=== PATIENT | male | born 1950 | race Caucasian/White ===

== ENCOUNTER → 2020-06-11 13:29 | Outpatient (BNVA) | payer OTHER, SELFPAY | PROVIDERS: Visit Provider Physician Assistant | DX: S64.11XA Injury of median nerve at wrist and hand level of right arm, initial encounter (principal); X58.XXXA Exposure to other specified factors, initial encounter; R20.2 Paresthesia of skin | CPT/HCPCS: 29125; 73110; 73130; 99204 ==

== ENCOUNTER → 2020-06-19 09:51 | Outpatient (BNVA) | payer OTHER, SELFPAY | PROVIDERS: Visit Provider Physician Assistant | DX: S66.911D Strain of unspecified muscle, fascia and tendon at wrist and hand level, right hand, subsequent encounter (principal); X58.XXXD Exposure to other specified factors, subsequent encounter | CPT/HCPCS: 99213 ==

== ENCOUNTER → 2020-06-28 13:30 | Outpatient (BNVA) | payer OTHER, SELFPAY | PROVIDERS: Visit Provider Physician Assistant Medical | DX: S63.501D Unspecified sprain of right wrist, subsequent encounter (principal); X58.XXXD Exposure to other specified factors, subsequent encounter | CPT/HCPCS: 99213 ==

== ENCOUNTER → 2020-07-11 09:18 | Outpatient (BNVA) | payer OTHER, SELFPAY | PROVIDERS: Visit Provider Physician Assistant | DX: S63.501D Unspecified sprain of right wrist, subsequent encounter (principal); X58.XXXD Exposure to other specified factors, subsequent encounter | CPT/HCPCS: 99213 ==

== ENCOUNTER → 2020-08-10 09:11 | Outpatient (BNVA) | payer OTHER, SELFPAY | PROVIDERS: Visit Provider Physician Assistant Medical | DX: S63.501D Unspecified sprain of right wrist, subsequent encounter (principal); X58.XXXD Exposure to other specified factors, subsequent encounter | CPT/HCPCS: 99213 ==

== ENCOUNTER → 2020-09-14 09:22 | Outpatient (BNVA) | payer OTHER, SELFPAY | PROVIDERS: Visit Provider Physician Assistant Medical | DX: G56.01 Carpal tunnel syndrome, right upper limb (principal); S63.501D Unspecified sprain of right wrist, subsequent encounter; X58.XXXD Exposure to other specified factors, subsequent encounter | CPT/HCPCS: 99213 ==

== ENCOUNTER → 2020-09-28 14:06 | Outpatient (BNVA) | payer OTHER, SELFPAY | PROVIDERS: Visit Provider Physician Assistant Medical | DX: S63.501D Unspecified sprain of right wrist, subsequent encounter (principal); X58.XXXD Exposure to other specified factors, subsequent encounter | CPT/HCPCS: 99213 ==

== ENCOUNTER → 2020-10-03 12:36 | Outpatient (BNVA) | payer OTHER, SELFPAY | PROVIDERS: Visit Provider Physician Assistant Medical | DX: M67.833 Other specified disorders of tendon, right wrist (principal); M65.9 Synovitis and tenosynovitis, unspecified | CPT/HCPCS: 99213 ==

== ENCOUNTER → 2020-11-14 08:19 | Outpatient (BNVA) | payer OTHER, SELFPAY | PROVIDERS: Visit Provider Orthopaedic Surgery | DX: M67.431 Ganglion, right wrist (principal); M77.8 Other enthesopathies, not elsewhere classified | CPT/HCPCS: 99202 ==

== ENCOUNTER 2022-07-08 08:29 | Outpatient (REF) | payer MEDICARE, SELFPAY ==
--- NOTE | ~2022-07-08 | XR_ITS ---
EXAMINATION: XR wrist RT min 3V CLINICAL INFORMATION: Reason for Exam M25.531 - Pain in right wrist COMPARISON: 06/11/2020 wrist radiographs TECHNIQUE: AP, lateral, and oblique views of the wrist FINDINGS: No acute fracture or dislocation. Joint spaces are maintained without significant degenerative change. No soft tissue abnormality. XR/XR wrist RT min 3V IMPRESSION: No acute osseous abnormality.
== END 2022-07-08 08:30 | disposition home or self-care (01) ==
LOC: HO.HOSX 08:29
PROVIDERS: PCP Internal Medicine; Visit Provider Orthopaedic Surgery
DX: M25.531 Pain in right wrist (principal); M77.8 Other enthesopathies, not elsewhere classified
CPT/HCPCS: 20550; 73110; 99212; J1100

== ENCOUNTER 2025-05-05 05:43 | Outpatient (REF) | payer OTHER, MEDICARE, SELFPAY ==
[2025-05-05 05:45] LABS: MANUAL DIFF FLAG NO
[2025-05-05 06:07] LABS: Hematocrit 39.5 % (42.0-52.0); Hemoglobin 13.1 g/dl (14.0-18.0); Imm Gran Abs Auto 0.32 X10*3/uL (0.00-0.03); Imm Gran Pct Auto 2.0 % (0.0-0.4); Lymphocytes Absolute Auto 0.7 X10*3/uL (1.2-4.9); Mean Corpuscular HGB Conc 33.2 g/dl (31.0-36.0); Mean Corpuscular Hemoglobin 29.8 pg (27.0-33.0); Mean Corpuscular Volume 89.8 fL (80.0-98.0); NRBC Abs Auto 0.000 X10*3/uL (0.0-0.012); NRBC Pct Auto 0.0 /100WBC (0.0-0.2); Platelet Count 173 X10*3/uL (160-400); Red Blood Count 4.40 X10*6/uL (4.60-5.80); White Blood Count 16.3 X10*3/uL (4.8-10.8)
[2025-05-05 06:23] LABS: Alanine Aminotransferase 40 U/L (0-40); Albumin Level 3.2 g/dL (3.5-5.0); Alkaline Phosphatase 74 U/L (39-117); Anion Gap 15 (12-20); Aspartate Amino Transferase 17 U/L (5-37); Blood Urea Nitrogen 25 mg/dL (9-16); Calcium 9.0 mg/dL (8.4-10.2); Carbon Dioxide 24 mmol/L (22-29); Chloride 107 mmol/L (96-108); Estimated Glomerular Filt Rate > 60; Potassium 4.1 mmol/L (3.3-5.1); Sodium 142 mmol/L (135-145); Total Protein 5.4 g/dL (6.5-8.0)
== END 2025-05-05 05:44 | disposition home or self-care (01) ==
LOC: HO.MMNH1L 05:43
PROVIDERS: Visit Provider Physician Assistant Medical
DX: B37.81 Candidal esophagitis (principal)
CPT/HCPCS: 36415; 80053; 83036; 85025

== ENCOUNTER 2025-05-08 05:45 | Outpatient (REF) | payer OTHER, MEDICARE, SELFPAY ==
--- OUTSIDE RECORDS SUMMARY | 2025-05-02 07:20 | XMS_ITS | Encounter Summary ---
Author Organization [facility] Address [address] [place] [address] Care Team Providers Care Candles Pourer Name Role Phone IssaRashaun griffithsdominic MORRISON Primary Care Provider [phone] Reason for Visit * Reason Comments Shortness of Breath Since yesterday nigh t * Auth/Cert (Routine) Specialty Diagnoses / Procedures Referred By Contac t Referred To Contact Diagnoses COPD (chronic obstructive pulmonary disease) (CMS/HCC V24, CMS/HCC V28) COPD exacerbation (CMS/HCC V24, CMS/HCC V28) Procedures . Gumaro Sloan MD [address] [place] [id number] Phone: tel: fax: [facility] [address] [place] [phone] Phone: tel: Referral ID Status Reason Start Date Expiration Date Visits Re quested Visits Authorized [id number] 1 1 Encounter Details Date Type Department Care Team (Latest Contact Info) Description 05/02/2025 7:20 AM EDT - 05/04/2025 4:38 PM EDT Hospital Encounter [facility] Inter[facility] Care Unit [address] [place] [address] Dano Gaspar MD [address] [place] [address] Gumaro Sloan MD [address] [place] [address] Marcell Botello MD [address] [place] [id number] Andrew Nieto MD [address] [place], [place] [phone] COPD exacerbation (CMS/HCC V24, CMS/HCC V28) (Primary Dx) Discharge Disposition: Custodial Facility Social History Tobacco Use Types Packs/Day Years Used Date Smoking Tobacco: Former Cigarettes Q uit: 07/20/1999 Smokeless Tobacco: Never Alcohol Use Standard Drinks/Week Comments Not Currently 0 (1 standard drink = 0.6 oz pur e alcohol) Housing Instability Answer Date Recorde d Are you worried that in the next 2 months you may not have stable housing? No 04/13/2025 Food Access & Nutrition Answer Date Rec orded Do you have access to a vari ety of food including fruits and vegetables? Yes 04/13/2025 Access to Healthcare Answer Date Record ed Within the last 3 months, ho w many times did you visit the emergency department for your medical care? 3 04/13/2025 Health Literacy Answer Date Recorded How often do you need to hav e someone help you when you read instructions, pamphlets, or other written material from your doctor or pharmacy? Never 04/13/2025 Caregiver: How often do you need to have someone help you when you read instructions, pamphlets, or other written material from your doctor or pharmacy? Not on file 04/13/2025 Financial Risk Answer Date Recorded How hard is it for you to pa y for the very basics like food, housing, medical care, and air conditioning / heating? Not very hard 04/13/2025 Transportation Answer Date Recorded Has the lack of transportati on kept you from meetings, work, or from getting things needed for daily living? No Has the lack of transportati on kept you from medical appointments or from getting medications? No 04/13/2025 Social Isolation Answer Date Recorded How often do you feel lonely or isolated from th ose around you? Never 04/13/2025 Food Risk Answer Date Recorded Within the past 12 months we worried whether our food would run out before we got money to buy more. Never true 04/13/2025 Within the past 12 months th e food we bought just didn't last and we didn't have money to get more. Never true 04/13/2025 Dependent Care Answer Date Recorded Do you need help finding or paying for care for your loved ones. For example, residential child care counselor or elderly care for an older adult? No 04/13/2025 Education Answer Date Recorded Do you think completing more education or training, like finishing a GED, going to college, or learning a trade, would be helpful for you? N/A 04/13/2025 Employment and Income Answer Date Recor ded During the last four weeks, have you been actively looking for work? No 04/13/2025 Living Situation Answer Date Recorded What is your living situation? Unrecognized valu e 04/13/2025 Interpersonal Safety Answer Date Record ed Physical Abuse Unrecognized value 05/02/2025 Verbal Abuse Unrecognized value 05/02/2025 Sex and Gender Information Value Date Recorded Sex Assigned at Male 08/11/2024 11:14 AM EST Legal Sex Male 6:45 AM EST Gender Identity Male 08/11/2024 11:14 AM EST Sexual Orientation Straight 08/11/2024 11 :14 AM EST documented as of this encounter Last Filed Vital Signs Vital Sign Reading Time Taken Comments Blood Pressure 145/78 05/04/2025 11:59 AM EDT Pulse 109 05/04/2025 11:59 AM EDT Temperature 36.1 C (96.9 F) 05/04/2025 11:59 AM EDT Respiratory Rate 28 05/04/2025 11:5 9 AM EDT Oxygen Saturation 93% 05/04/2025 12: 00 PM EDT 02 93 at rest and 89-92% with amb short distances on 3L Inhaled Oxygen Concentration - - Weight 89.8 kg (198 lb) 05/02/2025 7:37 AM EDT Height 172.7 cm (5' 8 ) 05/02/2025 7:37 AM EDT Body Mass Index 30.11 05/02/2025 7:37 AM EDT documented in this encounter Functional Status * Calculated C-SSRS Risk Score (Lifetime/Recent) Answer Date of Assessment Author No Risk Indicated 05/02/2025 7:37 AM EDT Sunita Jarvis RN * [place] Suicide Severity Rating Scale (Screener/Recent Self-Report) Question Answer Date of Assessment Author 1. Wish to be (Past 1 Month) No 7:37 AM EDT Sunita Jarvis RN 2. Non-Specific Active Suici alec Thoughts (Past 1 Month) No 05/02/2025 7:37 AM EDT Nataly Jarvis RN 6. Suicidal Behavior (Lifetime) No 7:37 AM EDT Sunita Jarvis RN documented as of this encounter Discharge Summaries * [facility] - 05/04/2025 12:54 PM EDT [place] DISCHARGE SUMMARY Patient Information Mervin Christian : 1950 [74 y.o.] Admitting Provider Gumaro Sloan MD Discharge Provider [facility], Andrew Nieto MD Primary Care Physician Karen Parsons NP Admission Date 05/02/2025 Discharge Date 05/04/2025 Summary of Hospital Problems Primary Discharge Diagnosis: Candidiasis of esophagus suspected ([facility] V24, [facility] V28) Oral candidiasis confirmed Acute on chronic hypoxic respiratory failure Secondary Discharge Diagnosis: End-stage COPD steroid, oxygen and NIPPV dependent Chronic hypoxic respiratory failure 3 L with rest 6 L with exertion History of pulmonary embolism Permanent atrial fibrillation with RVR Hypertension Anxiety Discharge Destination: SNF-anticipated length of stay less than 30 days Code Status at Discharge: Full Code - Confirmed Hospital Course Summary LOS: 0 days This is a 74-year-old male past medical history significant for chronic respiratory failure with hypoxia on 3 L O2 via NC and nocturnal BiPAP, COPD, pulmonary nodules, chronic atrial fibrillation oneliquis, hypertension, hyperlipidemia, history of PE, anxiety, amongst others, who presents emergency room with complaints of shortness of breath. Of note patient was recently hospitalized at [facility] 04/21/2025 to 04/25/2025 with acuteon chronic hypoxic respiratory failure with COVID-19 pneumonia and COPD exacerbation. Patient states that last night 05/01/2025 he developed shortness of breath, dry nonproductive cough, difficulty swallowing (which he believes is related to dry throat), and ongoing chest pain. Describes chest pain as: Constant, central, localized, nonradiating, pressure sensation. He presents emergency room for further evaluation and treatment. Denies fever, chills, focal weakness, headache, lightheadedness, dizziness, sore throat, congestion, palpitations, abdominal pain, nausea, vomiting, diarrhea, constipation, dysuria or hematuria. Denies recent travel, surgeries or sick contacts. Upon H&P patient is afebrile, heart rate 101, respiratory rate 20, blood pressure 115/79, oxygen saturation 99% on chronic 3 L via nasal cannula. Labs performed revealing WBC 16.4, potassium 3.2,albumin 2.8, high-sensitivity troponin 14 with repeat 13, BNP 73. Chest x-ray imaging performed reve aling:Stable findings of emphysema with hyperinflation suggesting chronic obstructive pulmonary disease. Basilar predominant scarring is unchanged. Surgical changes throughout the upper lungs are stable compared to prior. No new pneumonia, pleural effusion, or pneumothorax. Cardiac silhouette is stably enlarged. Bones are unchanged. See full report for additional details. EKG performed revealing sinus rhythm with sinus arrhythmia and right bundle branch block. Patient was administered DuoNeb, Solu-Medrol, and care was transferred to medical service for further evaluation and treatment. [facility] 05/02/25 74-year-old male past medical history significant for chronic respiratory failure with hypoxia on 3-6 L O2 via NC and nocturnal BiPAP, COPD, pulmonary nodules, chronic atrial fibrillation on eliquis,hypertension, hyperlipidemia, history of PE, anxiety, who presents with complaints of shortness of breath and chest pain. COPD exacerbation Patient with severe emphysema at baseline. 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 He is dependent on high liter flow oxygen, NIPPV and chronic steroids/azithromycin due tothe severity of his underlying lung disease. Patient recently treated for COVID-19 pneumonia and exacerbation just discharged on 04/25. Chest x-ray without new pathology. 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 He received Diflucan 400 mg IV x 1 followed by Diflucan 200 mg IV daily, transition to oral to complete a 14-day course. If symptoms do not improve could trial oral I itraconazole instead. Patient would be too high risk for any endoscopic procedures. History of pulmonary embolism - Continue chronic Eliquis Chronic atrial fibrillation with RVR Secondary hypercoagulable state - Continue chronic diltiazem. Suspect resting heart rates are likely chronically elevated given underlying pulmonary disease. - Continue chronic Eliquis Primary hypertension - Continue diltiazem as prescribed Mixed hyperlipidemia - Continue chronic statin Anxiety - Continue as needed alprazolam Advance directives More than 40 minutes spent discussing advance directives today: Prolonged discussions with patient's daughter Brittany Christian and the patient in regards to the severity of his underlying lung disease. Patient reports he was unaware of this. He reports the most relief he felt was and route to the hospital where he was administered something in my IV that made me relax . I suspect this was IV fentanyl for increased work of breathing. HARSH reviewed with the daughter and the patient. He has remained a full code. I have explained that given the severity of his lung disease if he were to require intubation his chances of extubation are extremely poor. We discussed quality of life options. I have o ffered palliative care consultation. 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 I have offered pulmonary consultation with the covering physician but they have declined. Patient's severe lung disease would qualify him for hospice. Morphine forincreased work of breathing could potentially improve his quality of life. Recommend continue ongoing discussions. Patient remains a full code. Follow-Up Instructions and Recommendations [facility] [place] [address] [facility], [address] [facility] [phone] No discharge procedures on file. There are no outpatient Patient Instructions on file for this admission. Discharge Medications Your medication list START taking these medications Instructions Last Dose Given Next Dose Due fluconazole 200 mg tablet Commonly known as: DIFLUCAN Take 1 tablet (200 mg total) by mouth 1 (one) time each day for 12 days. ipratropium-albuteroL 0.5-2.5 mg/3 mL nebulizer solution Commonly known as: DUONEB Take 3 mL by nebulization 4 (four) times a day. CHANGE how you take these medications Instructions Last Dose Given Next Dose Due predniSONE 10 mg tablet Commonly known as: DELTASONE Start taking on: May 04, 2025 What changed: See the new instructions. Take 3 tablets (30 mg total) by mouth 1 (one) time each day for 2 days, THEN 2 tablets (20 mg total) 1 (one) time each day for 2 days, THEN 1 tablet (10 mg total) 1 (one) time each day. CONTINUE taking these medications Instructions Last Dose Given Next Dose Due albuterol HFA 90 mcg/actuation inhaler Commonly known as: PROAIR HFA ; PROVENTIL HFA ; VENTOLIN HFA Inhale 2 puffs by mouth every 6 (six) hours if needed for wheezing. ALPRAZolam 0.5 mg tablet Commonly known as: XANAX Take 1 tablet (0.5 mg total) by mouth 3 (three) times a day if needed for anxiety. Max Daily Amount: 1.5 mg atorvastatin 20 mg tablet Commonly known as: LIPITOR TAKE 1 TABLET BY MOUTH EVERY DAY azithromycin 500 mg tablet Commonly known as: Zithromax Take 1 tablet (500 mg total) by mouth 3 (three) times a week. cholecalciferol 50 mcg (2,000 unit) tablet Commonly known as: VITAMIN D-3 TAKE 1 TABLET BY MOUTH EVERY DAY dilTIAZem LA 240 mg 24 hr tablet Commonly known as: CARDIZEM LA TAKE 1 TABLET BY MOUTH EVERY DAY Eliquis 5 mg tablet Generic drug: apixaban TAKE 1 TABLET BY MOUTH TWICE A DAY Incruse Ellipta 62.5 mcg/actuation inhalation Generic drug: umeclidinium INHALE 1 PUFF INTO THE LUNGS DAILY FOR 30 DAYS. montelukast 10 mg tablet Commonly known as: SINGULAIR TAKE 1 TABLET BY MOUTH EVERY NIGHT AT BEDTIME. roflumilast 500 mcg tablet Commonly known as: DALIRESP Take 1 tablet (500 mcg total) by mouth 1 (one) time each day. sildenafiL 50 mg tablet Commonly known as: VIAGRA Take 1 tablet (50 mg total) by mouth 1 (one) time each day if needed for erectile dysfunction. Where to Get Your Medications These medications were sent to [facility]/pharmacy #[id number] - [place] - [address] [place] [address] Hours: 24-hours predniSONE 10 mg tablet Information about where to get these medications is not yet available Ask your nurse or doctor about these medications fluconazole 200 mg tablet ipratropium-albuteroL 0.5-2.5 mg/3 mL nebulizer solution Physical Exam at time of Discharge Physical Exam Constitutional: Appearance: Normal appearance. HENT: Head: Normocephalic and atraumatic. Mouth/Throat: Mouth: Mucous membranes are dry. Comments: Oropharynx erythematous with white plaque Eyes: Extraocular Movements: Extraocular movements intact. Conjunctiva/sclera: Conjunctivae normal. Pupils: Pupils are equal, round, and reactive to light. Cardiovascular: Rate and Rhythm: Normal rate and regular rhythm. Pulmonary: Effort: Tachypnea and accessory muscle usage present. Breath sounds: Normal breath sounds. No wheezing, rhonchi or rales. Comments: Patient without wheeze rhonchi or crackle with good air movement today Abdominal: General: Bowel sounds are normal. There is no distension. Palpations: Abdomen is soft. There is no mass. Tenderness: There is no abdominal tenderness. There is no rebound. Musculoskeletal: General: Normal range of motion. Cervical back: Normal range of motion. Skin: General: Skin is warm. Neurological: General: No focal deficit present. Mental Status: He is alert and oriented to person, place, and time. Comments: Tremor Psychiatric: Mood and Affect: Mood is anxious. Vitals Visit Vitals BP (!) 145/78 Pulse 109 Temp 36.1 ??C (96.9 ??F) Resp (!) 28 Temp (24hrs), Av.3 ??C (97.4 ??F), Min:36.1 ??C (96.9 ??F), Max:36.6 ??C (97.8 ??F) Body mass index is 30.11 kg/m??. No results found for: PTWT , PTHT Latest Reference Range & Units Most Recent pH, Tulio 7.32 - 7.42 pH 7.40 05/02/25 09:33 pCO2, Tulio 41 - 51 mmHg 59 (H) 05/02/25 09:33 pO2, Tulio 25 - 40 mmHg 28 05/02/25 09:33 HCO3, Venous 22.0 - 26.0 mmol/L 30.5 (H) 05/02/25 09:33 Base Excess, Tulio -2.0 - 2.0 mmol/L 9.4 (H) 05/02/25 09:33 O2 Sat, Tulio % 37.5 05/02/25 09:33 Sodium 133 - 145 mmol/L 143 05/04/25 06:30 Potassium 3.5 - 5.5 mmol/L 3.7 05/04/25 06:30 Chloride 96 - 110 mmol/L 107 05/04/25 06:30 CO2 21 - 32 mmol/L 27 05/04/25 06:30 Anion Gap 3 - 11 9 05/04/25 06:30 Glucose 70 - 100 mg/dL 158 (H) 05/04/25 06:30 BUN 5 - 25 mg/dL 22 05/04/25 06:30 Creatinine 0.70 - 1.30 mg/dL 1.13 05/04/25 06:30 Calculated GFR >=60 mL/min/1.73m2 69 05/04/25 06:30 BUN/Creatinine Ratio - 19.5 05/04/25 06:30 Calcium 8.5 - 10.5 mg/dL 9.2 05/04/25 06:30 AST (SGOT) 10 - 42 unit/L 19 05/02/25 07:55 ALT (SGPT) 10 - 60 unit/L 54 05/02/25 07:55 Alkaline Phosphatase 42 - 121 unit/L 86 05/02/25 07:55 Total Protein 6.0 - 8.0 g/dL 5.8 (L) 05/02/25 07:55 Albumin 3.2 - 5.0 g/dL 2.8 (L) 05/02/25 07:55 Total Bilirubin 0.0 - 1.4 mg/dL 1.0 05/02/25 07:55 (H): Data is abnormally high (L): Data is abnormally low Latest Reference Range & Units Most Recent B Type Natriuretic Peptide <=100 pcg/mL 73 10/14/25 07:55 High Sensitivity Troponin I <=79 ng/L 13 05/02/25 09:33 Latest Reference Range & Units Most Recent Auto WBC 4.8 - 10.8 K/mcL 16.3 (H) 05/04/25 06:30 RBC 4.50 - 5.50 M/mcL 4.50 05/04/25 06:30 Hemoglobin 13.5 - 17.5 g/dL 13.6 05/04/25 06:30 Hematocrit 42.0 - 54.0 % 40.7 (L) 05/04/25 06:30 MCV 79.0 - 98.0 FL 89.6 05/04/25 06:30 MCH 27.0 - 32.0 pcg 30.0 05/04/25 06:30 MCHC 32.0 - 37.0 g/dL 33.4 05/04/25 06:30 RDW 11.0 - 15.0 % 16.8 (H) 05/04/25 06:30 Platelets 130 - 400 K/mcL 178 05/04/25 06:30 MPV 7.0 - 11.0 FL 10.4 05/04/25 06:30 Neutrophils Relative % 91.7 05/04/25 06:30 Immature Granulocytes Relative % 2.6 05/04/25 06:30 Lymphocytes Relative % 3.1 05/04/25 06:30 Monocytes Relative % 2.3 05/04/25 06:30 Eosinophils Relative % 0.0 05/04/25 06:30 Basophils Relative % 0.3 05/04/25 06:30 Neutrophils Absolute 1.50 - 7.00 K/mcL 14.96 (H) 05/04/25 06:30 Immature Granulocytes Absolute 0.00 - 0.03 K/mcL 0.42 (H) 05/04/25 06:30 Lymphocytes Absolute 1.00 - 5.00 K/mcL 0.51 (L) 05/04/25 06:30 Monocytes Absolute 0.20 - 1.00 K/mcL 0.38 05/04/25 06:30 Eosinophils Absolute 0.00 - 0.50 K/mcL 0.00 05/04/25 06:30 Basophils Absolute 0.00 - 0.20 K/mcL 0.05 05/04/25 06:30 NRBC <1.0 % 0.0 05/04/25 06:30 NRBC Absolute <0.10 K/mcL 0.00 05/04/25 06:30 Neutrophils Percent Manual % 85.0 05/02/25 07:55 Lymphocytes Percent Manual % 9.0 05/02/25 07:55 Monocytes Percent Manual % 3.0 05/02/25 07:55 Eosinophils Percent Manual % 2.0 05/02/25 07:55 Basophils Percent Manual % 0.0 05/02/25 07:55 Metamyelocytes Percent Manual % 2.0 (H) 05/02/25 07:55 Myelocytes Percent Manual % 1.0 (H) 05/02/25 07:55 Neutrophils Absolute Manual 1.50 - 7.00 K/mcL 13.94 (H) 05/02/25 07:55 Lymphocytes Absolute Manual 1.00 - 5.00 K/mcL 1.48 05/02/25 07:55 Monocytes Absolute Manual 0.20 - 1.00 K/mcL 0.49 05/02/25 07:55 Eosinophils Absolute Manual 0.00 - 0.50 K/mcL 0.33 05/02/25 07:55 Basophils Absolute Manual 0.00 - 0.20 K/mcL 0.00 05/02/25 07:55 Metamyelocytes Absolute Manual 0.00 - 0.00 K/mcL 0.33 (H) 05/02/25 07:55 Myelocytes Absolute Manual 0.00 - 0.00 K/mcL 0.16 (H) 05/02/25 07:55 RBC Morphology Consistent with indices, Normal for [place] Consistent with indices 05/02/25 07:55 PLT Morphology Normal See Note ! 05/02/25 07:55 (H): Data is abnormally high (L): Data is abnormally low !: Data is abnormal XR CHEST 2 VIEWS INDICATION: Dyspnea TECHNIQUE: XR CHEST 2 VIEWS COMPARISON: 04/21/2025 Impression: FINDINGS/IMPRESSION: Stable findings of emphysema with hyperinflation suggesting chronic obstructive pulmonary disease. Basilar predominant scarring is unchanged. Surgical changes throughout the upper lungs are stable compared to prior. No new pneumonia, pleural effusion, or pneumothorax. Cardiac silhouette is stably enlarged. Bones are unchanged. -------- FINAL REPORT -------- Dictated By: SUDEEP CAMPOS Dictated Date: 05/02/2025 40 minutes spent reviewing medical record, independently interpreting telemetry monitoring, evaluating the patient, coordinating care with physical therapy, ICC, RN and attending physician to facilitate today's discharge. Additional 40 minutes spent with Brittany Christian and patient discussing advance directives, reviewingMOLST, goals of care, please see above Cosigned by Andrew Nieto MD at 05/06/2025 1:34 PM EDT documented in this encounter Discharge Instructions * Attachments The following attachments cannot be sent through Care Everywhere. * COPD Exacerbation Plan (Hungarian) documented in this encounter Medications at Time of Discharge albuterol HFA (PROAIR HFA ; PROVENTIL HFA ; VENTOLIN HFA) 90 mcg/actuation inhaler Inhale 2 puffs by mouth every 6 (six) hours if needed for wheezing. 6.7 g 11 06/23/2024 ALPRAZolam (XANAX) 0.5 mg tablet Take 1 tablet (0.5 mg total) by mouth 3 (three) times a day if needed for anxiety. Max Daily Amount: 1.5 mg 56 tablet 2 12/02/2024 atorvastatin (LIPITOR) 20 mg tablet TAKE 1 TABLET BY MOUTH EVERY DAY 90 tablet 1 04/18/2025 azithromycin (Zithromax) 500 mg tablet Take 1 tablet (500 mg total) by mouth 3 (three) times a week. 14 each 2 04/17/2025 cholecalciferol (VITAMIN D-3) 50 mcg (2,000 unit) tablet TAKE 1 TABLET BY MOUTH EVERY DAY 90 tablet 1 02/20/2025 dilTIAZem LA (CARDIZEM LA) 240 mg 24 hr tabletIndications :Unspecified atrial fibrillation (CMS/HCC V24, CMS/HCC V28) TAKE 1 TABLET BY MOUTH EVERY DAY 90 tablet 1 04/05/2025 Eliquis 5 mg tablet TAKE 1 TABLET BY MOUTH TWICE A DAY 60 tablet 5 12/14/2024 fluconazole (DIFLUCAN) 200 mg tablet Take 1 tablet (200 mg total) by mouth 1 (one) time each day for 12 days. 05/04/2025 5 Incruse Ellipta 62.5 mcg/actuation inhalation INHALE 1 PUFF INTO THE LUNGS DAILY FOR 30 DAYS. 30 each 11 01/17/2025 ipratropium-albut Tavon (DUONEB) 0.5-2.5 mg/3 mL nebulizer solution Take 3 mL by nebulization 4 (four) times a day. 05/04/2025 6 montelukast (SINGULAIR) 10 mg tabletIndications :Emphysema, unspecified (CMS/HCC V24, CMS/HCC V28) TAKE 1 TABLET BY MOUTH EVERY NIGHT AT BEDTIME. 30 tablet 10 08/15/2024 predniSONE (DELTASONE) 10 mg tablet Take 3 tablets (30 mg total) by mouth 1 (one) time each day for 2 days, THEN 2 tablets (20 mg total) 1 (one) time each day for 2 days, THEN 1 tablet (10 mg total) 1 (one) time each day. 370 each 05/04/2025 6 roflumilast (DALIRESP) 500 mcg tablet Take 1 tablet (500 mcg total) by mouth 1 (one) time each day. 30 each 11 08/25/2024 6 sildenafiL (VIAGRA) 50 mg tablet Take 1 tablet (50 mg total) by mouth 1 (one) time each day if needed for erectile dysfunction. 12 tablet 3 10/14/2024 6 documented as of this encounter Ordered Prescriptions Prescription Sig Dispense Quantity Refills Last Filled Start Date End Date predniSONE (DELTASONE) 10 mg tablet Take 3 tablets (30 mg total) by mouth 1 (one) time each day for 2 days, THEN 2 tablets (20 mg total) 1 (one) time each day for 2 days, THEN 1 tablet (10 mg total) 1 (one) time each day. 370 each 05/04/2025 6 ipratropium-albut Tavon (DUONEB) 0.5-2.5 mg/3 mL nebulizer solution Take 3 mL by nebulization 4 (four) times a day. 05/04/2025 6 fluconazole (DIFLUCAN) 200 mg tablet Take 1 tablet (200 mg total) by mouth 1 (one) time each day for 12 days. 05/04/2025 5 predniSONE (DELTASONE) 10 mg tablet Take 5 tablets (50 mg total) by mouth 1 (one) time each day for 2 days, THEN 4 tablets (40 mg total) 1 (one) time each day for 2 days, THEN 3 tablets (30 mg total) 1 (one) time each day for 2 days, THEN 2 tablets (20 mg total) 1 (one) time each day for 2 days, THEN 1 tablet (10 mg total) 1 (one) time each day. 05/04/2025 5 documented in this encounter Discharge Disposition Disposition Code Departure Means Destination Comment s Custodial Facility Ambulance [facility] Nursing, Intermediate Care, or Assisted Living Facility documented in this encounter Progress Notes * Mary Mejía RN - 05/04/2025 4:37 PM EDT Patient alert and oriented. Stable for discharge to SNF per [facility]. Discharge paperwork given to EMS team with [facility]. IV removed. Patient transported via [facility] * Marian Hartley RN - 05/04/2025 2:18 PM EDT 05/04/25 1417 Transportation Transportation at discharge [facility] providing transportation [place] What day is the transport expected? 05/04/25 What time is the transport expected? 1600 Final Discharge Disposition Custodial Facility ICC spoke with [facility] and confirmed acceptance to facility today. Pt d/c to [facility] per pt preference. Pt/daughter at bedside aware and agreeable to d/c plan * Sofia Sarmiento, PT - 05/04/2025 12:00 PM EDT [facility] Physical Therapy Evaluation & Treatment PT Discharge Recommendations: custodial facility placement Staff Recommendations for safe patient handling: min A ambulate 5' with no assistive device Precautions Medical Precautions: Droplet, Other (Comment) Safety Interventions: Call golden within reach, ID band on RUE Weight Bearing Status: Full LUE Weight Bearing Status: Full RLE Weight Bearing Status: Full LLE Weight Bearing Status: Full Fall prevention education provided including use of call light in hospital, use of appropriate assistive device, safe mobility techniques, and safety measures at home. PT Received On: 05/04/25 PT Start Time: 1200 PT Stop Time: 1230 PT Time Calculation (min): 30 min General Family/Caregiver Present: Yes General Comments: daughter Precautions Medical Precautions: Droplet, Other (Comment) Safety Interventions: Call golden within reach, ID band on Swallow Precautions: Aspiration RUE Weight Bearing Status: Full LUE Weight Bearing Status: Full RLE Weight Bearing Status: Full LLE Weight Bearing Status: Full Cognition Overall Cognitive Status: Within Functional Limits Arousal/Alertness: Appropriate responses to stimuli Orientation Level: Oriented X4 Following Commands: Follows all commands and directions without difficulty Safety Judgment: Good awareness of safety precautions Hearing: Intact Vision: Intact Speech: Intact Integumentary: no acute issues noted History of Present Illness: Patient is a 74 y.o. male admitted to [facility] on 05/02/2025. Problem List[1] Medical History[2] Surgical History[3] Social History Home Living Environment: Home Living Type of Home: Apartment Lives With: Alone Home Adaptive Equipment: None Home Layout: One level Home Access: Stairs to enter with rails Entrance Stairs-Rails: Rail on the right going up Entrance Stairs-Number of Steps: 10 Prior Function Level of [place]: Independent with mobility and functional transfers Ambulation Status: Household ambulator, Community ambulator Receives Help From: Family Indoor Mobility Assistance: Independent Stairs Assistance : Independent Prior Device Use: No prior device use Which is your dominant hand?: Right General Assessment Management Intern Services Is an book jacket cover machine operator used? : No 05/04/25 1200 PT Last Visit PT Received On 05/04/25 General Family/Caregiver Present Yes General Comments daughter PT Time Calculation PT Start Time 1200 PT Stop Time 1230 PT Time Calculation (min) 30 min Precautions Medical Precautions Droplet;Other (Comment) Safety Interventions Call golden within reach;ID band on RUE Weight Bearing Status Full LUE Weight Bearing Status Full RLE Weight Bearing Status Full LLE Weight Bearing Status Full Vital Signs Patient Identification Yes SpO2 93 % (02 93 at rest and 89-92% with amb short distances on 3L) Oxygen Therapy Pulse Oximetry Location Finger Patient Activity Walking Oxygen Therapy Supplemental oxygen O2 Delivery Method Nasal cannula O2 Flow Rate (L/min) 3 L/min Pain Assessment Pain Assessment No/denies pain Pain Score 0 - No pain Cognition Overall Cognitive Status WFL Arousal/Alertness Appropriate responses to stimuli Orientation Level Oriented X4 Following Commands Follows all commands and directions without difficulty Safety Judgment Good awareness of safety precautions Home Living Type of Home Apartment Lives With Alone Home Adaptive Equipment None Home Layout One level Home Access Stairs to enter with rails Entrance Stairs-Rails Rail on the right going up Entrance Stairs-Number of Steps 10 Prior Function Level of [place] Independent with mobility and functional transfers Ambulation Status Household ambulator;Community ambulator Receives Help From Family Indoor Mobility Assistance Independent Stairs Assistance Independent Prior Device Use No prior device use Which is your dominant hand? Right Activity Tolerance Endurance Tolerates less than 10 min exercise with changes in vital signs Activity Tolerance Comments the pt with severe SOB with minimal exertion, 02 sats 89-91% on 3L but needs extended period of time to catch his breath and cues needed for pursed lip breathing Sensation Light Touch No apparent deficits Proprioception Proprioception No apparent deficits Static Sitting Balance Static Sitting-Level of Assistance Independent Static Sitting-Balance Support Feet supported Dynamic Sitting Balance Dynamic Sitting-Level of Assistance Supervision Dynamic Sitting-Balance Forward lean Dynamic Sitting-Balance Support Feet supported;Left upper extremity supported;Right upper extremitysupported Static Standing Balance Static Standing-Level of Assistance Contact guard Static Standing-Balance Support No upper extremity supported Dynamic Standing Balance Dynamic Standing-Level of Assistance Minimum assistance Dynamic Standing-Balance Ambulation Dynamic Standing-Balance Support No upper extremity supported Dynamic Standing-Comments as the pt fatigues after 4-5' of ambulation his balance decreases and he needs hands on assistance to maintain balance Bed Mobility Sitting to Lying Assistance Independent Lying to Sitting Assistance Independent Transfers Sit to Stand Assistance Contact guard Chair/Bed to Chair/Bed Transfer Assistance Contact guard Ambulation Walking Assistance Minimum assistance Walking Deficit (the pt fatigues quickly with loss of balance noted and tremors in arms with fatigue) Device No device Distance Ambulated (ft) 5 (he ambulated 5' x 3) Stairs 4 steps: Assistance Minimum assistance Rails Right Number of Stairs 2 Stairs Comments the pt needed assistance to lift up onto the step with 1 railing and became very SOB necessitating a seated rest break RUE Assessment RUE Assessment Within Functional Limits LUE Assessment LUE Assessment Within Functional Limits RLE Assessment RLE Assessment Within Functional Limits LLE Assessment LLE Assessment Within Functional Limits PT Assessment PT Assessment Results Decreased strength;Decreased endurance;Impaired balance;Impaired gait;Decreased mobility Prognosis Good Evaluation/Treatment Tolerance Patient limited by fatigue Medical Staff Made Aware Yes Plan Treatment/Interventions Functional transfer training;LE strengthening/ROM;Endurance training;Patient/family training;Bed mobility;Gait training;Balance training PT Plan Skilled PT PT Frequency 2-5 days per week PT Discharge Recommendations custodial facility placement PT - Evaluation Status Complete PT Evaluation Time Entry PT Evaluation (Moderate) Time Entry 30 ADDITIONAL COMMENTS: Chart reviewed. RN clears pt for session. Pt agrees to participate and presented in supine upon PT arrival. All lines in place. Gait belt utilized throughout treatment to maximize safety. Medical precautions observed appropriately. Initiated education on the importance of PT, bed mobility safety, Transfer Safety, Ambulation Safety , Therapy Plan of Care, Home Safety, Energy Conservations strategies, and importance of OOB activity . Pt verbalized understanding. EXIT STATUS: Session ended with patient seated at the edge of the bed , tray table and call light within reach, and RN made aware. Physical Therapy Assessment/Plan Mervin Christian is a 74 y.o. male admitted to [facility] on 05/02/2025 for COPD (chronic obstructive pulmonary disease) ([facility] V24, [facility] V28) [J44.9] COPD exacerbation ([facility] V24, [facility] V28) [J44.1] . Pt presents with decreased BLE strength, balance deficits, decreased activity tolerance, and far below functional baseline. Pt performed bed mobility Independent, HOB elevated, Transfers with Contact guard, None and ambulates Minimal assist with None 5 ft . Pt will benefit from skilled acute PT during hospital stay to improve the deficits listed above and optimize function. PT recommends custodial facility placement when medically stable for safe discharge and to optimize functional mobility and independence. Goals Encounter Problems Encounter Problems (Active) Template: Physical Therapy Problem: PT Short Term Goals Dates: Start: 05/04/25 Goal: PT STG 1 the pt will ambulate 50' with no assistive device independently Dates: Start: 05/04/25 Expected End: 05/11/25 Goal: PT STG 2 the pt will be independent with transfers Dates: Start: 05/04/25 Expected End: 05/11/25 Goal: PT STG 3 the pt will go up and down 12 steps with right railing and supervision Dates: Start: 05/04/25 Expected End: 05/11/25 Encounter Problems (Resolved) There are no resolved problems. Education Documentation Mobility Training, taught by Sofia Sarmiento, PT at 05/04/2025 12:50 PM. Learner: Family, Patient Readiness: Eager Method: Explanation, Demonstration Response: Verbalizes Understanding Comment: The pt educated on pacing, pursed lip breathing. He was also educated on recommendation for STR and is in agreement Modified Diet Training, taught by Sofia Sarmiento, PT at 05/04/2025 12:50 PM. Learner: Family, Patient Readiness: Eager Method: Explanation, Demonstration Response: Verbalizes Understanding Comment: The pt educated on pacing, pursed lip breathing. He was also educated on recommendation for STR and is in agreement Education Comments No comments found. Sofia Sarmiento, PT [1] Patient Active Problem List Diagnosis Anxiety Hypercholesterolemia Pulmonary nodules Multiple subsegmental pulmonary emboli without acute cor pulmonale ([facility] V24, [facility] V28) Paroxysmal atrial fibrillation ([facility] V24, [facility] V28) Pulmonary emphysema ([facility] V24, [facility] V28) Renal mass, left Type 2 diabetes mellitus without complication, without long-term current use of insulin ([facility] V24, [facility] V28) Acute on chronic respiratory failure with hypoxia and hypercapnia ([facility] V24, [facility] V28) Acute hypoxemic respiratory failure ([facility] V24, [facility] V28) COPD (chronic obstructive pulmonary disease) ([facility] V24, [facility] V28) Candidiasis of esophagus ([facility] V24, [facility] V28) [2] Past Medical History: Diagnosis Date Atrial fibrillation ([facility] V24, [facility] V28) DX:Atrial fibrillation ([facility]) Chronic hypoxic respiratory failure ([facility] V24, [facility] V28) NOCTURNAL BIPAP COPD (chronic obstructive pulmonary disease) ([facility] V24, [facility] V28) DX:COPD (chronic obstructive pulmonary disease) (HCC) Generalized anxiety disorder DX:Generalized anxiety disorder Hypertension Mixed hyperlipidemia DX:Mixed hyperlipidemia Pulmonary embolism ([facility]/H[facility] V24, [facility] V28) Pulmonary nodules DX:Pulmonary nodules [3] Past Surgical History: Procedure Laterality Date FOOT SURGERY Right PROCEDURE: [place] UNLISTED PROCEDURE FOOT/TOES * Basil Trent - 05/04/2025 10:14 AM EDT SPIRITUAL CARE Date/Time:05/04/25 at 10:14 AM EDT Type of Visit: Initial Visit and [employer] Rounding Reason for Visit: Spiritual/Emotional Support and Spiritual Assessment Time Spent: 15 Minutes Location: Sacramental Encounters: Sacrament of Sick-Anointing: Anointed Spiritual Distress Assessment: Spiritual Distress Assessment at beginning of visit Meaning - Overall Life Balance: Some evidence of unmet spiritual need Transcendence: No evidence of unmet spiritual need Values - Acknowledgement: No evidence of unmet spiritual need Values - Control: No evidence of unmet spiritual need Psycho-Social Identity: No evidence of unmet spiritual need SDAT Beginning of Visit Average Score: 0.2 Spiritual Distress Assessment at end of visit Meaning - Overall Life Balance: Some evidence of unmet spiritual need Transcendence: No evidence of unmet spiritual need Values - Acknowledgement: No evidence of unmet spiritual need Values - Control: No evidence of unmet spiritual need Psycho-Social Identity: No evidence of unmet spiritual need SDAT End of Visit Average Score: 0.2 Spiritual Assessment/Distress Spiritual Care Assessment: Assessment: Mervin, was awake, alert, seated in the bed resting at the time of visit. His daughter,Jose, was seated in the chair providing support. Mervin, voiced not feeling well. Hopeful with careplan and treatment to get better. Voiced appreciation for family support and love. Emelia uatsdin is Zoroastrian, expressed desire to receive sacrament of anointing of the sick, prayed for recovery and good health. Thankful for the visit. Intervention: NE Spiritual Care Interventions : provided support, explored hope, listened empathically, and provided prayer Outcomes: expressed gratitude and expressed peace Plan of Care: Visit as needed *Reference: Spiritual Distress Assessment Tool: The SDAT is a clinical tool used by chaplains to identify unmet spiritual and emotional needs that can impact Goals of Care in the following categories: Spiritual Distress Assessment Legend Spiritual Needs Related Questions Meaning Are you having difficulties coping with what is happening to your now? Does your hospitalization have any repercussions on the way you live usually? Transcendence Do you have a particular uatsdin, emelia, or spirituality? Is your uatsdin/spirituality/emelia challenged by what is happening to you now? Values Do you think that the health professionals caring for you know you well enough? Do you feel that you are participating in the decisions made about your care? Psycho-Social Identity Do you have any worries or difficulties regarding your family or other persons close to you? Do you feel lonely? Do you have links to your emelia community? SCALE 0= no evidence of unmet spiritual needs 1= some evidence of unmet spiritual needs 2= substantial evidence of unmet spiritual needs 3= evidence of severe unmet spiritual needs * Nel Damico CCC-DECATING MACHINE OPERATOR - 05/04/2025 8:30 AM EDT Images from the original note were not included. Speech Language Pathology [facility] DECATING MACHINE OPERATOR TREATMENT NOTE NAME: Mervin Christian DATE OF : 1950 ROOM: Pt ID by: Self, Full Name and DATE: 05/04/25 RECOMMENDATIONS: DIET SOLIDS RECOMMENDATIONS: IDDSI Level 7 Easy to Chew DIET LIQUIDS RECOMMENDATIONS: Thin liquids ASPIRATION RISK: Diet Solids Recommendation: IDDSI Level 7 Easy to Chew Diet Liquids Recommendation: Thin liquids Liquid Administration Via: Cup, Straw Compensatory Swallowing Strategies: Upright as possible for all oral intake, Remain upright for 20-30 minutes after meals, Alternate solids and liquids, Small bites/sips, Eat/feed slowly, Slow rate of intake Recommended Medication Route: PO IMPRESSIONS: DECATING MACHINE OPERATOR ASSESSMENT: DECATING MACHINE OPERATOR Assessment Results: Within functional limits Dysphagia Diagnosis: Within Functional Limits Evaluation/Treatment Tolerance: Patient tolerated treatment well Comments: Pt presents with functional swallow at this time, following hospitalization for COPD exacerbation secondary to COVID dx. Pt with mildly impulsive intake, with rapid intake of large boluses;however, orally managed well and no overt clinical s/s of pulmonary compromise. Recommend pt discharge from swallow services at this time, d/t observed functional swallow with IDDSI 7 ETC/0 thin liquids. Provided education re: safe swallow strategies; pt verbalized comprehension. Medical Staff Made Aware: Yes Comments: Message sent to RN, PA, and MD TIME CALCULATION: DECATING MACHINE OPERATOR Start Time: 0830 DECATING MACHINE OPERATOR Stop Time: 0845 DECATING MACHINE OPERATOR Time Calculation (min): 15 min Management Intern Required: No ADMISSION DIAGNOSIS: COPD (chronic obstructive pulmonary disease) ([facility] V24, [facility] V28) [J44.9] COPD exacerbation ([facility] V24, [facility] V28) [J44.1] FAMILY/CAREGIVER PRESENT: No SUBJECTIVE SUBJECTIVE: Chart reviewed and cleared by RN for DECATING MACHINE OPERATOR session. Pt sat in bed upon arrival, agreeableto breakfast and observation at this time; sat on side of bed for PO intake. Pt without concerns, reported tolerating IDDSI 7 ETC diet. Pt without c/o of acute pain during visit. RESPIRATORY STATUS: Nasal Cannula PRECAUTIONS: Medical Precautions: Droplet, Other (Comment) (Enhanced droplet) Swallow Precautions: Aspiration MENTAL STATUS Alert Responsive Cooperative OBJECTIVE PAIN: OXYGEN THERAPY: Patient Activity: At rest O2 Delivery Method: Nasal cannula O2 Flow Rate (L/min): 3 L/min TREATMENTS: Treatments: Swallow Function SWALLOW FUNCTION: Swallow/Oral Function Treatment Time Entry: 15 Swallow Activity 1: Thin liquids via consecutive sips via cup edge x 3 (~8 swallows total), self fed, orange juice: appropriate oral phase, no overt clinical s/s of pulmonary compromise observed. Swallow Activity 2: IDDSI 7 ETC x 4, self fed, pancakes and eggs: pt with mildly impulsive intake, evidenced by rapid intake of large boluses; however, preparation and transit managed well. Mild oralresiduals cleared with independent liquid wash. No overt clinical s/s of pulmonary compromise observed. ASPIRATION RISK: Diet Solids Recommendation: IDDSI Level 7 Easy to Chew Diet Liquids Recommendation: Thin liquids Liquid Administration Via: Cup, Straw Compensatory Swallowing Strategies: Upright as possible for all oral intake, Remain upright for 20-30 minutes after meals, Alternate solids and liquids, Small bites/sips, Eat/feed slowly, Slow rate of intake Recommended Medication Route: PO SPEECH AND LANGUAGE: CURRENT DIET ORDERED: Dietary Orders (From admission, onward) Start Ordered 05/03/25 0554 Adult diet [facility]; General, Modified Consistency Options for Liquids and Solids; Regular; IDDSI Level 7 Easy to Chew Diet effective now Question Answer Comment Location [facility] Diet Type (req) General Diet Type (req) Modified Consistency Options for Liquids and Solids General Diet Regular Modified Consistency Options for Liquids and Solids IDDSI Level 7 Easy to Chew 05/03/25 0553 PLAN DECATING MACHINE OPERATOR PLAN: Treatment/Interventions: Swallow function DECATING MACHINE OPERATOR Plan: No skilled DECATING MACHINE OPERATOR No Skilled DECATING MACHINE OPERATOR: Independent with swallowing, At baseline function DECATING MACHINE OPERATOR Frequency: Follow-up visit only DECATING MACHINE OPERATOR - Evaluation Status: Complete Diet Recommendations: IDDSI 7/0 easy to chew/thins DISCHARGE RECOMMENDATIONS No Speech-Language Pathology (DECATING MACHINE OPERATOR) services/needs at next level of care. EDUCATION EDUCATION: Education Documentation Modified Diet Training, taught by SERENA Carballo at 05/04/2025 10:12 AM. Learner: Patient Readiness: Acceptance Method: Explanation Response: Verbalizes Understanding, Demonstrated Understanding Education Comments No comments found. GOALS GOALS: Encounter Problems Encounter Problems (Active) There are no active problems. Encounter Problems (Resolved) Template: Speech Therapy Problem: Swallowing Dates: Start: 05/02/25 Resolved: 05/04/25 Goal: Patient will tolerate the least restrictive diet consistency to allow for safe consumption ofdaily meals (Resolved) Dates: Start: 05/02/25 Expected End: 05/09/25 Resolved: 05/04/25 Outcomes Date/Time User Outcome 05/04/25 1011 SERENA Carballo Completed Goal: Patient will tolerate recommended food and liquid consistencies without clinical signs and symptoms of aspirations (Resolved) Dates: Start: 05/02/25 Expected End: 05/09/25 Resolved: 05/04/25 Outcomes Date/Time User Outcome 05/04/25 1011 SERENA Carballo Completed Goal: Patient will follow recommended swallowing strategies (Resolved) Dates: Start: 05/02/25 Expected End: 05/09/25 Resolved: 05/04/25 Outcomes Date/Time User Outcome 05/04/25 1011 SERENA Carballo Completed SERENA Carballo 05/04/2025 * Shyann Staton RN - 05/03/2025 2:55 PM EDT 05/03/25 1454 Initial Transition Plan Initial Transition Plan Home Health Care Back up Transition Plan Back up Transition plan Custodial Facility Discharge Planning Living Arrangements Alone Type of Residence Private residence (2nd pa appt w 10 steps to enter) Assistive Devices None Support Systems Children Medication Coverage Has Med Coverage Under Insurance Plan Yes Medication Affordability No concerns related to payment for meds Anticipated Discharge Needs Discipline following for SNF placement Back Roll Lathe Operator Informed Choice Informed Choice Given? Yes OLYA: 05/04-05/05 Plan: [facility] vs SNF Barriers: covid +, IV abx, solu medthrush, Bipap, W 13.9, BP 144/101, occult +, Therapy Eval: pend Referral status: entered per patient choice Auth status: medicare-observation status Last BM: 05/03 HCP: Yes Support Persons and Availability: Family PCP: Karen Parsons NP * [facility] - 05/03/2025 1:25 PM EDT Images from the original note were not included. SHAAN PROGRESS NOTE Date: 05/03/2025 Author: [facility] Patient ID: Mervin Christian is a 74 y.o. male : 1950 MR#: [id number] SUBJECTIVE Subjective Patient endorses cough today with sputum production. He denies hemoptysis. Episode of questionable bright red blood per rectum overnight with heme positive stools has not recurred. Appetite is fair. Patient complains of food getting stuck just above the clavicle area when swallowing. This is new started over the past few weeks. Patient confirms he is chronically on prednisone with various doses. He reports he uses NIPPV at bedtime and throughout the day. Patient reports that he lives alone. He defers his advanced directives to his daughter Brittany. Allergies Patient has no known allergies. Current Medications: MEDSSCHEDULED[1] MEDSCONTINUOUS[2] MEDSPRN[3] OBJECTIVE Vitals: 05/02/25 [id number] 05/03/25 0335 05/03/25 0827 05/03/25 1212 BP: 134/88 (!) 144/101 120/78 127/82 BP Location: Patient Position: Pulse: 87 82 89 107 Resp: 18 18 22 18 Temp: 36.7 ??C (98.1 ??F) 36.4 ??C (97.5 ??F) 36.6 ??C (97.8 ??F) 36.6 ??C (97.8 ??F) TempSrc: SpO2: 93% 98% 96% 92% Weight: Height: Physical Exam Constitutional: Appearance: Normal appearance. HENT: Head: Normocephalic and atraumatic. Mouth/Throat: Mouth: Mucous membranes are moist. Pharynx: Oropharyngeal exudate and posterior oropharyngeal erythema present. Eyes: Extraocular Movements: Extraocular movements intact. Conjunctiva/sclera: Conjunctivae normal. Pupils: Pupils are equal, round, and reactive to light. Cardiovascular: Rate and Rhythm: Normal rate and regular rhythm. Pulmonary: Effort: Tachypnea and accessory muscle usage present. Breath sounds: Normal breath sounds. Decreased air movement present. No wheezing, rhonchi or rales. Abdominal: General: Bowel sounds are normal. There is no distension. Palpations: Abdomen is soft. There is no mass. Tenderness: There is no abdominal tenderness. There is no rebound. Musculoskeletal: General: Normal range of motion. Cervical back: Normal range of motion. Comments: Right foot self-inflicted transmetatarsal amp Skin: General: Skin is warm. Neurological: General: No focal deficit present. Mental Status: He is alert and oriented to person, place, and time. Psychiatric: Mood and Affect: Mood normal. Behavior: Behavior normal. LABS HEMATOLOGY Lab Results Component Value Date WBC 13.9 (H) 05/03/2025 HGB 12.9 (L) 05/03/2025 HCT 39.8 (L) 05/03/2025 MCV 90.2 05/03/2025 PLT 175 05/03/2025 CHEMISTRY Lab Results Component Value Date GLUCOSE 177 (H) 05/03/2025 NA 139 05/03/2025 K 5.1 05/03/2025 CO2 29 05/03/2025 CL 104 05/03/2025 BUN 19 05/03/2025 CREATININE 1.03 05/03/2025 EGFR 77 05/03/2025 CALCIUM 9.1 05/03/2025 MG 1.9 05/02/2025 ANIONGAP 6 05/03/2025 Imaging: XR Chest 2 Views Narrative: XR CHEST 2 VIEWS INDICATION: Dyspnea TECHNIQUE: XR CHEST 2 VIEWS COMPARISON: 04/21/2025 Impression: FINDINGS/IMPRESSION: Stable findings of emphysema with hyperinflation suggesting chronic obstructive pulmonary disease. Basilar predominant scarring is unchanged. Surgical changes throughout the upper lungs are stable compared to prior. No new pneumonia, pleural effusion, or pneumothorax. Cardiac silhouette is stably enlarged. Bones are unchanged. -------- FINAL REPORT -------- Dictated By: SUDEEP CAMPOS Dictated Date: 05/02/2025 10:41 ET Assigned Physician: SUDEEP CAMPOS Reviewed and Electronically Signed By: SUDEEP CAMPOS Signed Date: 05/02/2025 10:45 ET Workstation ID: [id number] Transcribed By: Self Edit Transcribed Date: 05/02/2025 10:41 ET ASSESSMENT & PLAN 74-year-old male past medical history significant for chronic respiratory failure with hypoxia on 3-6 L O2 via NC and nocturnal BiPAP, COPD, pulmonary nodules, chronic atrial fibrillation on eliquis,hypertension, hyperlipidemia, history of PE, anxiety, who presents with complaints of shortness of breath and chest pain. COPD exacerbation Patient with severe emphysema at baseline. He underwent bilateral blebectomy of the lower lobes in the . He is dependent on high liter flow oxygen, NIPPV and chronic steroids due to the severityof his underlying lung disease. Patient recently treated for COVID-19 pneumonia and exacerbation just discharged on 04/25. Chest x-ray without new pathology. - Continue DuoNeb QID, Albuterol prn, IS, IV SoluMedrol - Respiratory viral panel still showing positivity for COVID-19 - Liberalize NIPPV support, continue telemetry monitoring due to this. Chronic hypoxic respiratory failure - Chronically maintained on 3 L supplemental O2 at rest and 6 L with exertion via nasal cannula andnocturnal BiPAP Dysphagia, sensation of globus Oral candidiasis - DECATING MACHINE OPERATOR consultation recommends IDDSI Level 7 Easy to Chew - Patient with evidence of oral candidiasis from chronic steroid use given recent changes in swallowing and sensation of food getting stuck in the esophagus I question if patient may have esophageal candidiasis. Recommend Diflucan 400 mg IV x 1 followed by Diflucan 200 mg IV daily. History of pulmonary embolism - Continue chronic Eliquis Chronic atrial fibrillation with RVR Secondary hypercoagulable state - Continue chronic diltiazem. Suspect resting heart rates are likely chronically elevated given underlying pulmonary disease. Continue telemetry monitoring - Continue chronic Eliquis Primary hypertension - Continue diltiazem as prescribed Mixed hyperlipidemia - Continue chronic statin Anxiety - Continue as needed alprazolam Advance directives Discussed DNR/DNI with the patient who deferred to his daughter who is healthcare proxy Brittany. Patient was clear though that he did not wish prolonged life support/intubation. Second visit of the day met with Brittany at bedside. Updated on clinical course and plan. Asked about MOLST, this has never been completed. Daughter reports she will talk with her father. DAILY CARE CHECKLIST Length of Stay: VTE Prophylaxis: Covered with apixaban Resuscitation: Full Code - Confirmed PCP: Karen Parsons NP Disposition/patient need hospital stay because : Acutely ill Health care proxy with phone number : Case discussed with Dr. Khan [1] [Held by provider] apixaban, 5 mg, oral, BID atorvastatin, 20 mg, oral, Daily azithromycin, 500 mg, oral, Once per day on Thursday cefTRIAXone, 1 g, intravenous, q24h cholecalciferol, 2,000 Units, oral, Daily dilTIAZem CD, 240 mg, oral, Daily [START ON 05/04/2025] fluconazole, 200 mg, intravenous, q24h ipratropium-albuteroL, 3 mL, nebulization, 4x daily methylPREDNISolone sod suc, 60 mg, intravenous, q6h HOSEA montelukast, 10 mg, oral, Nightly [Held by provider] predniSONE, 10 mg, oral, Daily [Held by provider] revefenacin, 175 mcg, nebulization, Daily roflumilast, 500 mcg, oral, Daily [2] [3] PRN medications: acetaminophen, albuterol, ALPRAZolam, ondansetron (ZOFRAN- ODT) disintegrating tablet OR ondansetron Cosigned by Marcell Botello MD at 05/03/2025 11:31 PM EDT Associated attestation - Marcell Botello MD - 05/03/2025 11:31 PM EDT This is a split/shared visit with [facility]. I personally performed the medical decision making (MDM) for the care of this patient on 05/03/25 as documented below I have personally seen and examined the patient with the resident/PA/RED LEADER and vogt elements of all parts of the encounter were performed by me. Patient was reassessed on more than one occasion when required. I reviewed the interval history, interpreted all available radiographic, laboratory and physiological data at the time of service. I agree with the assessment and plan as documented by the resident/PA/RED LEADER with additions. Will continue management of COPD exacerbation, will continue NIPPV, continue IV steroids. Patient has evidence of thrush, started on fluconazole for question of possible esophageal candidiasis, continue current treatment. Austin Khan MD 05/03/25 11:29 PM EDT * [facility] - 05/03/2025 5:47 AM EDT CC notified that earlier in the day yesterday the pt had some blood seen in his stool therefore stool occult was obtained which came back positive. The stool was formed, brown, no blood seen this time. Pt with history of internal hemorrhoids. He denies abdominal pain, but does have some tenderness in mid upper abdomen and left side. - CBC was drawn to monitor hgb which resulted in hgb of 12.9 which was decreased from 14.1 yesterday. - Pt had another bowel movement after the stool sample was obtained which he stated had no blood init - On exam, I was able to visualize an internal hemorrhoid although it was unclear if there was any bleeding from it - Will repeat H&H in 6 hours at 0900 - Flor on hold for now * Odalys Ramsay, DECATING MACHINE OPERATOR - 05/02/2025 1:00 PM EDT Images from the original note were not included. Speech Language Pathology [facility] DECATING MACHINE OPERATOR BEDSIDE SWALLOW EVALUATION NAME: Mervin Christian DATE OF : 1950 ROOM: [address] [place] [address] RECOMMENDATIONS Recommendations: Dysphagia treatment Diet Solids Recommendation: IDDSI Level 7 Easy to Chew Diet Liquids Recommendation: Thin liquids Liquid Administration Via: Cup, Straw Compensatory Swallowing Strategies: Upright as possible for all oral intake, Remain upright for 20-30 minutes after meals, Alternate solids and liquids, Small bites/sips, Eat/feed slowly Recommended Medication Route: PO DECATING MACHINE OPERATOR ASSESSMENT: DECATING MACHINE OPERATOR Assessment Results: Swallowing impairments Dysphagia Diagnosis: (Concerns for oropharyngeal dysphagia.) Evaluation/Treatment Tolerance: Patient tolerated treatment well Comments: Pt presents with concerns for oropharyngeal dysphagia at bedside secondary to acuity of illness. Mastication of solids timely and complete. Pt denied globus sensation and odynophagia. x1 instance of wet vocal quality with puree - cleared with prompted cough - and intermittent throat clearing with hard solids noted. Given above, rec IDDSI 7/0 easy to chew/thins. Will f/u 1-2 to monitor diet tolerance and promote use of strategies. Medical Staff Made Aware: Yes Comments: RN and MD Pt ID by: Self, Full Name and Management Intern Required: No TIME IN: 1300 TIME OUT: 1330 TOTAL TIME: 30 min SUBJECTIVE: Chart reviewed and patient cleared by RN for swallow evaluation. RN reported pt tolerated thins, and RN present for administration of med pass Pt seen upright at bedside, alert and participatory throughout session. He is on 3L NC - baseline. Daughter present. Pt +COVID. Patient goal stated: To eat food PRIOR LEVEL OF FUNCTIONING: Pt reportedly tolerated a regular diet/thins at baseline with no history of swallowing difficulty. He endorsed difficulty swallowing hard solids reportedly d/t dry mouth recently, but could not specify date of onset of symptoms. Pt recently hospitalized at [facility] on 04/21-04/25/2025 for acute on chronic hypoxic respiratory failure with COVID-19 pneumonia and COPD exacerbation. SWALLOW SCREEN: Principal Problem: COPD (chronic obstructive pulmonary disease) ([facility] V24, [facility] V28) Date Noted: 05/02/2025 Resolved Problems: * No resolved hospital problems. * COPD (chronic obstructive pulmonary disease) ([facility] V24, [facility] V28) [J44.9] COPD exacerbation ([facility] V24, [facility] V28) [J44.1] No admission procedures for hospital encounter. Past Medical History Past Surgical History Medical History[1] Surgical History[2] IMAGING RESULTS MRI Brain No results found for this or any previous visit. CT Head Results for orders placed during the hospital encounter of 04/21/25 CT Head wo Contrast Narrative EXAMINATION: CT HEAD WITHOUT CONTRAST CLINICAL INFORMATION: Weakness. Shortness of breath. Moderate distress. COMPARISON: Portions of previous CT 11/26/14. TECHNIQUE: Multidetector CT. Examination of the head. Examination of the head without IV contrast. Reformatting in the coronal and sagittal planes. DLP: 1070 mGy-cm Dose optimization was performed including the use of low-dose iterative reconstruction technique with automatic exposure control based on patient size. Type of contrast: None Volume of IV contrast: None Volume of contrast discarded: 0 mL FINDINGS: Intracranial hemorrhage: No evidence of recent intracranial hemorrhage. Ventricles, cisterns and sulci: There is no midline shift. The ventricle cisterns and sulci appear within normal limits. Extra-axial mass or collections: No extra-axial mass or collection Intra-axial mass: No mass demonstrated Acute infarct: No acute territorial infarct demonstrated. White matter disease: No significant white matter disease demonstrated. San-white interface: No disruption of the san-white interface. Paranasal sinuses: The visualized paranasal sinuses are well pneumatized and aerated. There is opacification of some of the mastoid air cells on each side. This was not present on 11/26/14. Osseous/Scalp: No focal bony lesion. Prior right lens extraction. Impression No intracranial hemorrhage. No mass. No suspicious focal area of abnormal brain attenuation. Nonspecific opacification of some of the mastoid air cells. -------- FINAL REPORT -------- Dictated By: José Miguel Waters Dictated Date: 04/21/2025 10:22 ET Assigned Physician: José Miguel Waters Reviewed and Electronically Signed By: José Miguel Waters Signed Date: 04/21/2025 10:27 ET Workstation ID: [id number] Transcribed By: Self Edit Transcribed Date: 04/21/2025 10:22 ET Chest Portable Results for orders placed during the hospital encounter of 04/21/25 XR Chest 1 View Narrative EXAMINATION: CHEST CLINICAL INFORMATION: COPD. Shortness of breath COMPARISON: Frontal view 04/05/25 TECHNIQUE: Portable frontal sitting view of the chest FINDINGS: There is moderate rotation to the right. The mediastinal margins and andrew are partially obscured. No suspicious interval changes. Extensive metallic sutures in the upper chest bilaterally. There is high density with a linear configuration in the periphery of the right lower chest. This could be related to calcification. There is diffuse reticular opacities throughout the remainder of both lungs with relative sparing of the right upper lung. There is biapical thickening. No convincing pneumothorax. Limited bone detail Impression Severe lung disease. Extensive prior surgery. Linear possibly calcified density in the periphery ofthe right lower chest. Correlate with any history of pleurodesis or asbestos exposure. No definite pneumothorax or acute focal pneumonia. -------- FINAL REPORT -------- Dictated By: José Miguel Waters Dictated Date: 04/21/2025 08:50 ET Assigned Physician: José Miguel Waters Reviewed and Electronically Signed By: José Miguel Waters Signed Date: 04/21/2025 08:52 ET Workstation ID: [id number] Transcribed By: Self Edit Transcribed Date: 04/21/2025 08:50 ET Chest 2 View Results for orders placed during the hospital encounter of 05/02/25 XR Chest 2 Views Narrative XR CHEST 2 VIEWS INDICATION: Dyspnea TECHNIQUE: XR CHEST 2 VIEWS COMPARISON: 04/21/2025 Impression FINDINGS/IMPRESSION: Stable findings of emphysema with hyperinflation suggesting chronic obstructive pulmonary disease. Basilar predominant scarring is unchanged. Surgical changes throughout the upper lungs are stable compared to prior. No new pneumonia, pleural effusion, or pneumothorax. Cardiac silhouette is stably enlarged. Bones are unchanged. -------- FINAL REPORT -------- Dictated By: SUDEEP CAMPOS Dictated Date: 05/02/2025 10:41 ET Assigned Physician: SUDEEP CAMPOS Reviewed and Electronically Signed By: SUDEEP CAMPOS Signed Date: 05/02/2025 10:45 ET Workstation ID: [id number] Transcribed By: Self Edit Transcribed Date: 05/02/2025 10:[address] Results for orders placed during the hospital encounter of 04/21/25 CT Angio Chest wo and/or w Contrast Interpretation Summary EXAMINATION: CTA CHEST WITH CONTRAST CLINICAL INFORMATION: Chest pain. Shortness of breath COMPARISON: Portions of CT performed without contrast 11/23/24 TECHNIQUE: CT angiography using pulmonary embolus timing Multidetector CT. Examination of the chest. Examination of the chest following the IV administration of nonionic contrast. Reformatting in the coronal and sagittal planes. DLP: 682 mGy-cm Dose optimization was performed including the use of low-dose iterative reconstruction technique with automatic exposure control based on patient size. Type of contrast: ISOVUE 370 Volume of IV contrast: 90 mL Volume of contrast discarded: 0 mL FINDINGS: QUALITY: Good PULMONARY ARTERIES: No pulmonary embolus demonstrated LUNG: The trachea and mainstem bronchi are patent. There are metallic sutures from prior resection. Severe underlying emphysema. There are reticular opacities in the dependent lower lung zones with stacked lucencies possibly early honeycomb formation. There is linear calcified abnormality in the periphery of the right lower chest and there is pleural calcification posteromedially in the right. No acute focal pneumonia. When compared to 11/23/24 small peripheral nodules laterally in the left lower lung are unchanged (3/178) MEDIASTINUM: No change in the lymph nodes around the right hilum and right upper lobe airways. No change in lymph nodes in the right paratracheal region. CARDIAC: The heart is not enlarged. No pericardial fluid or thickening There is no CT evidence of elevated right heart pressures. CORONARY CALCIFICATION: Moderate coronary calcification VASCULAR: There is no thoracic aortic aneurysm. The main pulmonary artery is normal caliber PLEURAL: There is no pleural fluid or pneumothorax. There is pleural or extrapleural thickening andthere is right-sided pleural calcification. AXILLA/CHEST WALL: There are no enlarged axillary lymph nodes. No chest wall mass demonstrated MUSCULOSKELETAL: No focal bony lesion. Atrophy of the left infraspinatus. VISUALIZED UPPER ABDOMEN: No suspicious abnormality on limited assessment of the visualized upper abdomen There is no reflux of contrast into the IVC or hepatic veins. Impression No pulmonary embolus demonstrated. No evidence of aortic dissection. There is coronary calcification. Severe underlying lung disease with evidence of prior surgery. Pleural calcifications. -------- FINAL REPORT -------- Dictated By: José Miguel Waters Dictated Date: 04/21/2025 10:11 ET Assigned Physician: José Miguel Waters Reviewed and Electronically Signed By: José Miguel Waters Signed Date: 04/21/2025 10:22 ET Workstation ID: [id number] Transcribed By: Self Edit Transcribed Date: 04/21/2025 10:11 ET ALLERGIES: Allergies[3] OBJECTIVE OXYGEN THERAPY: Oxygen Therapy: Supplemental oxygen O2 Delivery Method: Nasal cannula O2 Flow Rate (L/min): 3 L/min PAIN ASSESSMENT: TRACHEOSTOMY: DYSPHAGIA SYMPTOMS REPORTED: Difficulty swallowing food FEEDING METHOD: Independent ENDURANCE DURING MEALS: To Be Assessed MENTAL STATUS: Alert Responsive Cooperative SWALLOW BASELINE ASSESSMENT: Respiratory Status: Oxygen via nasal cannula History of Intubation: No Behavior/Cognition: Alert, Cooperative, Pleasant mood Dentition: Some missing teeth Patient Positioning: Upright in bed Baseline Vocal Quality: Within Functional Limits Volitional Cough: Strong Volitional Swallow: Within Functional Limits Baseline Comments: Pt reportedly tolerated a regular diet/thins at baseline with no history of swallowing difficulty. Endorsed occasional swallowing difficulty with solids recently - reportedly d/t dry mouth. CURRENT DIET: Dietary Orders (From admission, onward) Start Ordered 05/02/25 1340 Adult diet [facility]; General, Modified Consistency Options for Liquids and Solids; Regular; IDDSI Level 7 Easy to Chew Diet effective now Question Answer Comment Location [facility] Diet Type (req) General Diet Type (req) Modified Consistency Options for Liquids and Solids General Diet Regular Modified Consistency Options for Liquids and Solids IDDSI Level 7 Easy to Chew 05/02/25 1340 MOTOR SPEECH: Labial ROM: Within Functional Limits Labial Symmetry: Within Functional Limits Labial Strength: Within Functional Limits Lingual Appearance: White coating, Dry Lingual ROM: Within Functional Limits Lingual Symmetry: Within Functional Limits Lingual Strength: Reduced Facial ROM: Within Functional Limits Facial Symmetry: Within Functional Limits Facial Strength: Within Functional Limits Velum: Within Functional Limits Mandible: Within Functional Limits Vocal Quality: Within Functional Limits Intelligibility: Intelligible 100% CONSISTENCIES ASSESSED Yes Other (Comment): x1 PO med with thin liquid wash completed. Pt denied globus sensation and odynophagia. NO overt s/s of aspiration. Thin Presentation: Cup, Self Fed Oral: Within functional limits Pharyngeal: Within Functional Limits Amount: 4 oz Puree Presentation: Self Fed, Spoon Oral: Within functional limits Pharyngeal: Within Functional Limits, Wet vocal quality Amount: 6 spoonfuls Comments: x1 instance of wet vocal quality - cleared with prompted cough. Chopped/Soft & Bite Sized/ Mechanical Soft Presentation: Self Fed, Spoon Oral: Within functional limits Pharyngeal: Within Functional Limits Amount: 1 piece of sylvia cracker dipped in applesauce Solid/Regular Presentation: Bite, Self Fed Oral: Within functional limits Pharyngeal: Throat clearing - immediate Amount: 2 sylvia crackers Comments: Intermittent throat clearing x3 with hard solids. COGNITION: Overall Cognitive Status: Within Functional Limits Arousal/Alertness: Appropriate responses to stimuli Orientation Level: Oriented X4 Following Commands: Follows one step commands without difficulty DECATING MACHINE OPERATOR ASSESSMENT: DECATING MACHINE OPERATOR Assessment Results: Swallowing impairments Dysphagia Diagnosis: (Concerns for oropharyngeal dysphagia.) Evaluation/Treatment Tolerance: Patient tolerated treatment well Comments: Pt presents with concerns for oropharyngeal dysphagia at bedside secondary to acuity of illness. Mastication of solids timely and complete. Pt denied globus sensation and odynophagia. x1 instance of wet vocal quality with puree - cleared with prompted cough - and intermittent throat clearing with hard solids noted. Given above, rec IDDSI 7/0 easy to chew/thins. Will f/u 1-2 to monitor diet tolerance and promote use of strategies. Medical Staff Made Aware: Yes Comments: RN and MD PLAN OF CARE DECATING MACHINE OPERATOR PLAN Treatment/Interventions: Swallow function DECATING MACHINE OPERATOR Plan: Skilled DECATING MACHINE OPERATOR DECATING MACHINE OPERATOR Frequency: Follow-up visit only DECATING MACHINE OPERATOR - Evaluation Status: Complete Diet Recommendations: IDDSI 7/0 easy to chew/thins DISCHARGE RECOMMENDATIONS Ongoing Skilled Speech-Language Pathology (DECATING MACHINE OPERATOR) services at next level of care. EDUCATION Education Documentation Modified Diet Training, taught by JACQUE Bonds at 05/02/2025 3:58 PM. Learner: Family, Patient Readiness: Acceptance Method: Explanation, Demonstration Response: Verbalizes Understanding, Needs Reinforcement Education Comments No comments found. GOALS Encounter Problems Encounter Problems (Active) Template: Speech Therapy Problem: Swallowing Dates: Start: 05/02/25 Goal: Patient will tolerate the least restrictive diet consistency to allow for safe consumption ofdaily meals Dates: Start: 05/02/25 Expected End: 05/09/25 Goal: Patient will tolerate recommended food and liquid consistencies without clinical signs and symptoms of aspirations Dates: Start: 05/02/25 Expected End: 05/09/25 Goal: Patient will follow recommended swallowing strategies Dates: Start: 05/02/25 Expected End: 05/09/25 Encounter Problems (Resolved) There are no resolved problems. JACQUE Bonds 05/02/2025 [1] Past Medical History: Diagnosis Date Atrial fibrillation (CMS/HCC V24, CMS/HCC V28) DX:Atrial fibrillation (HCC) Chronic hypoxic respiratory failure (CMS/HCC V24, CMS/HCC V28) NOCTURNAL BIPAP COPD (chronic obstructive pulmonary disease) (CMS/HCC V24, CMS/HCC V28) DX:COPD (chronic obstructive pulmonary disease) (HCC) Generalized anxiety disorder DX:Generalized anxiety disorder Hypertension Mixed hyperlipidemia DX:Mixed hyperlipidemia Pulmonary embolism (CMS/HCC V24, CMS/HCC V28) Pulmonary nodules DX:Pulmonary nodules [2] Past Surgical History: Procedure Laterality Date FOOT SURGERY Right PROCEDURE: [place] UNLISTED PROCEDURE FOOT/TOES [3] No Known Allergies Cosigned by SERENA Blank at 05/02/2025 8:27 PM EDT Associated attestation - Jacque Wahl CCC-SLP - 05/02/2025 8:27 PM EDT I attest that I, Delmy Wahl M.S.,SERENA, was physically involved in the ongoing assessment, decision making, and interventions provided during today's patient care session. I have reviewed all documentation for today's 05/02/25, entered by Speech Therapy Fellow, Odalys Ramsay, and further attest that it is an accurate clinical record of today's encounter, including accurate and appropriate charges. * Sunita Jarvis RN - 05/02/2025 11:17 AM EDT ED RN HANDOFF (All Giordano Below Must Be Completed) Reason/Diagnosis for Admission: COPD exacerbation Type of Admission: [x] Medsurg, [] Telemetry Already in a Hospital Bed: [] Yes / [x] No Room Considerations/Precautions (ex: fever, diarrhea, or any infectious concerns): [x] Yes / [] No Press Operator Meat: [] Yes / [x] No If YES, Cardiac Rhythm: [] NSR, [] SB, [] ST, [] A-FIB, [] A-Flutter, [] Pacemaker, [] 1st Degree HB, [] 2nd Degree HB, [] 3rd Degree HB Reason for Press Operator Meat: VS: Visit Vitals BP 115/79 (BP Location: Left arm, Patient Position: Lying) Pulse 101 Temp 36.9 ??C (98.4 ??F) (Oral) Resp 20 Ht 1.727 m (68 ) Wt 89.8 kg (198 lb) SpO2 99% BMI 30.11 kg/m?? Smoking Status Former BSA 2.03 m?? Current Mental Status: A/O x [x]4, []3, []2, []1 Current Ambulation Status: Unable to assess IV Access: [x] Yes / [] No Field IV present: [x] Yes / [] No Hx of Violence: [] Yes / [x] No / [] Unknown Fall Risk:[x] Yes / [] No Yellow Bracelet Applied [x] Yes / [] No Yellow Socks Applied [] Yes / [x] No Patient Belongings inventoried and BL completed: [x] Yes / [] No Patient belongings stored in the security closet: [] Yes (If Yes please supply Security bag #): [x] No Patient Medications stored in Pharmacy: [] Yes (If Yes please supply Medication Security bag #): [x] No ED Summary of Care: Patient comes in for SOB since yesterday, denies using rescue inhaler, CPAP useat night, increased work of breathing. COPD exacerbation. He is also endorsing 9/10 chest discomfort with breathing and coughing. Submitted by and Phone Extension: DEIDRE Dorsey [phone] * Sunita Jarvis RN - 05/02/2025 7:22 AM EDT Patient comes in from home via EMS for shortness of breath since 7pm yesterday. Patient reports tossing and turning all night. Denies taking rescue inhaler. Uses CPAP to sleep.Increasing work of breathing per EMS.+wheezing bilaterally, Duoneb given en route Hx CHF, afib RVR, COPD, +eliquis. Patient also endorsing chest pain /10 for EMS, 324 aspirin givenen route. * Dano Gaspar MD - 05/02/2025 7:16 AM EDT Images from the original note were not included. [facility] EMERGENCY EMERGENCY DEPARTMENT ENCOUNTER Patient: Mervin Christian MR# [id number] Time of Service: 05/02/2025 7:20 AM History PCP: Karen Parsons NP. Chief Complaint Patient presents with ??? Shortness of Breath Since yesterday night Mervin Christian is a 74 y.o. male with a history of atrial fibrillation on Eliquis, CHF, COPD on 3 L home O2 and recent admission for COVID who presents to the ED with chief complaint Shortness of Breath (Since yesterday night ) . It started at 7:30 PM. States it is hard to take a deep breath and he was having central chest pain. Symptoms trouble swallowing this morning as well. He states he was short of breath after discharge but became acutely worse last night. EMS gave him a DuoNeb and aspirin and route. He was also given fentanyl per verbal report. ROS Negative except for HPI. Allergies: Patient has no known allergies. Medical History[1] Problem List[2] Surgical History[3] Family History[4] Social History[5] Physical Exam Vitals: 05/02/25 0735 05/02/25 0737 05/02/25 0949 BP: 133/86 115/79 BP Location: Left arm Left arm Patient Position: Lying Pulse: 97 101 Resp: 22 20 Temp: 36.9 ??C (98.4 ??F) 36.9 ??C (98.4 ??F) TempSrc: Oral Oral SpO2: 94% 99% Weight: 89.8 kg (198 lb) Height: 1.727 m (68 ) General Appearance: Mild respiratory distress, sleepy but easily arousable Skin: Dry Eyes: EOMI, no scleral icterus HENT: Normocephalic, atraumatic, dry mucous membranes Neck: Supple, normal range of motion Cardiovascular: Irregularly irregular, no murmurs gallops or rubs respiratory: Mild respiratory distress, decreased breath sounds on the right side relative to the left. Expiratory wheeze throughout abdomen: Soft, non- tender, non-distended MSK: Mild bilateral pretibial edema or tenderness Neurologic: Sleepy but easily arousable, alert, no obvious deficits, moving all extremities Psychiatric: Appropriate, cooperative EKG/Rhythm Strip: A-fib with a right bundle branch block and a rate of 80. No acute ischemia noted.No significant change from EKG from 04/21/2025 Results Results for orders placed or performed during the hospital encounter of 05/02/25 ECG 12 lead Collection Time: 05/02/25 7:46 AM Result Value Ref Range Ventricular Rate ECG 80 BPM Atrial Rate 80 BPM P-R Interval 276 ms QRS Duration 146 ms Q-T Interval 382 ms QTc 440 ms R [place] 57 degrees T [place] -37 degrees ECG Interpretation Sinus rhythm with marked sinus arrhythmia with 1st degree A-V block Right bundle branch block T wave abnormality, consider inferior ischemia Abnormal ECG When compared with ECG of 21-APR-2025 09:33, Sinus rhythm has replaced Atrial fibrillation Troponin I high sensitivity Collection Time: 05/02/25 7:55 AM Result Value Ref Range High Sensitivity Troponin I 14 <=79 ng/L Comprehensive metabolic panel Collection Time: 05/02/25 7:55 AM Result Value Ref Range Sodium 142 133 - 145 mmol/L Potassium 3.2 (L) 3.5 - 5.5 mmol/L Chloride 104 96 - 110 mmol/L CO2 31 21 - 32 mmol/L Anion Gap 7 3 - 11 Glucose 94 70 - 100 mg/dL BUN 17 5 - 25 mg/dL Creatinine 0.99 0.70 - 1.30 mg/dL eGFR 80 >=60 mL/min/1.73m2 BUN/Creatinine Ratio 17.2 Calcium 9.0 8.5 - 10.5 mg/dL AST (SGOT) 19 10 - 42 unit/L ALT (SGPT) 54 10 - 60 unit/L Alkaline Phosphatase 86 42 - 121 unit/L Total Protein 5.8 (L) 6.0 - 8.0 g/dL Albumin 2.8 (L) 3.2 - 5.0 g/dL Total Bilirubin 1.0 0.0 - 1.4 mg/dL Lipase Collection Time: 05/02/25 7:55 AM Result Value Ref Range Lipase 23 13 - 75 unit/L Magnesium Collection Time: 05/02/25 7:55 AM Result Value Ref Range Magnesium 1.9 1.9 - 2.6 mg/dL B-type natriuretic peptide Collection Time: 05/02/25 7:55 AM Result Value Ref Range BNP 73 <=100 pcg/mL CBC auto differential Collection Time: 05/02/25 7:55 AM Result Value Ref Range WBC 16.4 (H) 4.8 - 10.8 K/mcL RBC 4.70 4.50 - 5.50 M/mcL Hemoglobin 14.1 13.5 - 17.5 g/dL Hematocrit 44.0 42.0 - 54.0 % MCV 92.8 79.0 - 98.0 FL MCH 29.7 27.0 - 32.0 pcg MCHC 32.0 32.0 - 37.0 g/dL RDW 16.8 (H) 11.0 - 15.0 % Platelets 189 130 - 400 K/mcL MPV 9.8 7.0 - 11.0 FL NRBC 0.0 <1.0 % NRBC Absolute 0.00 <0.10 K/mcL Manual differential Collection Time: 05/02/25 7:55 AM Result Value Ref Range Neutrophils % 85.0 % Lymphocytes % 9.0 % Monocytes % 3.0 % Eosinophils % 2.0 % Basophils % 0.0 % Metamyelocytes % 2.0 (H) % Myelocytes % 1.0 (H) % Neutrophils Absolute Manual 13.94 (H) 1.50 - 7.00 K/mcL Lymphocytes Absolute 1.48 1.00 - 5.00 K/mcL Monocytes Absolute Manual 0.49 0.20 - 1.00 K/mcL Eosinophils Absolute Manual 0.33 0.00 - 0.50 K/mcL Basophils Absolute Manual 0.00 0.00 - 0.20 K/mcL Metamyelocytes Absolute Manual 0.33 (H) 0.00 - 0.00 K/mcL Myelocytes Absolute Manual 0.16 (H) 0.00 - 0.00 K/mcL Rbc Morphology Consistent with indices Consistent with indices, Normal for [place] Platelet Morphology - WAM See Note (A) Normal Troponin I high sensitivity Collection Time: 05/02/25 9:33 AM Result Value Ref Range High Sensitivity Troponin I 13 <=79 ng/L Venous blood gas Collection Time: 05/02/25 9:33 AM Result Value Ref Range pH, [place] 7.40 7.32 - 7.42 pH pCO2, [place] 59 (H) 41 - 51 mmHg pO2, [place] 28 25 - 40 mmHg HCO3, Venous 30.5 (H) 22.0 - 26.0 mmol/L O2 Sat, [place] 37.5 % Base Excess, [place] 9.4 (H) -2.0 - 2.0 mmol/L XR Chest 2 Views Final Result FINDINGS/IMPRESSION: Stable findings of emphysema with hyperinflation suggesting chronic obstructive pulmonary disease. Basilar predominant scarring is unchanged. Surgical changes throughout the upper lungs are stable compared to prior. No new pneumonia, pleural effusion, or pneumothorax. Cardiac silhouette is stably enlarged. Bones are unchanged. -------- FINAL REPORT -------- Dictated By: SUDEEP CAMPOS Dictated Date: 05/02/2025 10:41 ET Assigned Physician: SUDEEP CAMPOS Reviewed and Electronically Signed By: SUDEEP CAMPOS Signed Date: 05/02/2025 10:45 ET Workstation ID: [id number] Transcribed By: Self Edit Transcribed Date: 05/02/2025 10:41 ET Procedures Medical Decision Making 74-year-old male with a history of COPD, CHF and recent COVID infection who presents with chest pain and trouble breathing. He was wheezy and responded well to bronchodilators and steroids although remains dyspneic after treatment and will need admission for further treatment and monitoring. And serial troponins were unremarkable and EKG showed no acute changes so I do not think this represents ACS or CHF. Chest x-ray does show signs of chronic pulmonary disease but no acute findings. He is not febrile. He does have a leukocytosis but recently has been on steroids so I do not think he needs treatment for pneumonia at this time. Labs and imaging ordered in ED independently reviewed by me. My interpretation of the labs and/or imaging per ED course. Medications Administered Medications methylPREDNISolone sodium succ (SOLU-Medrol) injection 125 mg (125 mg intravenous Given 05/02/25 0841) ipratropium-albuteroL (DUONEB) 0.5-2.5 mg/3 mL nebulizer solution 3 mL (3 mL nebulization Given 05/02/25 0908) ED Course as of 05/02/25 1104 Tue May 02, 2025 1004 Auto WBC(!): 16.4 Feeling much better 2 more DuoNeb treatments (1 was given by EMS) and a dose of methylprednisolone.His breath sounds are improved with no wheeze. He continues to have decreased breath sounds on the right. 1 view chest will be changed to a two-view chest. Patient and daughter updated [WG] 1056 Continues to be short of breath although continues to improve. At this point will admit for acute COPD exacerbation x-ray shows no signs of pneumonia [WG] ED Course User Index [WG] Dano Gaspar MD Clinical Impressions as of 05/02/25 1104 COPD exacerbation ([facility] V24, [facility] V28) [facility] chart review: Admitted 04/21 to 04/25 with acute on chronic respiratory failure partially contributed by COVID-[address] of the chest which showed no PE but showed severe underlying lung disease. He was treated with remdesivir Decadron and azithromycin. it is noted that he does have a history of A-fib with RVR and he had an episode of RVR while in the hospital. Prescription management: In addition to any applicable prescriptions, the patient was counseled by me regarding [id number] medications that can be used at home. New Prescriptions No medications on file Disposition: Admit CLINICAL IMPRESSION: No diagnosis found. 05/02/2025 MD Dano Arguello MD 05/02/25907 [1] Past Medical History: Diagnosis Date ??? Atrial fibrillation (CMS/HCC V24, CMS/[facility] V28) DX:Atrial fibrillation (HCC) ??? COPD (chronic obstructive pulmonary disease) (CMS/HCC V24, CMS/HCC V28) DX:COPD (chronic obstructive pulmonary disease) (HCC) ??? Generalized anxiety disorder DX:Generalized anxiety disorder ??? Mixed hyperlipidemia DX:Mixed hyperlipidemia ??? Pulmonary nodules DX:Pulmonary nodules [2] Patient Active Problem List Diagnosis ??? Anxiety ??? Hypercholesterolemia ??? Pulmonary nodules ??? Multiple subsegmental pulmonary emboli without acute cor pulmonale (CMS/HCC V24, CMS/HCC V28) ??? Paroxysmal atrial fibrillation (CMS/HCC V24, CMS/HCC V28) ??? Pulmonary emphysema (CMS/HCC V24, CMS/HCC V28) ??? Renal mass, left ??? Type 2 diabetes mellitus without complication, without long-term current use of insulin (CMS/HCC V24, CMS/HCC V28) ??? Acute on chronic respiratory failure with hypoxia and hypercapnia (CMS/HCC V24, CMS/HCC V28) ??? Acute hypoxemic respiratory failure (CMS/HCC V24, CMS/HCC V28) [3] Past Surgical History: Procedure Laterality Date ??? FOOT SURGERY Right PROCEDURE: [place] UNLISTED PROCEDURE FOOT/TOES [4] Family History Problem Relation Name Age of Onset ??? Ulcers Father ??? Diabetes Mother kidney failure ??? Breast cancer Mother ??? No Known Problems Daughter ??? No Known Problems Son ??? Other (Other: Other) Brother x2 one from cancer unsure olf type, other from intestinal. issues ??? Heart attack Sister [5] Social History Tobacco Use ??? Smoking status: Former Current packs/day: 0.00 Types: Cigarettes Quit date: 07/20/1999 Years since quittin.8 ??? Smokeless tobacco: Never Substance Use Topics ??? Alcohol use: Yes Alcohol/week: 3.0 standard drinks of alcohol ??? Drug use: Never Dano Gaspar MD 05/02/25 1104 Dano Gaspar MD 05/02/25 1559 documented in this encounter H&P Notes * LUH Muller - 05/02/2025 11:05 AM EDT Images from the original note were not included. [facility] HISTORY AND PHYSICAL Please contact author [LUH Muller] via [employer]. Patient: Mervin Christian Admission Date/Time: 05/02/2025 7:20 AM : 1950 [74 y.o.] Patient's PCP: Karen Parsons NP Attending Provider: Dano Gaspar MD;Ner* CHIEF COMPLAINT Shortness of breath HISTORY OF PRESENT ILLNESS This is a 74-year-old male past medical history significant for chronic respiratory failure with hypoxia on 3 L O2 via NC and nocturnal BiPAP, COPD, pulmonary nodules, chronic atrial fibrillation on eliquis, hypertension, hyperlipidemia, history of PE, anxiety, amongst others, who presents emergency room with complaints of shortness of breath. Of note patient was recently hospitalized at [facility] 04/21/2025 to 04/25/2025 with acuteon chronic hypoxic respiratory failure with COVID-19 pneumonia and COPD exacerbation. Patient states that last night 05/01/2025 he developed shortness of breath, dry nonproductive cough, difficulty swallowing (which he believes is related to dry throat), and ongoing chest pain. Describes chest pain as: Constant, central, localized, nonradiating, pressure sensation. He presents emergency room for further evaluation and treatment. Denies fever, chills, focal weakness, headache, lightheadedness, dizziness, sore throat, congestion, palpitations, abdominal pain, nausea, vomiting, diarrhea, constipation, dysuria or hematuria. Denies recent travel, surgeries or sick contacts. Upon H&P patient is afebrile, heart rate 101, respiratory rate 20, blood pressure 115/79, oxygen saturation 99% on chronic 3 L via nasal cannula. Labs performed revealing WBC 16.4, potassium 3.2,albumin 2.8, high-sensitivity troponin 14 with repeat 13, BNP 73. Chest x-ray imaging performed reve aling:Stable findings of emphysema with hyperinflation suggesting chronic obstructive pulmonary disease. Basilar predominant scarring is unchanged. Surgical changes throughout the upper lungs are stable compared to prior. No new pneumonia, pleural effusion, or pneumothorax. Cardiac silhouette is stably enlarged. Bones are unchanged. See full report for additional details. EKG performed revealing sinus rhythm with sinus arrhythmia and right bundle branch block. Patient was administered DuoNeb, Solu-Medrol, and care was transferred to medical service for further evaluation and treatment. Review of Systems Review of Systems HENT: Positive for trouble swallowing. Respiratory: Positive for cough and shortness of breath. Cardiovascular: Positive for chest pain. All other systems reviewed and are negative. MEDICAL HISTORY Past Medical History Medical History[1] Past Surgical History Surgical History[2] Social History reports that he quit smoking about 25 years ago. His smoking use included cigarettes. He has never used smokeless tobacco. He reports that he does not currently use alcohol. He reports that he does not use drugs. Lives alone. Independent with ADLs. Denies use of assistive device with ambulation. Family History family history includes Breast cancer in his mother; Diabetes in his mother; Heart attack in his sister; No Known Problems in his daughter and son; Other: Other in his brother; Ulcers in his father. Allergies has no known allergies. Home Medications Medications Ordered Prior to Encounter[3] OBJECTIVE Vitals Visit Vitals BP 115/79 (BP Location: Left arm, Patient Position: Lying) Pulse 101 Temp 36.9 ??C (98.4 ??F) (Oral) Resp 20 Temp (24hrs), Av.9 ??C (98.4 ??F), Min:36.9 ??C (98.4 ??F), Max:36.9 ??C (98.4 ??F) Body mass index is 30.11 kg/m??. No results found for: PTWT , PTHT Physical Examination General Exam: Age appropriate, awake, calm, cooperative, appearing in intermittent respiratory distress. Skin Exam: Warm, dry, intact, no diaphoresis. No rashes noted. Capillary refill < 3 seconds. Eye Exam: PERRLA, EOMI, no scleral icterus HEENT exam: Head is atraumatic, normocephalic. Oral mucosa moist. No trismus, drooling, or difficulty handling secretions. Neck Exam: Soft/supple, full range of motion, no nuchal rigidity Respiratory Exam: Diffuse wheezing to auscultation bilaterally, no rales or rhonchi. No tripoding or retractions. Intermittent increased work of breathing. Cardiovascular Exam: Tachycardic rate and irregular rhythm, no rubs gallops. Gastrointestinal Exam: No pulsations or visible masses, nondistended. Normoactive bowel sounds. Abdomen is soft, nontender, without rebound/guarding. No peritoneal signs appreciated. Musculoskeletal Exam: No calf tenderness or asymmetry, trace bilateral lower extremity non-pitting edema. Moving all extremities at the major joint spaces without difficulty. Neurological Exam: Alert and oriented X3. No focal deficit. Smile symmetric. No dysarthria/dysphagia. Tongue midline when protruded. Hearing appropriate. Following commands without difficulties. Psychiatric exam: stable mood and affect LAB RESULTS (most recent) HEMATOLOGY Lab Results Component Value Date WBC 16.4 (H) 05/02/2025 HGB 14.1 05/02/2025 HCT 44.0 05/02/2025 MCV 92.8 05/02/2025 PLT 189 05/02/2025 CHEMISTRY Lab Results Component Value Date GLUCOSE 94 05/02/2025 NA 142 05/02/2025 K 3.2 (L) 05/02/2025 CO2 31 05/02/2025 CL 104 05/02/2025 BUN 17 05/02/2025 CREATININE 0.99 05/02/2025 EGFR 80 05/02/2025 CALCIUM 9.0 05/02/2025 MG 1.9 05/02/2025 ANIONGAP 7 05/02/2025 Radiology XR Chest 2 Views Final Result FINDINGS/IMPRESSION: Stable findings of emphysema with hyperinflation suggesting chronic obstructive pulmonary disease. Basilar predominant scarring is unchanged. Surgical changes throughout the upper lungs are stable compared to prior. No new pneumonia, pleural effusion, or pneumothorax. Cardiac silhouette is stably enlarged. Bones are unchanged. -------- FINAL REPORT -------- Dictated By: SUDEEP CAMPOS Dictated Date: 05/02/2025 10:41 ET Assigned Physician: SUDEEP CAMPOS Reviewed and Electronically Signed By: SUDEEP CAMPOS Signed Date: 05/02/2025 10:45 ET Workstation ID: [id number] Transcribed By: Self Edit Transcribed Date: 05/02/2025 10:41 ET ASSESSMENT & PLAN COPD exacerbation - Bring patient into the hospital, monitor vital signs, ins and outs per floor protocol - Chest x-ray imaging performed revealing: Stable findings of emphysema with hyperinflation suggesting chronic obstructive pulmonary disease. Basilar predominant scarring is unchanged. Surgical changes throughout the upper lungs are stable compared to prior. No new pneumonia, pleural effusion, or pn eumothorax. Cardiac silhouette is stably enlarged. Bones are unchanged. 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 - Aspiration precautions History of pulmonary embolism - Continue chronic Eliquis Chronic atrial fibrillation Secondary hypercoagulable state - Continue chronic diltiazem as prescribed holding parameters - Continue chronic Eliquis Primary hypertension - Continue diltiazem as prescribed Mixed hyperlipidemia - Continue chronic statin Anxiety - Continue as needed alprazolam Admission checklist [x] Code status: Full Code - Confirmed [x] VTE Prophylaxis: Sequentials and chronic Eliquis [x] Diet order on admission: Dietary Orders (From admission, onward) Start Ordered 05/02/25 1153 Adult diet [facility]; General, Modified Consistency Options for Liquids and Solids; Regular; IDDSI Level 6 Soft & Bite Sized Diet effective now Question Answer Comment Location [facility] Diet Type (req) General Diet Type (req) Modified Consistency Options for Liquids and Solids General Diet Regular Modified Consistency Options for Liquids and Solids IDDSI Level 6 Soft & Bite Sized 05/02/25 1152 [x] Medication reconciliation Health Care proxy with Phone number: daughter Brittany [phone] Case discussed with [1] Past Medical History: Diagnosis Date ??? Atrial fibrillation ([facility]/HCC V24, CMS/HCC V28) DX:Atrial fibrillation ([facility]) ??? Chronic hypoxic respiratory failure (CMS/HCC V24, CMS/HCC V28) NOCTURNAL BIPAP ??? COPD (chronic obstructive pulmonary disease) (CMS/HCC V24, CMS/HCC V28) DX:COPD (chronic obstructive pulmonary disease) ([facility]) ??? Generalized anxiety disorder DX:Generalized anxiety disorder ??? Hypertension ??? Mixed hyperlipidemia DX:Mixed hyperlipidemia ??? Pulmonary embolism (CMS/HCC V24, CMS/HCC V28) ??? Pulmonary nodules DX:Pulmonary nodules [2] Past Surgical History: Procedure Laterality Date ??? FOOT SURGERY Right PROCEDURE: [place] UNLISTED PROCEDURE FOOT/TOES [3] No current facility-administered medications on file prior to encounter. Current Outpatient Medications on File Prior to Encounter Medication Sig Dispense Refill ??? albuterol HFA (PROAIR HFA ; PROVENTIL HFA ; VENTOLIN HFA) 90 mcg/actuation inhaler Inhale 2 puffs by mouth every 6 (six) hours if needed for wheezing. 6.7 g 11 ??? ALPRAZolam (XANAX) 0.5 mg tablet Take 1 tablet (0.5 mg total) by mouth 3 (three) times a day ifneeded for anxiety. Max Daily Amount: 1.5 mg 56 tablet 2 ??? atorvastatin (LIPITOR) 20 mg tablet TAKE 1 TABLET BY MOUTH EVERY DAY 90 tablet 1 ??? azithromycin (Zithromax) 500 mg tablet Take 1 tablet (500 mg total) by mouth 3 (three) times a week. 14 each 2 ??? cholecalciferol (VITAMIN D-3) 50 mcg (2,000 unit) tablet TAKE 1 TABLET BY MOUTH EVERY DAY 90 tablet 1 ??? dilTIAZem LA (CARDIZEM LA) 240 mg 24 hr tablet TAKE 1 TABLET BY MOUTH EVERY DAY 90 tablet 1 ??? Eliquis 5 mg tablet TAKE 1 TABLET BY MOUTH TWICE A DAY 60 tablet 5 ??? Incruse Ellipta 62.5 mcg/actuation inhalation INHALE 1 PUFF INTO THE LUNGS DAILY FOR 30 DAYS. 30 each 11 ??? montelukast (SINGULAIR) 10 mg tablet TAKE 1 TABLET BY MOUTH EVERY NIGHT AT BEDTIME. 30 tablet 10 ??? predniSONE (DELTASONE) 10 mg tablet Take 1 tablet (10 mg total) by mouth 1 (one) time each day. ??? roflumilast (DALIRESP) 500 mcg tablet Take 1 tablet (500 mcg total) by mouth 1 (one) time each day. 30 each 11 ??? sildenafiL (VIAGRA) 50 mg tablet Take 1 tablet (50 mg total) by mouth 1 (one) time each day if needed for erectile dysfunction. 12 tablet 3 ??? [DISCONTINUED] dexAMETHasone (DECADRON) 2 mg tablet Take 2 tablets (4 mg total) by mouth 1 (one) time each day for 4 days. 8 each 0 ??? [DISCONTINUED] fluticasone propion-salmeteroL (ADVAIR DISKUS) 500-50 mcg/dose diskus inhaler Inhale 1 puff by mouth 2 (two) times a day. Rinse mouth with water after use to reduce aftertaste and incidence of candidiasis. Do not swallow. ??? [DISCONTINUED] oxyCODONE-acetaminophen (PERCOCET) 5-325 mg per tablet Take by mouth. PRN Cosigned by Gumaro Sloan MD at 05/02/2025 6:55 PM EDT documented in this encounter Miscellaneous Notes * ED Bed Hold Note - Ayse Castillo RN - 05/02/2025 7:20 AM EDT Bed: - Expected date: 05/02/25 Expected time: 7:10 AM Means of arrival: Comments: sob documented in this encounter Plan of Treatment Upcoming Encounters Date Type Department Care Team (Late st Contact Info) Description 05/24/2025 10:45 AM EST Office Visit Pulmonology - [place] [address] [place] [phone] Ashleigh Anguiano MD [address] [place] [address] 05/26/2025 10:45 AM EST Office Visit Internal Medicine - [facility] [address] [place] [address] Karen Parsons NP [address] [place] [address] documented as of this encounter Goals Goal Patient Goal Type Associated Problems Recent Progress Patient-Stated? Author Pt to bring all medication into PCP appt on 04/14/2025 General Yes Ethel Meeks RN documented as of this encounter Procedures Procedure Name Priority Date/Time Associated Diagnosis Comments ECG ANNOTATED 05/05/2025 CBC WITH AUTO DIFFERENTIAL Routine 05/04/2025 6:30 AM EDT CBC AND DIFFERENTIAL Routine 05/04/2025 6:30 AM EDT MAGNESIUM Timed 05/04/2025 6:30 AM EDT BASIC METABOLIC PANEL Routine 05/04/2025 6:30 AM EDT COMPLETE BLOOD COUNT Routine 05/03/2025 3:12 AM EDT BASIC METABOLIC PANEL Routine 05/03/2025 3:12 AM EDT OCCULT BLOOD STOOL, GUAIAC Routine 05/03/2025 1:48 AM EDT RESPIRATORY VIRUS PANEL MOLECULAR STUDY Routine 05/02/2025 11:24 AM EDT XR CHEST 2 VIEWS STAT 05/02/2025 10:2 7 AM EDT TROPONIN I HIGH SENSITIVITY Timed 05/02/2025 9:33 AM EDT VENOUS BLOOD GAS STAT 05/02/2025 9:33 AM EDT TROPONIN I HIGH SENSITIVITY Timed 05/02/2025 7:55 AM EDT MANUAL DIFFERENTIAL - SYSMEX WAM STAT 05/02/2025 7:55 AM EDT CBC WITH AUTO DIFFERENTIAL STAT 05/02/2025 7:55 AM EDT CBC AND DIFFERENTIAL STAT 05/02/2025 7:55 AM EDT B-TYPE NATRIURETIC PEPTIDE STAT 05/02/2025 7:55 AM EDT MAGNESIUM STAT 05/02/2025 7:55 AM EDT LIPASE STAT 05/02/2025 7:55 AM EDT COMPREHENSIVE METABOLIC PANEL STAT 05/02/2025 7:55 AM EDT ECG 12-LEAD STAT 05/02/2025 7:46 AM EDT documented in this encounter Results * ECG-Annotated (05/05/2025) us Provider Onbase MD ECG ORDERABLES Final Result * (ABNORMAL) CBC auto differential (05/04/2025 6:30 AM EDT) WBC 16.3(H) 4.8 - 10.8 K/mcL LAB HEMETOLOGY METHOD 05/04/2025 6:56 AM [facility] RBC 4.50 4.50 - 5.50 M/mcL LAB HEMETOLOGY METHOD 05/04/2025 6:56 AM [facility] Hemoglobin 13.6 13.5 - 17.5 g/dL LAB HEMETOLOGY METHOD 05/04/2025 6:56 AM [facility] Hematocrit 40.7(L) 42.0 - 54.0 % LAB HEMETOLOGY METHOD 05/04/2025 6:56 AM [facility] MCV 89.6 79.0 - 98.0 FL LAB HEMETOLOGY METHOD 05/04/2025 6:56 AM [facility] MCH 30.0 27.0 - 32.0 pcg LAB HEMETOLOGY METHOD 05/04/2025 6:56 AM [facility] MCHC 33.4 32.0 - 37.0 g/dL LAB HEMETOLOGY METHOD 05/04/2025 6:56 AM [facility] RDW 16.8(H) 11.0 - 15.0 % LAB HEMETOLOGY METHOD 05/04/2025 6:56 AM [facility] Platelets 178 130 - 400 K/mcL LAB HEMETOLOGY METHOD 05/04/2025 6:56 AM [facility] MPV 10.4 7.0 - 11.0 FL LAB HEMETOLOGY METHOD 05/04/2025 6:56 AM [facility] NRBC 0.0 <1.0 % LAB HEMETOLOGY METHOD 05/04/2025 6:56 AM [facility] NRBC Absolute 0.00 <0.10 K/mcL LAB HEMETOLOGY METHOD 05/04/2025 6:56 AM [facility] Neutrophils Relative 91.7 % LAB HEMETOLOGY METHOD 05/04/2025 6:56 AM [facility] Lymphocytes Relative 3.1 % LAB HEMETOLOGY METHOD 05/04/2025 6:56 AM [facility] Monocytes Relative 2.3 % LAB HEMETOLOGY METHOD 05/04/2025 6:56 AM [facility] Eosinophils Relative 0.0 % LAB HEMETOLOGY METHOD 05/04/2025 6:56 AM [facility] Basophils Relative 0.3 % LAB HEMETOLOGY METHOD 05/04/2025 6:56 AM [facility] Immature Granulocytes Relative 2.6 % LAB HEMETOLOGY METHOD 05/04/2025 6:56 AM [facility] Neutrophils Absolute 14.96(H) 1.50 - 7.00 K/mcL LAB HEMETOLOGY METHOD 05/04/2025 6:56 AM [facility] Lymphocytes Absolute 0.51(L) 1.00 - 5.00 K/mcL LAB HEMETOLOGY METHOD 05/04/2025 6:56 AM [facility] Monocytes Absolute 0.38 0.20 - 1.00 K/mcL LAB HEMETOLOGY METHOD 05/04/2025 6:56 AM [facility] Eosinophils Absolute 0.00 0.00 - 0.50 K/mcL LAB HEMETOLOGY METHOD 05/04/2025 6:56 AM [facility] Basophils Absolute 0.05 0.00 - 0.20 K/[facility] LAB HEMETOLOGY METHOD 05/04/2025 6:56 AM EDT [facility] Immature Granulocytes Absolute 0.42(H) 0.00 - 0.03 K/[facility] LAB HEMETOLOGY METHOD 05/04/2025 6:56 AM EDT [facility] Blood Venous blood specimen / Unknown Venipuncture / Unknown 05/04/2025 6:30 AM EDT 05/04/2025 6:43 AM EDT us Kiesha ARVIZU LAB BLOOD ORDERABLES Final Result Performing Organization Address [facility]/ZIP Co de Phone Number [facility] [address] [place] [address], [place] [phone] * Magnesium (05/04/2025 6:30 AM EDT) Magnesium 2.2 1.9 - 2.6 mg/dL LAB CHEMISTRY METHOD 05/04/2025 7:48 AM EDT [facility] Blood Venous blood specimen / Unknown Venipuncture / Unknown 05/04/2025 6:30 AM EDT 05/04/2025 6:43 AM EDT us Kiesha ARVIZU LAB BLOOD ORDERABLES Final Result Performing Organization Address City/[facility]/ZIP Co de Phone Number [facility] [address] [place] [address], [place] [phone] * (ABNORMAL) Basic metabolic panel (05/04/2025 6:30 AM EDT) Sodium 143 133 - 145 mmol/L LAB CHEMISTRY METHOD 05/04/2025 7:48 AM EDT [facility] Potassium 3.7 3.5 - 5.5 mmol/L LAB CHEMISTRY METHOD 05/04/2025 7:48 AM EDT [facility] Chloride 107 96 - 110 mmol/L LAB CHEMISTRY METHOD 05/04/2025 7:48 AM [facility] CO2 27 21 - 32 mmol/L LAB CHEMISTRY METHOD 05/04/2025 7:48 AM [facility] Anion Gap 9 3 - 11 LAB CHEMISTRY METHOD 05/04/2025 7:48 AM [facility] Glucose 158(H) 70 - 100 mg/dL LAB CHEMISTRY METHOD 05/04/2025 7:48 AM [facility] BUN 22 5 - 25 mg/dL LAB CHEMISTRY METHOD 05/04/2025 7:48 AM [facility] Creatinine 1.13 0.70 - 1.30 mg/dL LAB CHEMISTRY METHOD 05/04/2025 7:48 AM [facility] eGFR 69 >=60 mL/min/1. 73m2 LAB CHEMISTRY METHOD 05/04/2025 7:48 AM [facility] Comment:Calculation based on the Chronic Kidney Disease Epidemiology Collaboration (CKD-EPI) equation refit without adjustment for race. BUN/Creatinine Ratio 19.5 LAB CHEMISTRY METHOD 05/04/2025 7:48 AM [facility] Calcium 9.2 8.5 - 10.5 mg/dL LAB CHEMISTRY METHOD 05/04/2025 7:48 AM [facility] Blood Venous blood specimen / Unknown Venipuncture / Unknown 05/04/2025 6:30 AM EDT 05/04/2025 6:43 AM EDT us Kiesha ARVIZU LAB BLOOD ORDERABLES Final Result [facility] [address] [place] [address], * (ABNORMAL) Complete blood count (05/03/2025 3:12 AM EDT) WBC 13.9(H) 4.8 - 10.8 K/mcL LAB HEMETOLOGY METHOD 05/03/2025 3:29 AM [facility] RBC 4.40(L) 4.50 - 5.50 M/mcL LAB HEMETOLOGY METHOD 05/03/2025 3:29 AM [facility] Hemoglobin 12.9(L) 13.5 - 17.5 g/dL LAB HEMETOLOGY METHOD 05/03/2025 3:29 AM [facility] Hematocrit 39.8(L) 42.0 - 54.0 % LAB HEMETOLOGY METHOD 05/03/2025 3:29 AM [facility] MCV 90.2 79.0 - 98.0 FL LAB HEMETOLOGY METHOD 05/03/2025 3:29 AM [facility] MCH 29.3 27.0 - 32.0 pcg LAB HEMETOLOGY METHOD 05/03/2025 3:29 AM [facility] MCHC 32.4 32.0 - 37.0 g/dL LAB HEMETOLOGY METHOD 05/03/2025 3:29 AM [facility] RDW 16.8(H) 11.0 - 15.0 % LAB HEMETOLOGY METHOD 05/03/2025 3:29 AM [facility] Platelets 175 130 - 400 K/mcL LAB HEMETOLOGY METHOD 05/03/2025 3:29 AM [facility] MPV 10.5 7.0 - 11.0 FL LAB HEMETOLOGY METHOD 05/03/2025 3:29 AM [facility] NRBC 0.0 <1.0 % LAB HEMETOLOGY METHOD 05/03/2025 3:29 AM [facility] NRBC Absolute 0.00 <0.10 K/mcL LAB HEMETOLOGY METHOD 05/03/2025 3:29 AM EDT [facility] Blood Venous blood specimen / Unknown Venipuncture / Unknown 05/03/2025 3:12 AM EDT 05/03/2025 3:25 AM EDT us Peg ARVIZU LAB BLOOD ORDERABLES Final R esult [facility] [address] [place] [address], [place] [phone] * (ABNORMAL) Basic metabolic panel (05/03/2025 3:12 AM EDT) Sodium 139 133 - 145 mmol/L LAB CHEMISTRY METHOD 05/03/2025 3:59 AM [facility] Potassium 5.1 3.5 - 5.5 mmol/L LAB CHEMISTRY METHOD 05/03/2025 3:59 AM [facility] Chloride 104 96 - 110 mmol/L LAB CHEMISTRY METHOD 05/03/2025 3:59 AM [facility] CO2 29 21 - 32 mmol/L LAB CHEMISTRY METHOD 05/03/2025 3:59 AM [facility] Anion Gap 6 3 - 11 LAB CHEMISTRY METHOD 05/03/2025 3:59 AM [facility] Glucose 177(H) 70 - 100 mg/dL LAB CHEMISTRY METHOD 05/03/2025 3:59 AM [facility] BUN 19 5 - 25 mg/dL LAB CHEMISTRY METHOD 05/03/2025 3:59 AM [facility] Creatinine 1.03 0.70 - 1.30 mg/dL LAB CHEMISTRY METHOD 05/03/2025 3:59 AM [facility] eGFR 77 >=60 mL/min/1. 73m2 LAB CHEMISTRY METHOD 05/03/2025 3:59 AM [facility] Comment:Calculation based on the Chronic Kidney Disease Epidemiology Collaboration (CKD-EPI) equation refit without adjustment for race. BUN/Creatinine Ratio 18.4 LAB CHEMISTRY METHOD 05/03/2025 3:59 AM EDT [facility] Calcium 9.1 8.5 - 10.5 mg/dL LAB CHEMISTRY METHOD 05/03/2025 3:59 AM EDT [facility] Blood Venous blood specimen / Unknown Venipuncture / Unknown 05/03/2025 3:12 AM EDT 05/03/2025 3:25 AM EDT Peg ARVIZU LAB BLOOD ORDERABLES Final R esult Performing Organization Address City/[facility]/ZIP Co de Phone Number [facility] [address] [place] [address], [place] [phone] * (ABNORMAL) Occult blood stool, guaiac (05/03/2025 1:48 AM EDT) [facility] Occult Blood, Stool #1 Positive( A) Negative 05/03/2025 2:27 AM EDT [facility] Stool Rectum structure / Unknown Non-blood Collection / Unknown 05/03/2025 1:48 AM EDT 05/03/2025 2:15 AM EDT us Peg ARVIZU LAB BODY FLUIDS AND STOOLS O RDERABLES Final Result Performing Organization Address City/[facility]/ZIP Co de Phone Number [facility] [address] [place] [address], [place] [phone] * (ABNORMAL) Respiratory virus panel molecular study (05/02/2025 11:24 AM EDT) [facility] Adenovirus Detection by PCR Not Detected Not Detected LAB MICROBIOLOGY METHOD 05/02/2025 12:36 PM EDT [facility] Influenza A PCR Not Detected Not Detected LAB MICROBIOLOGY METHOD 05/02/2025 12:36 PM EDT [facility] Influenza B PCR Not Detected Not Detected LAB MICROBIOLOGY METHOD 05/02/2025 12:36 PM EDT [facility] Coronavirus 229E Not Detected Not Detected LAB MICROBIOLOGY METHOD 05/02/2025 12:36 PM EDT [facility] Coronavirus HKU1 Not Detected Not Detected LAB MICROBIOLOGY METHOD 05/02/2025 12:36 PM EDT [facility] Coronavirus OC43 Not Detected Not Detected LAB MICROBIOLOGY METHOD 05/02/2025 12:36 PM EDT [facility] Coronavirus NL63 Not Detected Not Detected LAB MICROBIOLOGY METHOD 05/02/2025 12:36 PM EDT [facility] Parainfluenza Virus 1 Not Detected Not Detected LAB MICROBIOLOGY METHOD 05/02/2025 12:36 PM EDT [facility] Parainfluenza Virus 2 Not Detected Not Detected LAB MICROBIOLOGY METHOD 05/02/2025 12:36 PM EDT [facility] Parainfluenza Virus 3 Not Detected Not Detected LAB MICROBIOLOGY METHOD 05/02/2025 12:36 PM EDT [facility] Parainfluenza Virus 4 Not Detected Not Detected LAB MICROBIOLOGY METHOD 05/02/2025 12:36 PM EDT [facility] RSV PCR Not Detected Not Detected LAB MICROBIOLOGY METHOD 05/02/2025 12:36 PM EDT [facility] Human Metapneumovirus A and B Not Detected Not Detected LAB MICROBIOLOGY METHOD 05/02/2025 12:36 PM EDT [facility] Rhinovirus/Entero virus Not Detected Not Detected LAB MICROBIOLOGY METHOD 05/02/2025 12:36 PM EDT [facility] Bordetella pertussis Not Detected Not Detected LAB MICROBIOLOGY METHOD 05/02/2025 12:36 PM EDT [facility] Bordetella parapertussis Not Detected Not Detected LAB MICROBIOLOGY METHOD 05/02/2025 12:36 PM EDT [facility] Mycoplasma pneumo by PCR Not Detected Not Detected LAB MICROBIOLOGY METHOD 05/02/2025 12:36 PM EDT [facility] Chlamydia pneumoniae Not Detected Not Detected LAB MICROBIOLOGY METHOD 05/02/2025 12:36 PM EDT [facility] SARS COV-2 Detected(A ) Not Detected LAB MICROBIOLOGY METHOD 05/02/2025 12:36 PM EDT [facility] Swab Both anterior nares / Unknown Non-blood Collection / Unknown 05/02/2025 11:24 AM EDT 05/02/2025 11:44 AM EDT Narrative [facility] - 05/02/2025 12:36 PM EDT Testing was performed using the [employer] Respiratory Pathogen PCR Assay. All results must be correlated with the clinical findings. Results should not be used as the sole basis for diagnosis. False Negative results may occur from the presence of sequence variants in the region targeted by the assay or the presence of inhibitors. Results may be affected by concurrent antiviral/antimicrobial therapy or levels of organisms that are below the limit of detection. us Sissy ARVIZU LAB MICROBIOLOGY - GENERAL IDA RODRIGUEZ Final Result [facility] [address] [place] [address], * XR Chest 2 Views (05/02/2025 10:27 AM EDT) Anatomical Region Laterality Modality Body Radiographic Luciana ging 05/02/2025 10:4 1 AM EDT Impressions 05/02/2025 10:45 AM EDT FINDINGS/IMPRESSION: Stable findings of emphysema with hyperinflation suggesting chronic obstructive pulmonary disease. Basilar predominant scarring is unchanged. Surgical changes throughout the upper lungs are stable compared to prior. No new pneumonia, pleural effusion, or pneumothorax. Cardiac silhouette is stably enlarged. Bones are unchanged. -------- FINAL REPORT -------- Dictated By: SUDEEP CAMPOS Dictated Date: 05/02/2025 10:41 ET Assigned Physician: SUDEEP CAMPOS Reviewed and Electronically Signed By: SUDEEP CAMPOS Signed Date: 05/02/2025 10:45 ET Workstation ID: [id number] Transcribed By: Self Edit Transcribed Date: 05/02/2025 10:41 ET Narrative 05/02/2025 10:45 AM EDT XR CHEST 2 VIEWS INDICATION: Dyspnea TECHNIQUE: XR CHEST 2 VIEWS COMPARISON: 04/21/2025 Procedure Note Sudeep Campos MD - 05/02/2025 XR CHEST 2 VIEWS INDICATION: Dyspnea TECHNIQUE: XR CHEST 2 VIEWS COMPARISON: 04/21/2025 IMPRESSION: FINDINGS/IMPRESSION: Stable findings of emphysema with hyperinflationsuggesting chronic obstructive pulmonary disease. Basilar predominantscarring is unchanged. Surgical changes throughout the upper lungs arestable compared to prior. No new pneumonia, pleural effusion, orpneumothorax. Cardiac silhouette is stably enlarged. Bones areunchanged. -------- FINAL REPORT -------- Dictated By: SUDEEP CAMPOS Dictated Date: 05/02/2025 10:41 ET Assigned Physician: SUDEEP CAMPOS Reviewed and Electronically Signed By: SUDEEP CAMPOS Signed Date: 05/02/2025 10:45 ET Workstation ID: [id number] Transcribed By: Self Edit Transcribed Date: 05/02/2025 10:41 ET us Dano Gaspar MD IMG XR PROCEDURES Final Resu lt * (ABNORMAL) Venous blood gas (05/02/2025 9:33 AM EDT) pH, [place] 7.40 7.32 - 7.42 pH 05/02/2025 9:42 AM EDT [facility] pCO2, [place]io 59(H) 41 - 51 mmHg 05/02/2025 9:42 AM EDT [facility] pO2, [place] 28 25 - 40 mmHg 05/02/2025 9:42 AM EDT [facility] HCO3, Venous 30.5(H) 22.0 - 26.0 mmol/L 05/02/2025 9:42 AM EDT [facility] O2 Sat, [place]io 37.5 % 05/02/2025 9:42 AM EDT [facility] Base Excess, [place] 9.4(H) -2.0 - 2.0 mmol/L 05/02/2025 9:42 AM EDT [facility] Blood Venous blood specimen / Unknown Venipuncture / Unknown 05/02/2025 9:33 AM EDT 05/02/2025 9:38 AM EDT us Dano Gaspar MD LAB BLOOD ORDERABLES Final R esult Performing Organization Address [facility]/ZIP Co de Phone Number [facility] [address] [place] [address], [place] [phone] * Troponin I high sensitivity (05/02/2025 9:33 AM EDT) [facility] High Sensitivity Troponin I 13 <=79 ng/L LAB CHEMISTRY METHOD 05/02/2025 10:38 AM EDT [facility] Blood Venous blood specimen / Unknown Venipuncture / Unknown 05/02/2025 9:33 AM EDT 05/02/2025 9:39 AM EDT Narrative [facility] - 05/02/2025 10:38 AM EDT High levels of biotin in samples may falsely decrease hsTroponin values. Use caution when interpreting hsTroponin results in patients taking biotin who exhibit renal impairment (eGFR <60) or in patients taking more than 20 mg/day of biotin. us Dano Gaspar MD LAB BLOOD ORDERABLES Final R esult Performing Organization Address City/[facility]/ZIP Co de Phone Number [facility] [address] [place] [address], [place] [phone] * (ABNORMAL) Manual differential (05/02/2025 7:55 AM EDT) Pathologist [facility] Neutrophils % 85.0 % LAB HEMETOLOGY METHOD 5 8:39 AM [facility] Lymphocytes % 9.0 % LAB HEMETOLOGY METHOD 5 8:39 AM [facility] Monocytes % 3.0 % LAB HEMETOLOGY METHOD 5 8:39 AM [facility] Eosinophils % 2.0 % LAB HEMETOLOGY METHOD 5 8:39 AM [facility] Basophils % 0.0 % LAB HEMETOLOGY METHOD 5 8:39 AM [facility] Metamyelocytes % 2.0(H) % LAB HEMETOLOGY METHOD 5 8:39 AM [facility] Myelocytes % 1.0(H) % LAB HEMETOLOGY METHOD 5 8:39 AM [facility] Neutrophils Absolute Manual 13.94(H) 1.50 - 7.00 K/mcL LAB HEMETOLOGY METHOD 5 8:39 AM [facility] Lymphocytes Absolute 1.48 1.00 - 5.00 K/mcL LAB HEMETOLOGY METHOD 5 8:39 AM [facility] Monocytes Absolute Manual 0.49 0.20 - 1.00 K/mcL LAB HEMETOLOGY METHOD 5 8:39 AM [facility] Eosinophils Absolute Manual 0.33 0.00 - 0.50 K/mcL LAB HEMETOLOGY METHOD 5 8:39 AM [facility] Basophils Absolute Manual 0.00 0.00 - 0.20 K/mcL LAB HEMETOLOGY METHOD 5 8:39 AM [facility] Metamyelocytes Absolute Manual 0.33(H) 0.00 - 0.00 K/mcL LAB HEMETOLOGY METHOD 8:39 AM EDT [facility] Myelocytes Absolute Manual 0.16(H) 0.00 - 0.00 K/[facility] LAB HEMETOLOGY METHOD 8:39 AM EDT [facility] Rbc Morphology Consistent with indices Consistent with indices, Normal for [place] LAB HEMETOLOGY METHOD 8:39 AM EDT [facility] Platelet Morphology - WAM See Note(A) Normal LAB HEMETOLOGY METHOD 8:39 AM EDT [facility] Comment:PLT: Normal Blood Venous blood specimen / Unknown Venipuncture / Unknown 05/02/2025 7:55 AM EDT 05/02/2025 8:03 AM EDT Dano Gaspar MD LAB BLOOD ORDERABLES Final R esult [facility] [address] [place] [address], * (ABNORMAL) CBC auto differential (05/02/2025 7:55 AM EDT) WBC 16.4(H) 4.8 - 10.8 K/[facility] LAB HEMETOLOGY METHOD 05/02/2025 8:39 AM EDT [facility] RBC 4.70 4.50 - 5.50 M/[facility] LAB HEMETOLOGY METHOD 05/02/2025 8:39 AM EDT [facility] Hemoglobin 14.1 13.5 - 17.5 g/dL LAB HEMETOLOGY METHOD 05/02/2025 8:39 AM EDT [facility] Hematocrit 44.0 42.0 - 54.0 % LAB HEMETOLOGY METHOD 05/02/2025 8:39 AM EDT [facility] MCV 92.8 79.0 - 98.0 FL LAB HEMETOLOGY METHOD 05/02/2025 8:39 AM EDT [facility] MCH 29.7 27.0 - 32.0 pcg LAB HEMETOLOGY METHOD 05/02/2025 8:39 AM EDT [facility] MCHC 32.0 32.0 - 37.0 g/dL LAB HEMETOLOGY METHOD 05/02/2025 8:39 AM EDT [facility] RDW 16.8(H) 11.0 - 15.0 % LAB HEMETOLOGY METHOD 05/02/2025 8:39 AM EDT [facility] Platelets 189 130 - 400 K/mcL LAB HEMETOLOGY METHOD 05/02/2025 8:39 AM EDT [facility] MPV 9.8 7.0 - 11.0 FL LAB HEMETOLOGY METHOD 05/02/2025 8:39 AM EDT [facility] NRBC 0.0 <1.0 % LAB HEMETOLOGY METHOD 05/02/2025 8:39 AM EDT [facility] NRBC Absolute 0.00 <0.10 K/mcL LAB HEMETOLOGY METHOD 05/02/2025 8:39 AM EDT [facility] Blood Venous blood specimen / Unknown Venipuncture / Unknown 05/02/2025 7:55 AM EDT 05/02/2025 8:03 AM EDT us Dano Gaspar MD LAB BLOOD ORDERABLES Final R esult [facility] [address] [place] [address], * B-type natriuretic peptide (05/02/2025 7:55 AM EDT) BNP 73 <=100 pcg/mL LAB CHEMISTRY METHOD 05/02/2025 8:48 AM EDT [facility] Blood Venous blood specimen / Unknown Venipuncture / Unknown 05/02/2025 7:55 AM EDT 05/02/2025 8:03 AM EDT us Dano Gaspar MD LAB BLOOD ORDERABLES Final R esult Performing Organization Address [facility]/ZIP Co de Phone Number [facility] [address] [place] [address], [place] [phone] * Magnesium (05/02/2025 7:55 AM EDT) Magnesium 1.9 1.9 - 2.6 mg/dL LAB CHEMISTRY METHOD 05/02/2025 8:40 AM EDT [facility] Blood Venous blood specimen / Unknown Venipuncture / Unknown 05/02/2025 7:55 AM EDT 05/02/2025 8:03 AM EDT us Dano Gaspar MD LAB BLOOD ORDERABLES Final R esult Performing Organization Address [facility] de Phone Number [facility] [address] [place] [address], [place] [phone] * Lipase (05/02/2025 7:55 AM EDT) Lipase 23 13 - 75 unit/L LAB CHEMISTRY METHOD 05/02/2025 8:40 AM EDT [facility] Blood Venous blood specimen / Unknown Venipuncture / Unknown 05/02/2025 7:55 AM EDT 05/02/2025 8:03 AM EDT us Dano Gaspar MD LAB BLOOD ORDERABLES Final R esult Performing Organization Address City/[facility]/ZIP Co de Phone Number [facility] [address] [place] [address], [place] [phone] * (ABNORMAL) Comprehensive metabolic panel (05/02/2025 7:55 AM EDT) Sodium 142 133 - 145 mmol/L LAB CHEMISTRY METHOD 05/02/2025 9:18 AM [facility] Potassium 3.2(L) 3.5 - 5.5 mmol/L LAB CHEMISTRY METHOD 05/02/2025 9:18 AM [facility] Chloride 104 96 - 110 mmol/L LAB CHEMISTRY METHOD 05/02/2025 9:18 AM [facility] CO2 31 21 - 32 mmol/L LAB CHEMISTRY METHOD 05/02/2025 9:18 AM [facility] Anion Gap 7 3 - 11 LAB CHEMISTRY METHOD 05/02/2025 9:18 AM [facility] Glucose 94 70 - 100 mg/dL LAB CHEMISTRY METHOD 05/02/2025 9:18 AM [facility] BUN 17 5 - 25 mg/dL LAB CHEMISTRY METHOD 05/02/2025 9:18 AM [facility] Creatinine 0.99 0.70 - 1.30 mg/dL LAB CHEMISTRY METHOD 05/02/2025 9:18 AM [facility] eGFR 80 >=60 mL/min/1. 73m2 LAB CHEMISTRY METHOD 05/02/2025 9:18 AM [facility] Comment:Calculation based on the Chronic Kidney Disease Epidemiology Collaboration (CKD-EPI) equation refit without adjustment for race. BUN/Creatinine Ratio 17.2 LAB CHEMISTRY METHOD 05/02/2025 9:18 AM [facility] Calcium 9.0 8.5 - 10.5 mg/dL LAB CHEMISTRY METHOD 05/02/2025 9:18 AM [facility] AST (SGOT) 19 10 - 42 unit/L LAB CHEMISTRY METHOD 05/02/2025 9:18 AM [facility] ALT (SGPT) 54 10 - 60 unit/L LAB CHEMISTRY METHOD 05/02/2025 9:18 AM EDT [facility] Alkaline Phosphatase 86 42 - 121 unit/L LAB CHEMISTRY METHOD 05/02/2025 9:18 AM EDT [facility] Total Protein 5.8(L) 6.0 - 8.0 g/dL LAB CHEMISTRY METHOD 05/02/2025 9:18 AM EDT [facility] Albumin 2.8(L) 3.2 - 5.0 g/dL LAB CHEMISTRY METHOD 05/02/2025 9:18 AM EDT [facility] Total Bilirubin 1.0 0.0 - 1.4 mg/dL LAB CHEMISTRY METHOD 05/02/2025 9:18 AM EDT [facility] Comment:Results verified by repeat testing Blood Venous blood specimen / Unknown Venipuncture / Unknown 05/02/2025 7:55 AM EDT 05/02/2025 8:03 AM EDT Dano Gaspar MD LAB BLOOD ORDERABLES Final R esult [facility] [address] [place] [address], * Troponin I high sensitivity (05/02/2025 7:55 AM EDT) High Sensitivity Troponin I 14 <=79 ng/L LAB CHEMISTRY METHOD 05/02/2025 8:41 AM EDT [facility] Blood Venous blood specimen / Unknown Venipuncture / Unknown 05/02/2025 7:55 AM EDT 05/02/2025 8:04 AM EDT Narrative [facility] - 05/02/2025 8:41 AM EDT High levels of biotin in samples may falsely decrease hsTroponin values. Use caution when interpreting hsTroponin results in patients taking biotin who exhibit renal impairment (eGFR <60) or in patients taking more than 20 mg/day of biotin. us Dano Gaspar MD LAB BLOOD ORDERABLES Final R esult [facility] [address] [place] [address], [place] [phone] * ECG 12 lead (05/02/2025 7:46 AM EDT) Ventricular Rate ECG 80 BPM GEMUSE Atrial Rate 80 BPM GEMUSE P-R Interval 276 ms GEMUSE QRS Duration 146 ms GEMUSE Q-T Interval 382 ms GEMUSE QTc 440 ms GEMUSE R [place] 57 degrees GEMUSE T [place] -37 degrees GEMUSE ECG Interpretation Atrial fibrillation Right bundle branch block T wave abnormality, consider inferior ischemia Abnormal ECG When compared with ECG of 21-APR-2025 09:33, No significant change was found Confirmed by MD Pak Christopher ([id number]) on 05/03/2025 8:41:48 AM GEMUSE 05/02/2025 7:46 AM EDT 05/03/2025 8:41 AM EDT Dano Gaspar MD ECG ORDERABLES Final Result GEMUSE documented in this encounter Visit Diagnoses Diagnosis Candidiasis of esophagus ([facility] V24, [facility] V28)- Primary Candidiasis of the esophagus COPD exacerbation ([facility] V24, [facility] V28) Obstructive chronic bronchitis with exacerbation COPD (chronic obstructive pulmonary disease) ([facility] V24, [facility] V28) Chronic airway obstruction, not elsewhere classified documented in this encounter Admitting Diagnoses Diagnosis COPD (chronic obstructive pulmonary disease) ([facility] V24, [facility] V28) Chronic airway obstruction, not elsewhere classified documented in this encounter Administered Medications Inactive Administered Medications - up to 3 most recent administrations Medication Order MAR Action Action Date Dose Rate Site acetaminophen (TYLENOL) tablet 650 mg 650 mg, oral, Every 6 hours PRN, mild pain, headaches, fever - temperature GREATER than 38 C (100.4 F), Starting on Thu05/02/25 at 1152 apixaban (ELIQUIS) tablet 5 mg 5 mg, oral, 2 times daily, First dose on Thu05/02/25 at 2100, Indication: Atrial Fibrillation, VTE/PE Treatment Given 05/04/2025 9:47 AM EDT 5 mg Given 05/03/2025 9:17 PM EDT 5 mg Given 05/02/2025 8:01 PM EDT 5 mg atorvastatin (LIPITOR) tablet 20 mg 20 mg, oral, Daily, First dose on Thu05/03/25 at 0900 Given 05/04/2025 9:47 AM EDT 20 mg Given 05/03/2025 8:42 AM EDT 20 mg azithromycin (ZITHROMAX) tablet 500 mg 500 mg, oral, 3 times weekly (Once per day on Thursday), First dose on Thu05/03/25 at 0900, For 83 days, Indication: Other, Specify: COPD Given 05/03/2025 8:42 AM EDT 500 mg cefTRIAXone (ROCEPHIN) 1 g in sterile water 10 mL IV syringe 1 g, intravenous, Administer over 3 Minutes, Every 24 hours, First dose on Thu05/02/25 at 1152, For 7 days, Do not administer simultaneously with any calcium containing solutions via a Y-site in any patient., Indication: Other, Specify: COPD EXACERBATION Given 05/04/2025 12:11 PM EDT 1 g Given 05/03/2025 11:13 AM EDT 1 g Given 05/02/2025 12:51 PM EDT 1 g cholecalciferol (VITAMIN D-3) tablet 2,000 Units 2,000 Units, oral, Daily, First dose on Thu05/03/25 at 0900, 1000 units = 25 mcg of cholecalciferol (VITAMIN D3) Given 05/04/2025 9:47 AM EDT 2,000 Un its Given 05/03/2025 8:42 AM EDT 2,000 Units dilTIAZem CD (CARDIZEM CD) 24 hr capsule 240 mg 240 mg, oral, Daily, First dose on Thu05/03/25 at 0900, HOLD IF SBP < 100 OR HR < 60 Do not crush, chew, or split. Given 05/04/2025 9:47 AM EDT 240 mg Given 05/03/2025 8:44 AM EDT 240 mg fluconazole (DIFLUCAN) IVPB 200 mg 200 mg, intravenous, at 100 mL/hr, Every 24 hours, First dose on Thu05/04/25 at 0900, For 7 days, Hazardous Medication - Double pair of ASTM standard D6978 certified gloves - Eye/face protection if liquid that could splash - Staff at reproductive risk must also wear a hazardous gown, Indication: Candidiasis New Bag 05/04/2025 10:02 AM EDT 200 mg 100 mL/hr fluconazole (DIFLUCAN) IVPB 400 mg 400 mg, intravenous, at 100 mL/hr, Once, On Thu05/03/25 at 1000, For 1 dose, Hazardous Medication - Double pair of ASTM standard D6978 certified gloves - Eye/face protection if liquid that could splash - Staff at reproductive risk must also wear a hazardous gown, Indication: Candidiasis New Bag 05/03/2025 11:13 AM EDT 400 mg 100 mL/hr ipratropium-albuteroL (DUONEB) 0.5-2.5 mg/3 mL nebulizer solution 3 mL 3 mL, nebulization, Every 20 min, First dose on Thu05/02/25 at 0832, For 2 doses Given 05/02/2025 9:08 AM EDT 3 mL Given 05/02/2025 8:41 AM EDT 3 mL ipratropium-albuteroL (DUONEB) 0.5-2.5 mg/3 mL nebulizer solution 3 mL 3 mL, nebulization, 4 times daily, First dose on Thu05/02/25 at 1300 Given 05/04/2025 11:23 AM EDT 3 mL Given 05/03/2025 8:04 PM EDT 3 mL Given 05/03/2025 3:05 PM EDT 3 mL methylPREDNISolone sodium succ (SOLU-Medrol) injection 125 mg 125 mg, intravenous, Once, On Thu05/02/25 at 0832, For 1 dose, Reconstitute each 125 mg vial with 2 mL sterile water for injection to a concentration of 62.5 mg/mL. Given 05/02/2025 8:41 AM EDT 125 mg methylPREDNISolone sodium succ (SOLU-Medrol) injection 60 mg 60 mg, intravenous, Every 6 hours scheduled, First dose on Thu05/02/25 at 1200, Reconstitute each 125 mg vial with 2 mL sterile water for injection to a concentration of 62.5 mg/mL. Given 05/04/2025 2:04 AM EDT 60 mg Given 05/03/2025 9:17 PM EDT 60 mg Given 05/03/2025 2:02 PM EDT 60 mg metoprolol tartrate (LOPRESSOR) injection 5 mg 5 mg, intravenous, Once, On Thu05/02/25 at 2115, For 1 dose, For IV Push - Administer undiluted over 2 minutes *Hold if sbp < 110 Given 05/02/2025 8:57 PM EDT 5 mg metoprolol tartrate (LOPRESSOR) tablet 25 mg 25 mg, oral, Once, On Thu05/02/25 at 2230, For 1 dose, Hold if systolic blood pressure is less than 100 mmHg or heart rate less than 50; hold morning of stress testing Given 05/02/2025 10:18 PM EDT 25 mg montelukast (SINGULAIR) tablet 10 mg 10 mg, oral, Nightly, First dose on Thu05/02/25 at 2100 Given 05/03/2025 9:17 PM EDT 10 mg Given 05/02/2025 8:01 PM EDT 10 mg ondansetron (PF) (ZOFRAN) injection 4 mg 4 mg, intravenous, Every 8 hours PRN, vomiting, nausea, Starting on Thu05/02/25 at 1152, -ONLY give IV if patient is unable to take orally. -If inadequate response within 30 minutes, proceed to next-line agent or contact provider if no further options ordered. ondansetron ODT (ZOFRAN-ODT) disintegrating tablet 4 mg 4 mg, oral, Every 8 hours PRN, vomiting, nausea, Starting on Thu05/02/25 at 1152, -Give IV if patient is unable to take orally. -If inadequate response within 30 minutes, proceed to next-line agent or contact provider if no further options ordered. For ODT tablets: -Do not remove from blister pack until just before administering. -Patient should allow tablet to dissolve on tongue. predniSONE (DELTASONE) tablet 30 mg 30 mg, oral, Daily, First dose (after last modification) on Thu05/05/25 at 0900, For 4 doses predniSONE (DELTASONE) tablet 40 mg 40 mg, oral, Daily, First dose on Kinsey 05/04/25 at 0900, For 5 days Given 05/04/2025 9:47 AM EDT 40 mg roflumilast (DALIRESP) tablet 500 mcg 500 mcg, oral, Daily, First dose on Thu05/02/25 at 1152 Given 05/04/2025 9:47 AM EDT 500 mcg Given 05/03/2025 8:43 AM EDT 500 mcg Given 05/02/2025 1:15 PM EDT 500 mcg documented in this encounter Discontinued Medications Medication Sig Discontinue Reason Start Date End Da te dexAMETHasone (DECADRON) 2 mg tablet Take 2 tablets (4 mg total) by mouth 1 (one) time each day for 4 days. Therapy completed 04/25/2025 05/02/2025 oxyCODONE-acetaminoph en (PERCOCET) 5-325 mg per tablet Take by mouth. PRN Therapy completed 05/02/2025 fluticasone propion-salmeteroL (ADVAIR DISKUS) 500-50 mcg/dose diskus inhaler Inhale 1 puff by mouth 2 (two) times a day. Rinse mouth with water after use to reduce aftertaste and incidence of candidiasis. Do not swallow. Therapy completed 05/02/2025 predniSONE (DELTASONE) 10 mg tablet Take 5 tablets (50 mg total) by mouth 1 (one) time each day for 2 days, THEN 4 tablets (40 mg total) 1 (one) time each day for 2 days, THEN 3 tablets (30 mg total) 1 (one) time each day for 2 days, THEN 2 tablets (20 mg total) 1 (one) time each day for 2 days, THEN 1 tablet (10 mg total) 1 (one) time each day. 05/04/2025 05/04/2025 predniSONE (DELTASONE) 10 mg tablet Take 1 tablet (10 mg total) by mouth 1 (one) time each day. Stop Taking at Discharge 04/29/2025 05/04/2025 documented as of this encounter Historical Medications * This list may reflect changes made after this encounter. fluticasone propion-salmeter oL (ADVAIR DISKUS) 500-50 mcg/dose diskus inhaler Inhale 1 puff by mouth 2 (two) times a day. Rinse mouth with water after use to reduce aftertaste and incidence of candidiasis. Do not swallow. added in this encounter Active and Recently Administered Medications Times are shown in EDT. Scheduled Medication Order 05/02/2025 05/03/2025 05/04/2025 apixaban (ELIQUIS) tablet 5 mg 5 mg, oral, 2 times daily, First dose on Thu05/02/25 at 2100, Indication: Atrial Fibrillation, VTE/PE Treatment 2000 (Given - Provider: Francine Ortega RN) 034 (Held by provider - Provider: [facility] - Reason: Other)0900 (Hold - Provider: Maribell Alvares RN - Reason: See Provider Order)1337 (Unheld by provider - Provider: [facility])2117 (Given - Provider: Kosta Fernando RN) 0947 (Given - Provider: Jacque Barker, DEIDRE) atorvastatin (LIPITOR) tablet 20 mg 20 mg, oral, Daily, First dose on Thu05/03/25 at 0900 0842 (Given - Provider: Maribell Alvares RN) 0947 (Given - Provider: Jacque Barker, DEIDRE) azithromycin (ZITHROMAX) tablet 500 mg 500 mg, oral, 3 times weekly (Once per day on Thursday), First dose on Thu05/03/25 at 0900, For 83 days, Indication: Other, Specify: COPD 1151 (Held by provider - Provider: [facility] - Reason: Other) 0733 (Unheld by provider - Provider: [facility])0842 (Given - Provider: Maribell Alvares RN) cefTRIAXone (ROCEPHIN) 1 g in sterile water 10 mL IV syringe 1 g, intravenous, Administer over 3 Minutes, Every 24 hours, First dose on Thu05/02/25 at 1152, For 7 days, Do not administer simultaneously with any calcium containing solutions via a Y-site in any patient., Indication: Other, Specify: COPD EXACERBATION 1251 (Given - Provider: Suzy De La Rosa RN) 1113 (Given - Provider: Maribell Alvares RN) 1211 (Given - Provider: Jacque Barker, RN) cholecalciferol (VITAMIN D-3) tablet 2,000 Units 2,000 Units, oral, Daily, First dose on Thu05/03/25 at 0900, 1000 units = 25 mcg of cholecalciferol (VITAMIN D3) 0842 (Given - Provider: Maribell Alvares RN) 0947 (Given - Provider: Jacque Barker, RN) dilTIAZem CD (CARDIZEM CD) 24 hr capsule 240 mg 240 mg, oral, Daily, First dose on Thu05/03/25 at 0900, HOLD IF SBP < 100 OR HR < 60 Do not crush, chew, or split. 0844 (Given - Provider: Maribell Alvares RN) 0947 (Given - Provider: Jacque Barker, RN - Comment: hr 94) fluconazole (DIFLUCAN) IVPB 200 mg 200 mg, intravenous, at 100 mL/hr, Every 24 hours, First dose on Thu05/04/25 at 0900, For 7 days, Hazardous Medication - Double pair of ASTM standard D6978 certified gloves - Eye/face protection if liquid that could splash - Staff at reproductive risk must also wear a hazardous gown, Indication: Candidiasis 1002 (New Bag - Provider: Jacque Barker, DEIDRE) fluconazole (DIFLUCAN) IVPB 400 mg (COMPLETED) 400 mg, intravenous, at 100 mL/hr, Once, On Thu05/03/25 at 1000, For 1 dose, Hazardous Medication - Double pair of ASTM standard D6978 certified gloves - Eye/face protection if liquid that could splash - Staff at reproductive risk must also wear a hazardous gown, Indication: Candidiasis 1113 (New Bag - Provider: Maribell Alvares RN)1315 (Stopped - Provider: Maribell Alvares RN) ipratropium-albuteroL (DUONEB) 0.5-2.5 mg/3 mL nebulizer solution 3 mL (COMPLETED) 3 mL, nebulization, Every 20 min, First dose on Thu05/02/25 at 0832, For 2 doses 0841 (Given - Provider: Sunita Jarvis, DEIDRE)0908 (Given - Provider: Sunita Jarvis, RN) ipratropium-albuteroL (DUONEB) 0.5-2.5 mg/3 mL nebulizer solution 3 mL 3 mL, nebulization, 4 times daily, First dose on Thu05/02/25 at 1300 1630 (Given - Provider: Kiesha Villasenor, JUAN)2007 (Given - Provider: Urmila Hernandez - Comment: Med due) 0725 (Given - Provider: Ela Iyer)1125 (Given - Provider: Ela Iyer)1505 (Given - Provider: Ela Iyer)2003 (Given - Provider: Krystal Teague, JUAN) 0732 (Not Given - Provider: Danna Hassan RRT - Reason: Other - Comment: ASLEEP)1123 (Given - Provider: Danna Hassan RRT)1600 (Canceled Entry - Provider: Automatic Discharge Provider - Comment: Automatically canceled at discontinue of medication order) methylPREDNISolone sodium succ (SOLU-Medrol) injection 125 mg (COMPLETED) 125 mg, intravenous, Once, On Thu05/02/25 at 0832, For 1 dose, Reconstitute each 125 mg vial with 2 mL sterile water for injection to a concentration of 62.5 mg/mL. 0841 (Given - Provider: Sunita Jarvis RN) methylPREDNISolone sodium succ (SOLU-Medrol) injection 60 mg (CANCELED) 60 mg, intravenous, Every 6 hours scheduled, First dose on Thu05/02/25 at 1200, Reconstitute each 125 mg vial with 2 mL sterile water for injection to a concentration of 62.5 mg/mL. 1427 (Given - Provider: Suzy De La Rosa RN)2000 (Given - Provider: Francine Ortega RN) 0223 (Given - Provider: Francine Ortega RN)0841 (Given - Provider: Maribell Alvares RN)1402 (Given - Provider: Maribell Alvares, DEIDRE)2117 (Given - Provider: Kosta Fernando, RN) 0204 (Given - Provider: Kosta Fernando, RN)0829 (Not Given - Provider: Jacque Barker RN - Reason: See Provider Order - Comment: per provider) metoprolol tartrate (LOPRESSOR) injection 5 mg (COMPLETED) 5 mg, intravenous, Once, On Thu05/02/25 at 2115, For 1 dose, For IV Push - Administer undiluted over 2 minutes *Hold if sbp < 110 2056 (Given - Provider: Francine Ortega RN) metoprolol tartrate (LOPRESSOR) tablet 25 mg (COMPLETED) 25 mg, oral, Once, On Thu05/02/25 at 2230, For 1 dose, Hold if systolic blood pressure is less than 100 mmHg or heart rate less than 50; hold morning of stress testing 221 (Given - Provider: Francine Ortega RN) montelukast (SINGULAIR) tablet 10 mg 10 mg, oral, Nightly, First dose on Thu05/02/25 at 2100 2000 (Given - Provider: Francine Ortega RN) 2116 (Given - Provider: Kosta Fernando RN) predniSONE (DELTASONE) tablet 10 mg 10 mg, oral, Daily, First dose on Thu05/02/25 at 1152, For 57 days, On hold since Thu05/02/2025 at 1151 until manually unheld 1151 (Held by provider - Provider: [facility] - Reason: Other)1152 (Not Given - Provider: Suzy De La Rosa RN - Reason: See Provider Order) 0900 (Hold - Provider: Maribell Alvares RN - Reason: See Provider Order) 0900 (Not Given - Provider: Jacque Barker RN - Reason: See Provider Order)1838 (Unheld by provider - Provider: Automatic Discharge Provider) predniSONE (DELTASONE) tablet 30 mg 30 mg, oral, Daily, First dose (after last modification) on Thu05/05/25 at 0900, For 4 doses predniSONE (DELTASONE) tablet 40 mg (CANCELED) 40 mg, oral, Daily, First dose on Thu05/04/25 at 0900, For 5 days 0947 (Given - Provider: Jacque Barker, DEIDRE) revefenacin (YUPELRI) 175 mcg/3 mL nebulizer solution 175 mcg 175 mcg, nebulization, Daily, First dose on Thu05/02/25 at 1152, On hold since Thu05/02/2025 at 1203 until manually unheld 1203 (Held by provider - Provider: [facility] - Reason: Other)1316 (Not Given - Provider: Suzy De La Rosa RN - Reason: See Provider Order) 0900 (Hold - Provider: Maribell Alvares RN - Reason: See Provider Order) 0900 (Hold - Provider: Jacque Barker RN - Reason: See Provider Order)1838 (Unheld by provider - Provider: Automatic Discharge Provider) roflumilast (DALIRESP) tablet 500 mcg 500 mcg, oral, Daily, First dose on Thu05/02/25 at 1152 1315 (Given - Provider: Suzy De La Rosa RN - Comment: patient came from ED) 0843 (Given - Provider: Maribell Alvares RN) 0947 (Given - Provider: Jacque Barker RN) PRN Medication Order 05/02/2025 05/03/2025 05/04/2025 acetaminophen (TYLENOL) tablet 650 mg 650 mg, oral, Every 6 hours PRN, mild pain, headaches, fever - temperature GREATER than 38 C (100.4 F), Starting on Thu05/02/25 at 1152 albuterol 2.5 mg /3 mL (0.083 %) nebulizer solution 2.5 mg 2.5 mg, nebulization, Every 4 hours PRN, wheezing, Starting on Thu05/02/25 at 1151 ALPRAZolam (XANAX) tablet 0.5 mg 0.5 mg, oral, 3 times daily PRN, anxiety, Starting on Thu05/02/25 at 1151 ondansetron (PF) (ZOFRAN) injection 4 mg(Linked Group 1) 4 mg, intravenous, Every 8 hours PRN, vomiting, nausea, Starting on Thu05/02/25 at 1152, -ONLY give IV if patient is unable to take orally. -If inadequate response within 30 minutes, proceed to next-line agent or contact provider if no further options ordered. ondansetron ODT (ZOFRAN-ODT) disintegrating tablet 4 mg(Linked Group 1) 4 mg, oral, Every 8 hours PRN, vomiting, nausea, Starting on Thu05/02/25 at 1152, -Give IV if patient is unable to take orally. -If inadequate response within 30 minutes, proceed to next-line agent or contact provider if no further options ordered. For ODT tablets: -Do not remove from blister pack until just before administering. -Patient should allow tablet to dissolve on tongue. Linked Groups Order Group 1: ondansetron ODT (ZOFRAN-ODT) disintegrating tablet 4 mgJump to med 4 mg, oral, Every 8 hours PRN, vomiting, nausea, Starting on Thu05/02/25 at 1152, -Give IV if patient is unable to take orally. -If inadequate response within 30 minutes, proceed to next-line agent or contact provider if no further options ordered. For ODT tablets: -Do not remove from blister pack until just before administering. -Patient should allow tablet to dissolve on tongue. Or ondansetron (PF) (ZOFRAN) injection 4 mgJump to med 4 mg, intravenous, Every 8 hours PRN, vomiting, nausea, Starting on Thu05/02/25 at 1152, -ONLY give IV if patient is unable to take orally. -If inadequate response within 30 minutes, proceed to next-line agent or contact provider if no further options ordered. documented in this encounter Orders Medications Ordered That Mitesh ht Not Have Been Administered Count Last Ordered Date First Ordered Date predniSONE (DELTASONE) tablet 30 mg 1 05/04 acetaminophen (TYLENOL) tablet 650 mg 1 albuterol 2.5 mg /3 mL (0.08 3 %) nebulizer solution 2.5 mg 1 05/02/2025 ALPRAZolam (XANAX) tablet 0.5 mg 1 05/02/20 ondansetron (PF) (ZOFRAN) injection 4 mg 1 05/02/2025 ondansetron ODT (ZOFRAN-ODT) disintegrating tablet 4 mg 1 05/02/2025 predniSONE (DELTASONE) tablet 10 mg 1 05/02 revefenacin (YUPELRI) 175 mc g/3 mL nebulizer solution 175 mcg 1 05/02/2025 Isolation Count Last Ordered Date First Orde red Date INITIATE DROPLET ISOLATION 1 05/02/2025 DECATING MACHINE OPERATOR Count Last Ordered Date First Orde red Date DECATING MACHINE OPERATOR SWALLOW EVAL AND TREAT 1 05/02/2025 Admission Count Last Ordered Date First Orde red Date INITIATE OBSERVATION STATUS 1 05/02/2025 Transfer Count Last Ordered Date First Orde red Date ED TO FLOOR BED REQUEST 1 05/02/2025 TRANSFER PATIENT TO NEW UNIT 1 05/02/2025 Discharge Count Last Ordered Date First Orde red Date DISCHARGE PATIENT 1 05/04/2025 documented in this encounter Additional Health Concerns Infection Onset Date Last Indicated Resolved Time COVID-19 05/02/2025 05/02/2025 Respiratory Rule-Out 05/02/2025 05/02/2025 025 12:36 PM EDT documented as of this encounter Care Teams Candles Pourer Relationship Specialty Start Date End Date Karen Parsons NP [address] [facility] [place] [address] PCP - General 04/10/23 documented as of this encounter
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
--- OUTSIDE RECORDS SUMMARY | 2025-05-08 05:50 | XMS_ITS ---
Author Organization [address] Address [address] [place] [address] Phone Care Team Providers Care Consumer Banker Name Role Phone Karen Parsons NP Primary Care Provider [phone] Transitional Care Management Status:Closed (Closed) Start date:04/06/2025 Enrollment date:04/07/2025 Enrollment reason:Identified using hospital discharge data End date:05/05/2025 Close reason:Completed program Related social drivers of health:Access to Healthcare Continued Care and Services Coordination
--- OUTSIDE RECORDS SUMMARY | 2025-05-08 05:50 | XMS_ITS ---
Author Organization [facility] [address] [place] [address] Address [address] [place] [address] Phone Care Team Providers Care Assistant Counsel Name Role Phone Karen Parsons NP Primary Care Provider [phone] Chronic Care Management Status:Ongoing (Active) Start date:04/07/2025 Enrollment date:04/13/2025 Enrollment reason:Referred by Care Team Related social drivers of health:Housing Instability, Food Access & Nutrition, Access to Healthcare, TH Health Literacy, Financial Risk, Transportation, Social Isolation, Food Risk Case Team Name Relationship Phone Ethel Meeks RN(Responsible Staff) Assembly Person Continued Care and Services Coordination
--- OUTSIDE RECORDS SUMMARY | 2025-05-08 05:50 | XMS_ITS | Data Portability ---
Author Organization [facility], [address] Address [address] [place] [address] Care Team Providers Care Vocational Adviser Name Role Phone [facility] Care Provider Assessment No assessment recorded. Plan of Treatment Reminders Order Date Submit Date Provider Last Modified By Organization Details Last Modified Time Details Appointments None recorded. Lab None recorded. Referral None recorded. Procedures None recorded. Surgeries None recorded. Imaging XR, chest, 2 view 2022 023 [email or web address] [facility], [address] [facility] [place], [address], 3 14:14:22 Medication Orders amoxicillin 875 mg-potassiu m clavulanate 125 mg tablet 2022 023 [id number], [address] [place], [address], 3 14:11:33 prednisone 20 mg tablet 2022 023 [id number], [address] [place], [address], 3 14:11:34 azithromyci n 250 mg tablet 2022 023 [id number], [address] [place], [address], 3 14:11:35 Patient TargetsNo targets recorded. Patient Instructions Encounter Date Encounter Id Patient Instructions Last Modified By Organization Details Last Modified Time 11/13/2022 [id number] cough: care instructions [email or web address] Not available 11/13/2022 13:33:22 Treatment is antibiotics as prescribed, inhaler and cough medication as needed, supportive, including, rest, fluids, humidifier, and sometimes cough suppressants and/or nasal decongestants to help reduce symptoms until your body's immune system kills the virus and the both self-recovers Breathing warm, moist air helps loosen the sticky mucus that may make you feel like you are choking. Other things that may also help include: Placing a warm, wet washcloth loosely near your nose and mouth. Filling a humidifier with warm water and breathing in the warm mist. Coughing helps clear your airways. Take a couple of deep breaths, 2 to 3 times every hour. Deep breaths help open up your lungs. While lying down, tap your chest gently a few times a day. This helps bring up mucus from the lungs. If you smoke, now is the time to quit. Do not allow smoking in your home. Drink plenty of liquids, as long as your provider says it is OK. Drink water, juice, or weak tea. Drink at least 6 to 10 cups (1.5 to 2.5 liters) a day. Do not drink alcohol. Get plenty of rest when you go home. If you have trouble sleeping at night, take naps during the day. Go to Emergency room for new or worsening concerning symptoms. If breathing is: Getting harder Faster than before Shallow and you cannot get a deep breath Also call your provider if you have any of the following: Need to lean forward when sitting to breathe more easily Have chest pain when you take a deep breath Headaches more often than usual Feel sleepy or confused Fever returns Coughing up dark mucus or blood Fingertips or the skin around your fingernails is blue If symptoms worsen, return to clinic. If you develop any chest pain, worsening symptoms, worsening shortness of breath, fevers unrelieved with OTC tylenol or ibuprofen go to the nearest emergency room, or call 911. Contact office for any questions. Follow-up with your PCP in 2 weeks for a recheck. If you are not seeing improvement within 48-72 hours I would recommend a reevaluation with a chest xray. Recheck chest xray in 1 month with PCP is recommended to verify pneumonia has resolved. Not available 11/13/2022 14:10:15 If you have chronic obstructive pulmonary disease (COPD), your usual shortness of breath could suddenly get worse. You may start coughing more and have more mucus. This flare-up is called a COPD exacerbation A lung infection or air pollution could set off an exacerbation. Sometimes it can happen after being around chemicals. Work with your doctor to make a plan for dealing with an exacerbation. You can better manage it if you plan ahead. How can you care for yourself at home? During an exacerbation Do not panic if you start to have one. Quick treatment may help you prevent serious breathing problems. If you have a COPD exacerbation plan that you developed with your doctor, follow it. Take your medicines exactly as your doctor tells you. Use your inhaler as directed by your doctor. If your symptoms do not get better after you use your medicine, have someone take you to the emergency room. Call an ambulance if necessary. With inhaled medicines, a spacer or a nebulizer may help you get more medicine to your lungs. Ask your doctor or pharmacist how to use them properly. Practice using the spacer in front of a mirror before you have an exacerbation. This may help you get the medicine into your lungs quickly. If your doctor has given you steroid pills, take them as directed. Your doctor may have given you a prescription for antibiotics, which you can fill if you need it. Talk to your doctor if you have any problems with your medicine. And call your doctor or nurse advice line if you have to use your antibiotic or steroid pills. Preventing an exacerbation Do not smoke. This is the most important step you can take to prevent more damage to your lungs and prevent problems. If you already smoke, it is never too late to stop. If you need help quitting, talk to your doctor about stop-smoking programs and medicines. These may increase your chances of quitting for good. Take your daily medicines as prescribed. Avoid colds and other infections. Get an influenza (flu) vaccine each year, as soon as it is available. Ask those you live or work with to do the same, so they will not get the flu and infect you. Get the pneumococcal and whooping cough (pertussis) vaccines. Try to stay away from people with colds or the flu. Wash your hands often. Avoid second-hand smoke and air pollution. Try to stay inside with your windows closed when air pollution is bad. Learn breathing techniques for COPD, such as pursed-lip breathing. These techniques may help you breathe easier during an exacerbation. Follow up with primary care provider in one week as needed. To the ED with any worsening or concerning symptoms, chest pain, shortness of breath, fever not controlled with medication, severe abdominal pain. Return here in 4-5 days as needed or if symptoms have not improved. Not available 11/13/2022 13:33:31 Reason for Referral None Reported. Results Created Date Observation Date Name Description Value Unit Range Abnormal Flag Note LastModifiedBy Organization Detail LastModifiedTime 11/14/1911/13/2022 XR, chest , 2 view No observ ation record ed. [email or web address] [facility] [address] [place], [address], 11/13/2022 16:53:13 11/14/19 XR, chest , 2 view No observ ation record ed. [facility] [address] [place], [address], 11/13/2022 16:12:29 Result Notes None recorded. Problems Name Problem SNOMED Code Status Onset Date Resolution Date Notes Provider Name and Address Organization Details Recorded Time Chronic obstructive pulmonary disease 74303228 Active 2022 SAVANA DEPINTO null, PA - [facility] 3 11:49:01 Hypercholestero lemia 94412064 Active 2022 SAVANA EVELYNINTO null, PA - [facility] 3 11:54:46 Problem Notes None recorded. Procedures Surgical History Date Name Laterality Status Provider Name and Address Organization Details Recorded Time repair of filtering bleb by suture completed SAVANAVinh SIMMONSO PA - [facility] 11/13/2022 11:56:16 procedure on foot completed SAVANAVinh RIVASINTO PA - [facility] 11/13/2022 11:56:42 Imaging Results None recorded. Procedure Notes None recorded. Medical Equipment None Reported. Allergies No known drug allergies Medications Name Sig Start Date Stop Date Status Note LastModified by Organization Details LastModified Time furosemide 40 mg tablet TAKE 1 TABLET BY MOUTH EVERY DAY 11/13 completed Not Available Not Available Not Available prednisone 10 mg tablet TAKE 3 TABS FOR 3 DAYS, TAKE 2 TABS FOR 3 DAYS, TAKE 1 TAB FOR 3 DAYS active Not Available Not Available No t Available atorvastati n 20 mg tablet TAKE 1 TABLET BY MOUTH EVERY DAY active Not Available Not Available No t Available azithromyci n 250 mg tablet TAKE 2 TABLETS BY MOUTH TODAY, THEN TAKE 1 TABLET DAILY FOR 4 DAYS active Not Available Not Available No t Available benzonatate 200 mg capsule TAKE 1 CAPSULE BY MOUTH 3 TIMES DAILY NEEDED FOR COUGH. 11/13 completed Not Available Not Available Not Available valacyclovi r 1 gram tablet TAKE 1 TABLET BY MOUTH THREE TIMES A DAY 11/13 completed Not Available Not Available Not Available prednisone 20 mg tablet TAKE 2 TABLETS EVERY DAY BY ORAL ROUTE IN THE MORNING FOR 4 DAYS. active Not Available Not Available No t Available sildenafil 100 mg tablet TAKE 1 TABLET BY MOUTH EVERY DAY NEEDED active Not Available Not Available No t Available alprazolam 0.5 mg tablet TAKE 1 TABLET BY MOUTH UP TO 3 TIMES A DAY, ONLY NEEDED active Not Available Not Available No t Available Advair Diskus 500 mcg-50 mcg/dose powder for inhalation INHALE 1 PUFF INTO THE LUNGS 2 TIMES DAILY FOR 30 DAYS. active Not Available Not Available No t Available hydrocortis one 2.5 % topical cream TOPICAL APPLY TO THE AFFECTED AREA OF SKIN TWICE DAILY NEEDED active Not Available Not Available No t Available montelukast 10 mg tablet TAKE 1 TABLET BY MOUTH EVERY NIGHT AT BEDTIME. active Not Available Not Available No t Available amoxicillin 875 mg-potassiu m clavulanate 125 mg tablet TAKE 1 TABLET BY MOUTH EVERY 12 HOURS WITH MEALS FOR 10 DAYS active Not Available Not Available No t Available roflumilast active Not Available Not A vailable Not Available Incruse Ellipta 62.5 mcg/actuati on powder for inhalation INHALE 1 PUFF BY MOUTH DAILY active Not Available Not Available No t Available Tiadylt ER 120 mg capsule,ext ended release TAKE 1 CAPSULE BY MOUTH EVERY DAY active Not Available Not Available No t Available Vitals Date Recorded Body height Body mass index (BMI) Body weight Pain severity - 0-10 verbal numeric rating [Score] - Reported Respiratory rate Body temperature Oxygen saturation Oxygen saturation in Arterial blood by Pulse oximetry Heart rate Systolic And Diastolic Provider Name and Address Organization Details Last Updated DateTime 3 172.72 cm 29.6 kg/m2 90444.5 1 g 4 18 /min 97.6 [degF] 96 % 96 % 100 /min 122/78 mm[Hg] SAVANA SIMMONSO PA - [facility] 3 11:57:45 Social History Question Answer Notes LastModified by Freeze Tag Details LastModified Time Tobacco Smoking Status Former Smoker SAVANA SIMMONSO null, PA - [facility] 11/13/2022 11:55:22 When Did You Quit Smoking? 1-5yearssin bernard garcia 1999 Quit Information not available 11/13/2022 Have You Recently Traveled Abroad? No Information not available 11/13/2022 Sex: Unknown Functional Status Question Answer Note LastModified by [employer] Details LastModified Time Do you use any illicit or recreational drugs? No Information not available 11/13/2022 Do you or have you ever used any other forms of tobacco or nicotine? No Information not available 11/13/2022 What is your level of alcohol consumption? None Information not available 11/13/2022 Mental Status None recorded. Family History Relationship Description Onset Age of this Age Resolved Age Notes LastModified by Organization Details LastModified Time Father No current problems or disability Not available 11/13 11:54:48 Mother No current problems or disability Not available 11/13 11:54:48 Medical History No medical history recorded. Immunizations Vaccine Type Date Status Note Provider Nam e and Address Organization Details Recorded Time Influenza, split virus, quadrivalent, preservative 8 completed SAVANA DEPINTO null, PA - [facility] 11/13/2022 11:51:19 Influenza, high-dose, quadrivalent, PF 2 completed SAVANA DEPINTO null, PA - [facility] 11/13/2022 11:51:19 COVID-19, mRNA, LNP-S, PF, 30 mcg/0.3 mL dose 1 completed SAVANA DEPINTO null, PA - [facility] 11/13/2022 11:51:19 COVID-19, mRNA, LNP-S, PF, 30 mcg/0.3 mL dose 1 completed SAVANA DEPINTO null, PA - [facility] 11/13/2022 11:51:19 COVID-19, mRNA, LNP-S, PF, 30 mcg/0.3 mL dose 1 completed SAAVNA DEPINTO null, PA - [facility] 11/13/2022 11:51:19 COVID-19, mRNA, LNP-S, PF, 30 mcg/0.3 mL dose 2 completed SAVANA DEPINTO null, PA - [facility] 11/13/2022 11:51:19 COVID-19, mRNA, LNP-S, PF, 30 mcg/0.3 mL dose, gabbi-sucrose 2 completed SAVANA DEPINTO null, PA - [facility] 11/13/2022 11:51:19 COVID-19, mRNA, LNP-S, bivalent, PF, 30 mcg/0.3 mL dose 2 completed SAVANA DEPINTO null, PA - [facility] 11/13/2022 11:51:19 Influenza, split virus, trivalent, PF 5 completed SAVANA DEPINTO null, PA - [facility] 11/13/2022 11:51:19 Past Encounters Encounter ID Performer Location Encounter Start Date Encounter Closed Date Diagnosis/Indication Diagnosis SNOMED-CT Code Diagnosis ICD10 Code Diagnosis IMO Codes Diagnosis Note [id number] [address] [place] [address] 12/13/2021 12:22:47 12/13/2021 15:33:14 [id number] [address] [place] [address] 04/15/2020 14:41:19 04/15/2020 17:15:12 [id number] [address] [place] [address] 07/16/2019 15:47:45 07/16/2019 16:51:03 [id number] [address] [place] [address] 01/21/2019 16:13:32 01/21/2019 16:50:35 [id number] [address] [place] [address] 04/01/2019 16:39:12 04/01/2019 17:34:14 [id number] [address] [place] [address] 10/23/2019 18:08:46 10/23/2019 18:56:34 [id number] [address] [place] [address] 11/17/2018 17:35:33 11/17/2018 19:55:39 [id number] Raheem Real NP [address] [place] [address] 11/13/2022 09:04:26 11/13/2022 14:14:22 Acute exacerbation of chronic obstructive pulmonary disease 844367811 J44.1 Pneumonia 182780059 J18. 9 Health Concerns Section Related Observation LastModified by Organization Detai ls LastModified Time None Recorded Concern Status LastModified by Organization Details LastModified Time None Recorded Advance Directives Directive None Recorded Payers Insurance Date Sequence Insurance Name Policy Number Policy Eason Covered Member ID Eason Member ID Guarantor Name 11/13/2022 1 [place] [employer] Mervin Christian [id number] Mervin Christian 11/13/2022 2 [place] [id number] Mervin Christian [id number] Mervin Christian Notes Date Note Type Note Provider Name and Address Organization Details Recorded Time 3 text/html CoughReported by PatientHPIFor quality, patient reportsharshbut reportssymptoms worse with lying down. For severity, patient reportsworseningbut reportsmoderate. For timing, patient reportsworseningbut reportssudden. For context, patient reportshistory of bronchitisbut reportspatient denies vapingandnon-smoker. For associated symptoms, patient reportscan't get a deep breathbut reportsno fever,no chills,no chest pain,no heartburn,no nausea,no vomiting,no edema,no agitation,no wheezing, andno post nasal drip. For source of patient information, patient reportsinformation obtained from patient,patient arrived at urgent care ambulatory, andlearning styles: auditory. For duration, patient reportsconstant. For modifying factors, patient reportscough suppressant. Raheem Real NP [address] [place], [address], [place] - [facility] 11/13/2022 14:13:46
--- OUTSIDE RECORDS SUMMARY | 2025-05-08 05:50 | XMS_ITS | Encounter Summary ---
Author Organization [facility] Address [address] [place] [address] Care Team Providers Care Professional Fighter Name Role Phone Karen Parsons MAGISTERIAL DISTRICT JUDGE Primary Care Provider [phone] Reason for Visit * Reason Onset Date Comments Faxed Order 04/11/2025 [facility] ([id number] [phone]) Encounter Details Date Type Department Care Team (Late st Contact Info) Description 04/11/2025 Telephone Internal Medicine - [facility] [address] [place], [place] [phone] Karen Parsons NP [address] [place] [address] Social History Tobacco Use Types Packs/Day Years [...] care for your loved ones. For example, childhood teacher or elderly care for an older adult? [...] Progress Notes * Abbie Mueller MA - 04/11/2025 4:30 PM EDT Document signed and faxed * Gloriakishor [place] - 04/11/2025 2:27 PM EDT Faxed order received from [facility]. Orders placed in Karen Parsons NP bin for signing, please fax to [phone] thank you documented in this encounter Plan of Treatment Upcoming Encounters Date Type Department Care Team (Late st Contact Info) Description 05/24/2025 10:45 AM EST Office Visit Pulmonology - [place] [address] [facility] [address] [place] [address] Ashleigh Anguiano MD [address] [facility] [address] [place] [address] 05/26/2025 10:45 AM EST Office Visit Internal Medicine - [facility] [address] [place] [address] Karen Parsons NP [address] [facility] [place] [address] documented as of this encounter Goals Goal Patient Goal Type Associated Problems Recent Progress Patient-Stated? Author Pt to bring all medication into PCP appt on 04/14/2025 General Yes Ethel Meeks RN documented as of this encounter Visit Diagnoses Not on filedocumented in this encounter Additional Health Concerns Infection Onset Date Last Indicated Resolved Time Respiratory Rule-Out 04/21/2025 04/21/2025 025 10:27 AM EDT COVID-19 05/02/2025 05/02/2025 Respiratory Rule-Out 05/02/2025 05/02/2025 025 12:36 PM EDT documented as of this encounter Care Teams Professional Fighter Relationship Specialty Start Date End Date Karen Parsons NP [address] [place] [address] PCP - General 04/10/23 documented as of this encounter
--- OUTSIDE RECORDS SUMMARY | 2025-05-08 05:51 | XMS_ITS | Encounter Summary ---
Author Organization [facility] Address [address] [place] [address] Care Team Providers Care Manager Technical Name Role Phone Karen Parsons HEARING SCREENER Primary Care Provider [phone] Reason for Visit * Reason Onset Date Comments requesting a call back 04/19/2025 Encounter Details Date Type Department Care Team (Late st Contact Info) Description 04/19/2025 Telephone Internal Medicine - [facility] [address] [place] [address] Karen Parsons NP [address] [place] [address] Social History Tobacco Use Types Packs/Day Years [...] care for your loved ones. For example, child care giver or elderly care for an older adult? [...] AM EST documented as of this encounter Functional Status * Calculated C-SSRS Risk Score (Lifetime/Recent) Answer Date of Assessment Author No Risk Indicated 04/21/2025 8:10 AM EDT Nicolette Henry RN * Charlo Suicide Severity Rating Scale (Screener/Recent Self-Report) Question Answer Date of Assessment Author 1. Wish to be (Past 1 Month) No 025 8:10 AM EDT Nicolette Henry RN 2. Non-Specific Active Suici alec Thoughts (Past 1 Month) No 04/21/2025 8:10 AM EDT Kellee Henry RN 6. Suicidal Behavior (Lifetime) No 8:10 AM EDT Nicolette Henry RN documented as of this encounter Progress Notes * Abbie Mueller MA - 04/19/2025 4:25 PM EDT Pt was told we have no control of what VNA does. If his breathing is getting worse Advised to contact pulmonology. * Karen Parsons NP - 04/19/2025 4:17 PM EDT I agree that it would be ideal that the VNA check his lung sounds but again as stated we do not have control over what the VNA does. He has abnormal lung sounds at baseline so it is unclear how helpful their assessment would be, it is more important for him to contact his pulmonology team if his breathing becomes worse. * Jazzy Huynh RN - 04/19/2025 4:05 PM EDT Spoke with the patient stated he has a VNA coming in once a week. Stated she took his blood pressure went over his medications and left. He feels they need to be listening to his lungs. He wants to know how does he get someone who does this . Explained we don't have any control over the VNA or whatthey do in someone's home . He is concerned they aren't monitoring his lung condition and doesn't want to get worse Please review and advise thank you * Alecia Hitesh - 04/19/2025 3:18 PM EDT Pt says he has copd and had a vna come to his house to check his blood pressure. He's requesting tospeak to someone because he feels like his condition is much more serious than having a nurse come to his home just to check his bp. He says he already went to his [facility]. On 04/17. He doesn't know what to do next. I did ask him if he spoke to his [facility] about this but pt says between s robert and karen they changed his med. [phone] documented in this encounter Plan of Treatment Upcoming Encounters Date Type Department Care Team (Late st Contact Info) Description 05/24/2025 10:45 AM EST Office Visit Pulmonology - [place] [address] [address] Ashleigh Anguiano MD [address] [facility] [address] [place] [address] 05/26/2025 10:45 AM EST Office Visit Internal Medicine - [facility] [address] [place] [address] Karen Parsons NP [address] [place] [address] documented as of this encounter Goals Goal Patient Goal Type Associated Problems Recent Progress Patient-Stated? Author Pt to bring all medication into PCP appt on 04/14/2025 General Yes Ethel Meesk RN documented as of this encounter Visit Diagnoses Not on filedocumented in this encounter Additional Health Concerns Infection Onset Date Last Indicated Resolved Time Respiratory Rule-Out 04/21/2025 04/21/2025 025 10:27 AM EDT COVID-19 05/02/2025 05/02/2025 Respiratory Rule-Out 05/02/2025 05/02/2025 025 12:36 PM EDT documented as of this encounter Care Teams Manager Technical Relationship Specialty Start Date End Date Karen Parsons NP [address] [place] [address] PCP - General 04/10/23 documented as of this encounter
--- OUTSIDE RECORDS SUMMARY | 2025-05-08 05:51 | XMS_ITS | Encounter Summary ---
Author Organization [facility] Address [address] [place] [address] Care Team Providers Care Web User Experience Strategist Name Role Phone IssaRashaun griffithsdominic MORRISON Primary Care Provider [phone] Reason for Visit * Reason Onset Date Comments provider call back 05/04/2025 Encounter Details Date Type Department Care Team ([facility] st Contact Info) Description 05/04/2025 Telephone Pulmonology - [place] [address] [facility] [address] [place] [address] Ashleigh Anguiano MD [address] [facility] [address] [place] [address] Social History Tobacco Use Types Packs/Day Years [...] Record ed Within the last 3 months, anna w many times did you visit the [...] care for your loved ones. For example, child's nurse or elderly care for an older adult? [...] as of this encounter Progress Notes * Ashleigh Anguiano MD - 05/04/2025 4:21 PM EDT Call message full * Bessie Herman - 05/04/2025 9:30 AM EDT Admitted at [facility] but talking about possible discharge. Daugher would like to speak with you to go over visit/discharge/chart documented in this encounter Plan of Treatment Upcoming Encounters Date Type Department Care Team (Late st Contact Info) Description 05/24/2025 10:45 AM EST Office Visit Pulmonology - [place] [address] [place] [address] Ashleigh Anguiano MD [address] [place] [address] [place] [address] 05/26/2025 10:45 AM EST [facility] [address] [place] [address] Karen Parsons NP [address] [place] [address] documented as of this encounter Goals Goal Patient Goal Type Associated Problems Recent Progress Patient-Stated? Author Pt to bring all medication into PCP appt on 04/14/2025 General Yes Ethel Meeks RN documented as of this encounter Visit Diagnoses Not on filedocumented in this encounter Additional Health Concerns Infection Onset Date Last Indicated Resolved Time COVID-19 05/02/2025 05/02/2025 documented as of this encounter Care Teams Web User Experience Strategist Relationship Specialty Start Date End Date Karen Parsons NP [address] [place] [address] PCP - General 04/10/23 documented as of this encounter
--- OUTSIDE RECORDS SUMMARY | 2025-05-08 05:51 | XMS_ITS ---
Author Organization [address] Address [address] [place] [address] Phone Care Team Providers Care Car Trimmer Name Role Phone Karen Parsons NP Primary Care Provider [phone] Post Acute Care Coordination Status:Ongoing (Active) Start date:05/04/2025 Enrollment date:05/04/2025 Enrollment reason:Post acute care coordination Related social drivers of health:Access to Healthcare Case Team Name Relationship Phone Paty Kaur RN(Responsible Staff) Post Acute Chip Crusher Operator Continued Care and Services Coordination
--- OUTSIDE RECORDS SUMMARY | 2025-05-08 05:51 | XMS_ITS ---
Author Name [facility] Organization Unknown Care Team Organization Name Specialty Phone Email Start Date End Da te [facility] ACO 03/08/[address] [facility] OSITO ZAMORA Primary Care [email or web address] 07/01/2023 03/07/[address] [facility] Farnaz Hunter Primary Care 03/26/2023 03/07/2024
--- OUTSIDE RECORDS SUMMARY | 2025-05-08 05:51 | XMS_ITS | Encounter Summary ---
Author Organization [facility] Address [address] [place] [address] Care Team Providers Care Compactor Driver Name Role Phone Karen Parsons NP Primary Care Provider [phone] Reason for Visit * Reason Onset Date Comments Hospital Follow-up 04/06/2025 Encounter Details Date Type Department Care Team (Late st Contact Info) Description 04/06/2025 Telephone Internal Medicine - [place] [address] [place], [place] [phone] Karen Parsons NP [address] [place] [address] Social History Tobacco Use Types Packs/Day Years [...] your loved ones. 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 [...] 7:37 AM EDT Sunita Jarvis RN * [place] Suicide Severity Rating Scale (Screener/Recent Self-Report) Question Answer Date of Assessment Author 1. Wish to be (Past 1 Month) No 025 7:37 AM EDT Sunita Jarvis RN 2. Non-Specific Active Suici alec Thoughts (Past 1 Month) No 05/02/2025 7:37 AM EDT Nataly Jarvis RN 6. Suicidal Behavior (Lifetime) No 7:37 AM EDT Sunita Jarvis RN documented as of this encounter Progress Notes * Peg Clement MA - 04/06/2025 2:06 PM EDT Called patient and appt made, he will call pulm too to follow up, taking discharge meds. * Lorena Worthington - 04/06/2025 1:51 PM EDT Hospital/ER follow up appointment needed Hospital patient was treated at: [facility] Was this only an ER visit or was the patient admitted to the hospital? Admitted to the hospital/kept overnight Date of visit if ER visit only: n/a If patient was admitted what was the date of discharge? 04/06/25 Reason/diagnosis for visit or stay: COPD When was the patient told to follow up? With in 7 days Was visit or stay related to an injury? If yes, what was the date of injury (DOI)? No If yes, was the injury due to: Not 3rd green party related documented in this encounter Plan of Treatment Upcoming Encounters Date Type Department Care Team (Late st Contact Info) Description 05/24/2025 10:45 AM EST Office Visit Pulmonology - [place] [address] [facility] [address] [place] [address] Ashleigh Anguiano MD 175 [facility] [place] [address] [place] [address] 05/26/2025 10:45 AM EST [facility] [address] [place] [address] Karen Parsons NP [address] [place] [address] documented as of this encounter Goals Goal [...] documented as of this encounter Care Teams Compactor Driver Relationship Specialty Start Date End Date Karen Parsons NP [address] [place] [address] PCP - General 04/10/23 documented as of this encounter
--- OUTSIDE RECORDS SUMMARY | 2025-05-08 05:51 | XMS_ITS | Clinical Summary ---
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 6.7 g 11 024 2024 Active montelukast (SINGULAIR) 10 mg tabletIndicatio ns:Emphysema, unspecified (CMS/HCC V24, CMS/HCC V28) TAKE 1 TABLET BY MOUTH EVERY NIGHT AT BEDTIME. 30 tablet 10 025 Active roflumilast (DALIRESP) 500 mcg tablet Take 1 tablet (500 mcg total) by mouth 1 (one) time each day. 30 each 11 025 2025 Active sildenafiL (VIAGRA) 50 mg tablet Take 1 tablet (50 mg total) by mouth 1 (one) time each day if needed for erectile dysfunction. 12 tablet 3 025 2025 Active ALPRAZolam (XANAX) 0.5 mg tablet Take 1 tablet (0.5 mg total) by mouth 3 (three) times a day if needed for anxiety. Max Daily Amount: 1.5 mg 56 tablet 2 Active Eliquis 5 mg tablet TAKE 1 TABLET BY MOUTH TWICE A DAY 60 tablet 5 Active Incruse Ellipta 62.5 mcg/actuation inhalation INHALE 1 PUFF INTO THE LUNGS DAILY FOR 30 DAYS. 30 each 11 Active cholecalciferol (VITAMIN D-3) 50 mcg (2,000 unit) tablet TAKE 1 TABLET BY MOUTH EVERY DAY 90 tablet 1 Active dilTIAZem LA (CARDIZEM LA) 240 mg 24 hr tabletIndicatio ns:Unspecified atrial fibrillation (CMS/HCC V24, CMS/HCC V28) TAKE 1 TABLET BY MOUTH EVERY DAY 90 tablet 1 Active azithromycin (Zithromax) 500 mg tablet Take 1 tablet (500 mg total) by mouth 3 (three) times a week. 14 each 2 025 2025 Active atorvastatin (LIPITOR) 20 mg tablet TAKE 1 TABLET BY MOUTH EVERY DAY 90 tablet 1 Active fluconazole (DIFLUCAN) 200 mg tablet Take 1 tablet (200 mg total) by mouth 1 (one) time each day for 12 days. 2024 Active ipratropium-alb uteroL (DUONEB) 0.5-2.5 mg/3 mL nebulizer solution Take 3 mL by nebulization 4 (four) times a day. 2025 Active predniSONE (DELTASONE) 10 mg tablet Take 3 tablets (30 mg total) by mouth 1 (one) time each day for 2 days, THEN 2 tablets (20 mg total) 1 (one) time each day for 2 days, THEN 1 tablet (10 mg total) 1 (one) time each day. 370 each 025 2025 Active oxyCODONE-aceta minophen (PERCOCET) 5-325 mg per tablet Take by mouth. PRN 2024 Discontinued(T herapy completed) atorvastatin (LIPITOR) 20 mg tablet TAKE 1 TABLET BY MOUTH EVERY DAY 90 tablet 1 025 2024 Discontinued azithromycin (ZITHROMAX) 250 mg tablet Take 1 tablet (250 mg total) by mouth 3 (three) times a week. 36 each 3 025 2024 Discontinued predniSONE (DELTASONE) 5 mg tablet TAKE 1 TABLET BY MOUTH EVERY DAY. 90 tablet 1 025 2024 Discontinued(E ntered in Error) predniSONE (DELTASONE) 10 mg tablet Take 5 [...] (10 mg total) 1 (one) time each day for 2 days. 30 tablet 2024 Discontinued doxycycline (VIBRAMYCIN) 100 mg capsule Take 1 capsule (100 mg total) by mouth 2 (two) times a day for 5 days. Take with at least 8 ounces (large glass) of water, do not lie down for 30 minutes after. Administer 2 hours before or after multivitamins, antacids, or other products containing polyvalent cations (i.e., calcium, iron, magnesium, selenium, zinc). 10 each 2024 Discontinued predniSONE (DELTASONE) 10 mg tablet Take 1 tablet (10 mg total) by mouth 1 (one) time each day. 30 each 1 2024 Discontinued dexAMETHasone (DECADRON) 2 mg tablet Take 2 tablets (4 mg total) by mouth 1 (one) time each day for 4 days. 8 each 2024 Discontinued(T herapy completed) predniSONE (DELTASONE) 10 mg tablet Take 1 tablet (10 mg total) by mouth 1 (one) time each day. 2024 Discontinued(S top Taking at Discharge) fluticasone propion-salmete roL (ADVAIR DISKUS) 500-50 mcg/dose diskus inhaler Inhale 1 puff by mouth 2 (two) times a day. Rinse mouth with water after use to reduce aftertaste and incidence of candidiasis. Do not swallow. 2024 Discontinued(T herapy completed) predniSONE (DELTASONE) 10 mg tablet Take 5 [...] mg total) 1 (one) time each day. 025 2024 Discontinued Active Problems Problem Noted Date Diagnosed Date Candidiasis of esophagus ([facility] V24, [facility] V 28) 05/04/2025 COPD (chronic obstructive pu lmonary disease) ([facility] V24, [facility] V28) 05/02/2025 Acute hypoxemic respiratory failure ([facility] V24, [facility] V28) 04/21/2025 Acute on chronic respiratory failure with hypoxia and hypercapnia ([facility] V24, [facility] V28) 04/05/2025 Multiple subsegmental pulmon rajni emboli without acute cor pulmonale ([facility] V24, [facility] V28) 12/11/2023 Hypercholesterolemia 10/12/2023 Type 2 diabetes mellitus wit hout complication, without long-term current use of insulin ([facility] V24, [facility] V28) 10/12/2023 Anxiety 07/06/2023 Paroxysmal atrial fibrillation ([facility] V24, [facility] V28) 02/16/2023 Overview (05/06/2024): Paroxysmal atrial fibrillation Pulmonary emphysema ([facility] V24, [facility] V28) 0 12/10/2022 Renal mass, left 09/12/2021 Overview (05/06/2024): Last Assessment & Plan: The patient has an incompletely characterized left renal hypodense mass seen on chest CT. Per the patient's report that has not been investigated further with dedicated abdominal imaging or ultrasound. I will order a renal ultrasound to be done to further evaluate this mass with results to be sent to Dr. Pabon for follow-up. I instructed the patient to call Dr. Pabon's office once he has the date and time of his ultrasound so that he may set up a follow-up appointment. Pulmonary nodules 06/18/2021 Overview (05/06/2024): Last Assessment & Plan: Mr. Vasques is a 73-year-old male who we have been following for multiple bilateral pulmonary nodules. His most recent chest CT scan was performed in August 2023 shows stability of his pulmonary nodules in particular a 7 mm pleural-based nodule in the left lower lobe. There are no new or worsening pulmonary nodules or mediastinal lymphadenopathy to suggest carcinoma at this time nor does patient have any signs or symptoms of lung cancer. His next chest CT scan will be due in 12 months which will be August 2024 and have a visit at the thoracic surgical department thereafter to discuss results. Assessment & Plan (12/04/2024 1:34 PM EDT): Mr. Christian is a 74-year-old male who has been being followed by this office for bilateral pulmonary nodules. Of note the patient does have a history of bilateral bullectomy's performed in the . He has been being followed by thoracic surgical department since 2020 for bilateral pulmonary nodules ranging in size from 3 to 7 mm which have remained stable. Patient is a former smoker who quit smoking 25 years ago and requires the use of supplemental oxygen 2 L nasal cannula at all times. He does see his supervisor rework Dr. Anguiano and states that his COPD has worsened over the past year with significant CRAFT and hypoxia with oxygen saturations at 83% when he is not using his oxygen. While patient was in office we did review his most recent chest CT scan which was performed on November 23, 2024 at and shows stable bilateral nodules ranging from 5 mm to 7 mm in size with no new or worsening pulmonary nodules or mediastinal lymphadenopathy. Patient does inform me that he continues to follow-up with Dr. Anguiano approximately every 2 months and has been getting CAT scans at least twice a year when he has emergency department visits for his severe emphysema and at this point in time he is requesting to just continue to follow with Dr. Anguiano since his nodules have been stable since 2020 I do believe this is a reasonable request. He was instructed to continue to follow with pulmonology and to contact the thoracic surgery department in the future should he have any questions or concerns arise he will follow-up with our department on a as needed basis. Encounters Date Type Department Care Team Description 05/04/2025 Telephone Pulmonology - [address] [phone] Ashleigh Anguiano MD 05/02/2025 7:20 AM EDT - 05/04/2025 4:38 PM EDT Hospital Encounter [facility] Care [address] [place] [phone] Dano Gaspar MD Bukalo, Nermina, MD Santoyo-Pacheco, Omar D, MD Seralathan, Manikandan, MD COPD exacerbation (CMS/HCC V24, CMS/HCC V28) (Primary Dx) Discharge Disposition: [facility] Facility 05/01/2025 Telephone Internal Medicine - [facility] [address] [place] [address] Karen Parsons NP 04/26/2025 Telephone Pulmonology - [address] [phone] Jose Luis Awan [place] 04/25/2025 Telephone Internal Medicine - [facility] [address] [place] [address] Karen Parsons NP 04/24/2025 Telephone Internal Medicine - [facility] [address] [place] [phone] Karen Parsons NP 04/21/2025 8:03 AM EDT - 04/25/2025 12:06 PM EDT Hospital Encounter [facility] [address] [place] [phone] Karen Cr MD Muhoozi, Bannet, MD Flores, Carlos M, MD Kokosadze, Estate, MD Kela, Kashyap Devendrabhai, MD COVID (Primary Dx); Chest pain, unspecified type; COPD exacerbation (CMS/[facility] V24, [facility] V28) Discharge Disposition: Home-Health Care [facility] 04/19/2025 Telephone Internal Medicine - [address] [phone] Karen Parsons NP 04/17/2025 8:45 AM EDT Office Visit Pulmonology - [place] [address] [place] [address] Ashleigh Anguiano MD Pulmonary emphysema, unspecified emphysema type ([facility] V24, [facility] V28) (Primary Dx); Acute on chronic respiratory failure with hypoxia and hypercapnia ([facility] V24, [facility] V28); Multiple subsegmental pulmonary emboli without acute cor pulmonale ([facility] V24, [facility] V28); Hypoxemia 04/14/2025 9:30 AM EDT Office Visit Internal Medicine [address] [phone] Karen Parsons NP Hospital discharge follow-up (Primary Dx); Acute on chronic respiratory failure with hypoxia ([facility] V24, [facility] V28); COPD exacerbation ([facility] V24, [facility] V28); Lower extremity edema; Paroxysmal atrial fibrillation ([facility] V24, [facility] V28) 04/12/2025 Telephone Internal Medicine [address] [phone] Karen Parsons NP 04/12/2025 Billing Patient Not Present Internal Medicine [address] [phone] Karen Parsons NP Acute on chronic respiratory failure with hypoxia and hypercapnia ([facility] V24, [facility] V28) (Primary Dx); Chronic obstructive pulmonary disease with (acute) exacerbation ([facility] V24, [facility] V28); Atrial fibrillation, unspecified type ([facility] V24, [facility] V28); Hyperlipidemia, unspecified hyperlipidemia type; Other thrombophilia ([facility] V24); snf (current) use of anticoagulants 04/11/2025 [facility] [address] [place] [address] Karen Parsons, TAMIKO 04/10/2025 Telephone [facility] [phone] Karen Parsons NP 04/07/2025 Telephone [facility] - [facility] [phone] Marissa Mendez RN 04/06/2025 Telephone Internal Medicine - [address] [phone] Karen Parsons NP 04/05/2025 12:38 AM EDT - 04/06/2025 12:36 PM EDT Hospital Encounter Intermediate Care Unit [facility] [address] [place] [phone] Malathi Swain MD Jones, Christopher, MD Surendran, Anupama, MD COPD exacerbation ([facility]/HCC V24, CMS/HCC V28) (Primary Dx); Shortness of breath; Unspecified atrial fibrillation (CMS/HCC V24, CMS/HCC V28); Acute on chronic respiratory failure with hypoxia and hypercapnia (CMS/HCC V24, CMS/HCC V28) Discharge Disposition: Home-Health Care [facility] 03/01/2025 8:45 AM EDT Office Visit Pulmonology [facility] [address] [phone] Ashleigh Anguiano MD Chronic respiratory failure with hypoxia and hypercapnia (CMS/HCC V24, CMS/HCC V28) (Primary Dx); Multiple subsegmental pulmonary emboli without acute cor pulmonale (CMS/HCC V24, CMS/HCC V28) 02/27/2025 Telephone Pulmonology [facility] [address] [phone] Ashleigh Anguiano MD 02/13/2025 Telephone [facility] [address] [place] [phone] Karen Parsons, TAMIKO from Last 3 Months Immunizations Immunization Administration Dates Next Due COVID-19 (Moderna/Spikevax) 12yo and older 03/29/2024,04/21/2023 Influenza Quadravalent, 0.5m l (Fluad) 65yo and older 04/01/2023 Influenza Quadravalent, 0.5m l (Fluzone High-dose) 65yo and older 04/30/2022 Influenza Quadrivalent, with preservative (Fluzone; Afluria) 6mo and older 05/04/2018 Influenza trivalent, 0.5mL ( Fluad) 65yo and older 04/27/2025,03/29/2024 Influenza trivalent, 0.5mL ( Fluzone High-dose) 65yo and older 03/29/2024 Influenza trivalent, 0.5mL, preservative free (Fluarix; FluLaval; Fluzone) ages 6mo and older (Afluria) 3 years and older 05/04/2018,06/04/2015 Influenza, Unspecified 04/01/2023 Moderna SARS-CoV-2 COVID-19, mRNA, LNP-S, preservative free 04/21/2023 Pfizer (ages 12 & older) Biv alent, COVID-19 05/15/2022 Pfizer (ages 12 & older) JORDEN S-CoV-2 COVID-19, mRNA, LNP-S, gabbi-sucrose, preservative free 01/18/2022 Pfizer SARS-CoV-2 COVID-19, mRNA, LNP-S, preservative free 03/29/2024,02/19/2023,05/10/2022,01/18 Pneumococcal conjugate 20 va lent (Prevnar 20, PCV 20) 2mo and older 10/13/2023 Pneumococcal polysaccharide 23 valent (Pneumovax 23) 2yo and older 10/13/2023,11/24/2017 RSV, bivalent, protein subun it RSVpreF, 0.5mL, Preservative Free (Arexvy) 50yo and older 10/13/2023,09/26/2023 Tdap Tetanus diptheria acell ular pertussis (Boostrix; Adacel) 7yo and older 02/16/2023 Surgical History Surgery Date Site/Laterality Comments FOOT SURGERY Right PROCEDURE: [place] UNLISTED PROCEDURE FOOT/TOES Medical History Medical History Date Comments Pulmonary nodules DX:Pulmonary n odules COPD (chronic obstructive pu lmonary disease) ([facility] V24, [facility] V28) DX:COPD (chronic o bstructive pulmonary disease) ([facility]) Atrial fibrillation ([facility] V24, [facility] V28) DX:Atrial fibrillation (HCC) Generalized anxiety disorder DX: Generalized anxiety disorder Mixed hyperlipidemia DX:Mixed hy perlipidemia Pulmonary embolism ([facility] V24, [facility] V28) Hypertension Chronic hypoxic respiratory failure ([facility] V24, [facility] V28) NOCTURNAL BIPAP Family History Medical History Relation Name Comments Other: Other Brother x2 one from c ancer unsure olf type, other from intestinal. issues No Known Problems Daughter Ulcers Father Breast cancer Mother Diabetes Mother kidney failure Heart attack Sister No Known Problems Son Relation Name Status Comments Brother x2 Daughter Alive Father Mother Sister Son Alive Social History Tobacco Use Types Packs/Day Years [...] ed Within the last 3 months, ho nelly many times did you visit the emergency [...] for your loved ones. For example, child and adolescent psychologist or elderly care for an older adult? [...] Orientation Straight 08/11/2024 11 :14 AM EST Obstetrics History Last Filed Vital Signs Vital Sign Reading [...] Mass Index 30.11 05/02/2025 7:37 AM EDT Plan of Treatment Upcoming Encounters Date Type Department Care Team (Late st Contact Info) Description 05/24/2025 10:45 AM EST Office Visit Pulmonology - [place] [address] [place] [phone] Ashleigh Anguiano MD [address] [place] [address] 05/26/2025 10:45 AM EST Office Visit Internal Medicine - [facility] [address] [place] [phone] Karen Parsons NP [address] [place] [address] Health Maintenance Due Date Last Done Comments Diabetes: Annual Foot Exam 1961 Zoster Vaccines (1 of 2) 2001 Abdominal Aortic Aneurysm (AAA) Screen 06/22/2022 Depression Screening 07/20/2024 02/29/2024 Diabetes: Annual Retina Eye Exam 08/20/2024 08/20/2023 Diabetes: Annual Urine Albumin-Creatinine Ratio (uACR) 10/11/2024 10/12/2023 Medicare Annual Wellness Visit 02/28/2025 02/29/2024 COVID-19 Vaccine ( season) 2025 03/29/2024, 03/29/2024, 09/26/2023, Additional history exists Diabetes: Blood Sugar Control Test (HGBA1C) 04/16/2025 10/14/2024, 07/15/2024, 03/09/2024, Additional history exists Social Influencers of Health Screening 04/13/2026 04/13/2025 Colorectal Cancer Screening: Stool Based Tests (FOBT/FIT) 05/03/2026 05/03/2025 Diabetes: Annual GFR (Glomerular Filtration Rate) 05/04/2026 05/04/2025, 05/03/2025, 05/02/2025, Additional history exists Falls Risk Assessment 05/04/2026 05/04/2025, 024 Cholesterol Screening (Lipid Panel) 10/14/2029 10/14/2024, 07/15/2024, 03/09/2024, Additional history exists DTaP,Tdap,and Td Vaccines (2 - Td or Tdap) 02/16/2033 02/16/2023 Hepatitis C Screening Completed 02/16/2023 Pneumococcal Vaccine: 50+ Years Completed 10/13/2023, 10/13/2023, 11/24/2017 RSV Immunization Adult Patients Completed 10/13/2023, 09/26/2023 Influenza Vaccine Completed 04/27/2025, , 03/29/2024, Additional history exists HIB Vaccines Aged Out No longer eligi ble based on patient's age to complete this topic HPV Vaccines Aged Out No longer eligi ble based on patient's age to complete this topic Hepatitis A Vaccines Aged Out No long er eligible based on patient's age to complete this topic Hepatitis B Vaccines Aged Out No long er eligible based on patient's age to complete this topic IPV Vaccines Aged Out No longer eligi ble based on patient's age to complete this topic MMR Vaccines Aged Out No longer eligi ble based on patient's age to complete this topic Meningococcal ACWY Vaccine Aged Out N o longer eligible based on patient's age to complete this topic Meningococcal B Vaccine Aged Out No l onger eligible based on patient's age to complete this topic RSV Immunization Patients Under 20 months Aged Out No longer eligible based on patient's age to complete this topic Varicella Vaccines Aged Out No longer eligible based on patient's age to complete this topic Goals Goal Patient Goal Type Associated Problems Recent Progress Patient-Stated? Author Pt to bring all medication into PCP appt on 04/14/2025 General Yes Ethel Meeks RN Procedures Procedure Name Priority Date/Time Associated Diagnosis Comments ECG ANNOTATED 05/05/2025 CBC WITH AUTO DIFFERENTIAL Routine 05/04/2025 6:30 AM EDT MAGNESIUM Timed 05/04/2025 6:30 AM EDT CBC AND DIFFERENTIAL Routine 05/04/2025 6:30 AM EDT BASIC METABOLIC PANEL Routine 05/04/2025 6:30 AM EDT COMPLETE BLOOD COUNT Routine 05/03/2025 3:12 AM EDT BASIC METABOLIC PANEL Routine 05/03/2025 3:12 AM EDT OCCULT BLOOD STOOL, GUAIAC Routine 05/03/2025 1:48 AM EDT RESPIRATORY VIRUS PANEL MOLECULAR STUDY Routine 05/02/2025 11:24 AM EDT XR CHEST 2 VIEWS STAT 05/02/2025 10:2 7 AM EDT VENOUS BLOOD GAS STAT 05/02/2025 9:33 AM EDT TROPONIN I HIGH SENSITIVITY Timed 05/02/2025 9:33 AM EDT MANUAL DIFFERENTIAL - SYSMEX WAM STAT 05/02/2025 7:55 AM EDT CBC WITH AUTO DIFFERENTIAL STAT 05/02/2025 7:55 AM EDT B-TYPE NATRIURETIC PEPTIDE STAT 05/02/2025 7:55 AM EDT MAGNESIUM STAT 05/02/2025 7:55 AM EDT LIPASE STAT 05/02/2025 7:55 AM EDT COMPREHENSIVE METABOLIC PANEL STAT 05/02/2025 7:55 AM EDT CBC AND DIFFERENTIAL STAT 05/02/2025 7:55 AM EDT TROPONIN I HIGH SENSITIVITY Timed 05/02/2025 7:55 AM EDT ECG 12-LEAD STAT 05/02/2025 7:46 AM EDT ECG OUTSIDE 04/26/2025 OXYGEN THERAPY, ADULT Routine 04/24/2025 8:00 AM EDT CBC WITH AUTO DIFFERENTIAL Routine 04/24/2025 5:53 AM EDT CBC AND DIFFERENTIAL Routine 04/24/2025 5:53 AM EDT BASIC METABOLIC PANEL Routine 04/24/2025 5:53 AM EDT OXYGEN THERAPY, ADULT Routine 04/23/2025 8:00 PM EDT OXYGEN THERAPY, ADULT Routine 04/23/2025 8:00 AM EDT CBC WITH AUTO DIFFERENTIAL Routine 04/23/2025 5:53 AM EDT HEPATIC FUNCTION PANEL Routine 5:53 AM EDT CBC AND DIFFERENTIAL Routine 04/23/2025 5:53 AM EDT BASIC METABOLIC PANEL Routine 04/23/2025 5:53 AM EDT OXYGEN THERAPY, ADULT Routine 04/22/2025 8:00 PM EDT OXYGEN THERAPY, ADULT Routine 04/22/2025 8:23 AM EDT OXYGEN THERAPY, ADULT Routine 04/22/2025 8:23 AM EDT CBC WITH AUTO DIFFERENTIAL Routine 04/22/2025 5:43 AM EDT COMPREHENSIVE METABOLIC PANEL Routine 04/22/2025 5:43 AM EDT CBC AND DIFFERENTIAL Routine 04/22/2025 5:43 AM EDT MAGNESIUM Routine 04/22/2025 5:43 AM EDT ECG ANNOTATED 04/22/2025 URINALYSIS WITH REFLEX MICROSCOPIC STAT 04/21/2025 3:30 PM EDT URINALYSIS WITH REFLEX MICROSCOPIC STAT 04/21/2025 3:[address] ANGIO CHEST WO AND/OR W CONTRAST STAT 04/21/2025 10:01 AM EDT Chest pain, unspecified type CT HEAD WO CONTRAST STAT 04/21/2025 1 0:01 AM EDT ECG 12-LEAD Routine 04/21/2025 9:33 AM EDT VENOUS BLOOD GAS STAT 04/21/2025 9:25 AM EDT TROPONIN I HIGH SENSITIVITY Timed 04/21/2025 9:25 AM EDT RESPIRATORY VIRUS PANEL MOLECULAR STUDY STAT 04/21/2025 8:45 AM EDT ECG 12-LEAD Routine 04/21/2025 8:42 AM EDT CBC WITH AUTO DIFFERENTIAL STAT 04/21/2025 8:37 AM EDT CBC AND DIFFERENTIAL STAT 04/21/2025 8:37 AM EDT MAGNESIUM STAT 04/21/2025 8:37 AM EDT TROPONIN I HIGH SENSITIVITY Timed 04/21/2025 8:37 AM EDT B-TYPE NATRIURETIC PEPTIDE STAT 04/21/2025 8:37 AM EDT COMPREHENSIVE METABOLIC PANEL STAT 04/21/2025 8:37 AM EDT XR CHEST 1 VIEW STAT 04/21/2025 8:31 AM EDT ECG 12-LEAD STAT 04/21/2025 8:19 AM EDT WI CRITICAL CARE 30-74 MINUTES Routine 04/21/2025 8:00 AM EDT ECG ANNOTATED 04/07/2025 ECG OUTSIDE 04/07/2025 BASIC METABOLIC PANEL Routine 04/06/2025 10:49 AM EDT CBC WITH AUTO DIFFERENTIAL Routine 04/06/2025 8:32 AM EDT CBC AND DIFFERENTIAL Routine 04/06/2025 8:32 AM EDT OXYGEN THERAPY, ADULT Routine 04/05/2025 7:58 AM EDT OXYGEN THERAPY, ADULT Routine 04/05/2025 7:58 AM EDT OXYGEN THERAPY, ADULT Routine 04/05/2025 7:58 AM EDT B-TYPE NATRIURETIC PEPTIDE STAT 04/05/2025 5:06 AM EDT VENOUS BLOOD GAS STAT 04/05/2025 5:06 AM EDT RESPIRATORY VIRUS PANEL MOLECULAR STUDY STAT 04/05/2025 4:44 AM EDT TROPONIN I HIGH SENSITIVITY Timed 04/05/2025 2:31 AM EDT XR CHEST 2 VIEWS STAT 04/05/2025 2:09 AM EDT PROCALCITONIN Add-On 04/05/2025 1:34 AM EDT C-REACTIVE PROTEIN Add-On 04/05/2025 1: 34 AM EDT CBC WITH AUTO DIFFERENTIAL STAT 04/05/2025 1:34 AM EDT TROPONIN I HIGH SENSITIVITY Timed 04/05/2025 1:34 AM EDT BASIC METABOLIC PANEL STAT 04/05/2025 1:34 AM EDT CBC AND DIFFERENTIAL STAT 04/05/2025 1:34 AM EDT ECG 12-LEAD STAT 04/05/2025 12:53 AM EDT HEMOGLOBIN A1C Routine 10/14/2024 9:41 AM EDT Type 2 diabetes mellitus without complication, without long-term current use of insulin ([facility] V24, [facility] V28) LIPID PANEL WITH REFLEX TO DIRECT LDL Routine 10/14/2024 9:41 AM EDT Hypercholesterolemi a DEPRESSION SCREENING Routine 02/29/2024 FALLS RISK ASSESSMENT Routine 02/29/2024 URINE ALBUMIN CREATININE RATIO Routine 10/12/2023 DIABETES EYE EXAM Routine 08/20/2023 HEPATITIS C SCREENING Routine 02/16/2023 from Last 3 Months or Most Recently Relevant to Health Maintenance Results * ECG-Annotated (05/05/2025) Only the most recent of3 resultswithin the time period is included. us Provider Onbase MD ECG ORDERABLES Final Result * (ABNORMAL) CBC auto differential (05/04/2025 6:30 AM EDT) Only the most recent of8 resultswithin the time period is included. WBC 16.3(H) 4.8 - 10.8 K/mcL LAB HEMETOLOGY METHOD 05/04/2025 6:56 AM [facility] RBC 4.50 4.50 - 5.50 M/mcL LAB HEMETOLOGY METHOD 05/04/2025 6:56 AM [facility] Hemoglobin 13.6 13.5 - 17.5 g/dL LAB HEMETOLOGY METHOD 05/04/2025 6:56 AM [facility] Hematocrit 40.7(L) 42.0 - 54.0 % LAB HEMETOLOGY METHOD 05/04/2025 6:56 AM [facility] MCV 89.6 79.0 - 98.0 FL LAB HEMETOLOGY METHOD 05/04/2025 6:56 AM EDT [facility] MCH 30.0 27.0 - 32.0 pcg LAB HEMETOLOGY METHOD 05/04/2025 6:56 AM [facility] MCHC 33.4 32.0 - 37.0 g/dL LAB HEMETOLOGY METHOD 05/04/2025 6:56 AM T [facility] RDW 16.8(H) 11.0 - 15.0 % LAB HEMETOLOGY METHOD 05/04/2025 6:56 AM T [facility] Platelets 178 130 - 400 K/mcL LAB HEMETOLOGY METHOD 05/04/2025 6:56 AM [facility] MPV 10.4 7.0 - 11.0 FL LAB HEMETOLOGY METHOD 05/04/2025 6:56 AM [facility] NRBC 0.0 <1.0 % LAB HEMETOLOGY METHOD 05/04/2025 6:56 AM [facility] NRBC Absolute 0.00 <0.10 K/mcL LAB HEMETOLOGY METHOD 05/04/2025 6:56 AM [facility] Neutrophils Relative 91.7 % LAB HEMETOLOGY METHOD 05/04/2025 6:56 AM [facility] Lymphocytes Relative 3.1 % LAB HEMETOLOGY METHOD 05/04/2025 6:56 AM [facility] Monocytes Relative 2.3 % LAB HEMETOLOGY METHOD 05/04/2025 6:56 AM [facility] Eosinophils Relative 0.0 % LAB HEMETOLOGY METHOD 05/04/2025 6:56 AM [facility] Basophils Relative 0.3 % LAB HEMETOLOGY METHOD 05/04/2025 6:56 AM [facility] Immature Granulocytes Relative 2.6 % LAB HEMETOLOGY METHOD 05/04/2025 6:56 AM EDT [facility] Neutrophils Absolute 14.96(H) 1.50 - 7.00 K/[facility] LAB HEMETOLOGY METHOD 05/04/2025 6:56 AM EDT [facility] Lymphocytes Absolute 0.51(L) 1.00 - 5.00 K/mcL LAB HEMETOLOGY METHOD 05/04/2025 6:56 AM EDT [facility] Monocytes Absolute 0.38 0.20 - 1.00 K/mcL LAB HEMETOLOGY METHOD 05/04/2025 6:56 AM EDT [facility] Eosinophils Absolute 0.00 0.00 - 0.50 K/[facility] LAB HEMETOLOGY METHOD 05/04/2025 6:56 AM EDT [facility] Basophils Absolute 0.05 0.00 - 0.20 K/mcL LAB HEMETOLOGY METHOD 05/04/2025 6:56 AM EDT [facility] Immature Granulocytes Absolute 0.42(H) 0.00 - 0.03 K/mcL LAB HEMETOLOGY METHOD 05/04/2025 6:56 AM EDT [facility] Blood Venous blood specimen / Unknown Venipuncture / Unknown 05/04/2025 6:30 AM EDT 05/04/2025 6:43 AM EDT Kiesha ARVIZU LAB BLOOD ORDERABLES Final Result [facility] [address] [place] [address], * Magnesium (05/04/2025 6:30 AM EDT) Only the most recent of4 resultswithin the time period is included. Magnesium 2.2 1.9 - 2.6 mg/dL LAB CHEMISTRY METHOD 05/04/2025 7:48 AM EDT [facility] Blood Venous blood specimen / Unknown Venipuncture / Unknown 05/04/2025 6:30 AM EDT 05/04/2025 6:43 AM EDT us Kiesha ARVIZU LAB BLOOD ORDERABLES Final Result [facility] [address] [place] [address], [place] [phone] * (ABNORMAL) Basic metabolic panel (05/04/2025 6:30 AM EDT) Only the most recent of6 resultswithin the time period is included. Sodium 143 133 - 145 mmol/L LAB CHEMISTRY METHOD 05/04/2025 7:48 AM [facility] Potassium 3.7 3.5 - 5.5 mmol/L LAB CHEMISTRY METHOD 05/04/2025 7:48 AM [facility] Chloride 107 96 - 110 mmol/L LAB CHEMISTRY METHOD 05/04/2025 7:48 AM [facility] CO2 27 21 - 32 mmol/L LAB CHEMISTRY METHOD 05/04/2025 7:48 AM [facility] Anion Gap 9 3 - 11 LAB CHEMISTRY METHOD 05/04/2025 7:48 AM [facility] Glucose 158(H) 70 - 100 mg/dL LAB CHEMISTRY METHOD 05/04/2025 7:48 AM [facility] BUN 22 5 - 25 mg/dL LAB CHEMISTRY METHOD 05/04/2025 7:48 AM [facility] Creatinine 1.13 0.70 - 1.30 mg/dL LAB CHEMISTRY METHOD 05/04/2025 7:48 AM [facility] eGFR 69 >=60 mL/min/1. 73m2 LAB CHEMISTRY METHOD 05/04/2025 7:48 AM EDT [facility] Comment:Calculation based on the Chronic Kidney Disease Epidemiology Collaboration (CKD-EPI) equation refit without adjustment for race. BUN/Creatinine Ratio 19.5 LAB CHEMISTRY METHOD 05/04/2025 7:48 AM EDT [facility] Calcium 9.2 8.5 - 10.5 mg/dL LAB CHEMISTRY METHOD 05/04/2025 7:48 AM T [facility] Blood Venous blood specimen / Unknown Venipuncture / Unknown 05/04/2025 6:30 AM EDT 05/04/2025 6:43 AM EDT Kiesha ARVIZU LAB BLOOD ORDERABLES Final Result [facility] [address] [place] [address], [place] [phone] * (ABNORMAL) Complete blood count (05/03/2025 3:12 AM EDT) WBC 13.9(H) 4.8 - 10.8 K/mcL LAB HEMETOLOGY METHOD 05/03/2025 3:29 AM T [facility] RBC 4.40(L) 4.50 - 5.50 M/mcL LAB HEMETOLOGY METHOD 05/03/2025 3:29 AM [facility] Hemoglobin 12.9(L) 13.5 - 17.5 g/dL LAB HEMETOLOGY METHOD 05/03/2025 3:29 AM T [facility] Hematocrit 39.8(L) 42.0 - 54.0 % LAB HEMETOLOGY METHOD 05/03/2025 3:29 AM EDT [facility] MCV 90.2 79.0 - 98.0 FL LAB HEMETOLOGY METHOD 05/03/2025 3:29 AM [facility] MCH 29.3 27.0 - 32.0 pcg LAB HEMETOLOGY METHOD 05/03/2025 3:29 AM EDT [facility] MCHC 32.4 32.0 - 37.0 g/dL LAB HEMETOLOGY METHOD 05/03/2025 3:29 AM EDT [facility] RDW 16.8(H) 11.0 - 15.0 % LAB HEMETOLOGY METHOD 05/03/2025 3:29 AM EDT [facility] Platelets 175 130 - 400 K/mcL LAB HEMETOLOGY METHOD 05/03/2025 3:29 AM EDT [facility] MPV 10.5 7.0 - 11.0 FL LAB HEMETOLOGY METHOD 05/03/2025 3:29 AM EDT [facility] NRBC 0.0 <1.0 % LAB HEMETOLOGY METHOD 05/03/2025 3:29 AM EDT [facility] NRBC Absolute 0.00 <0.10 K/mcL LAB HEMETOLOGY METHOD 05/03/2025 3:29 AM EDT [facility] Blood Venous blood specimen / Unknown Venipuncture / Unknown 05/03/2025 3:12 AM EDT 05/03/2025 3:25 AM EDT us Peg ARVIZU LAB BLOOD ORDERABLES Final R esult [facility] [address] [place] [address], * (ABNORMAL) Occult blood stool, guaiac (05/03/2025 1:48 AM EDT) Occult Blood, Stool #1 Positive( A) Negative 05/03/2025 2:27 AM EDT [facility] Stool Rectum structure / Unknown Non-blood Collection / Unknown 05/03/2025 1:48 AM EDT 05/03/2025 2:15 AM EDT us Peg ARVIZU LAB BODY FLUIDS AND STOOLS O RDERABLES Final Result [facility] [address] [place] [address], [place] [phone] * (ABNORMAL) Respiratory virus panel molecular study (05/02/2025 11:24 AM EDT) Only the most recent of3 resultswithin the time period is included. Adenovirus Detection by PCR Not Detected Not Detected LAB MICROBIOLOGY METHOD 05/02/2025 12:36 PM EDT [facility] Influenza A PCR Not Detected Not Detected LAB MICROBIOLOGY METHOD 05/02/2025 12:36 PM EDT [facility] Influenza B PCR Not Detected Not Detected LAB MICROBIOLOGY METHOD 05/02/2025 12:36 PM EDT [facility] Coronavirus 229E Not Detected Not Detected LAB MICROBIOLOGY METHOD 05/02/2025 12:36 PM EDT [facility] Coronavirus HKU1 Not Detected Not Detected LAB MICROBIOLOGY METHOD 05/02/2025 12:36 PM EDT [facility] Coronavirus OC43 Not Detected Not Detected LAB MICROBIOLOGY METHOD 05/02/2025 12:36 PM EDT [facility] Coronavirus NL63 Not Detected Not Detected LAB MICROBIOLOGY METHOD 05/02/2025 12:36 PM EDT [facility] Parainfluenza Virus 1 Not Detected Not Detected LAB MICROBIOLOGY METHOD 05/02/2025 12:36 PM EDT [facility] Parainfluenza Virus 2 Not Detected Not Detected LAB MICROBIOLOGY METHOD 05/02/2025 12:36 PM EDT [facility] Parainfluenza Virus 3 Not Detected Not Detected LAB MICROBIOLOGY METHOD 05/02/2025 12:36 PM EDT [facility] Parainfluenza Virus 4 Not Detected Not Detected LAB MICROBIOLOGY METHOD 05/02/2025 12:36 PM EDT [facility] RSV PCR Not Detected Not Detected LAB MICROBIOLOGY METHOD 05/02/2025 12:36 PM EDT [facility] Human Metapneumovirus A and B Not Detected Not Detected LAB MICROBIOLOGY METHOD 05/02/2025 12:36 PM EDT [facility] Rhinovirus/Entero virus Not Detected Not Detected LAB MICROBIOLOGY METHOD 05/02/2025 12:36 PM EDT [facility] Bordetella pertussis Not Detected Not Detected LAB MICROBIOLOGY METHOD 05/02/2025 12:36 PM EDT [facility] Bordetella parapertussis Not Detected Not Detected LAB MICROBIOLOGY METHOD 05/02/2025 12:36 PM EDT [facility] Mycoplasma pneumo by PCR Not Detected Not Detected LAB MICROBIOLOGY METHOD 05/02/2025 12:36 PM EDT [facility] Chlamydia pneumoniae Not Detected Not Detected LAB MICROBIOLOGY METHOD 05/02/2025 12:36 PM EDT [facility] SARS COV-2 Detected(A ) Not Detected LAB MICROBIOLOGY METHOD 05/02/2025 12:36 PM EDT [facility] Swab Both anterior nares / Unknown Non-blood Collection / Unknown 05/02/2025 11:24 AM EDT 05/02/2025 11:[address] [facility] - 05/02/2025 12:36 PM EDT Testing was performed using the [employer] Respiratory Pathogen PCR Assay. All results must [...] that are below the limit of detection. Sissy ARVIZU LAB MICROBIOLOGY - GENERAL IDA RODRIGUEZ Final Result [facility] [address] [place] [address], [place] [phone] * XR Chest 2 Views (05/02/2025 10:27 AM EDT) Only the most recent of2 resultswithin the time period is included. Anatomical Region Laterality Modality Body Radiographic Luciana [...] Signed Date: 05/02/2025 10:45 ET Workstation ID: [id number] Transcribed By: Self Edit Transcribed Date: 05/02/2025 [...] Signed Date: 05/02/2025 10:45 ET Workstation ID: [id number] Transcribed By: Self Edit Transcribed Date: 05/02/2025 10:41 ET Dano Gaspar MD IMG XR PROCEDURES Final Resu lt * Troponin I high sensitivity (05/02/2025 9:33 AM EDT) Only the most recent of6 resultswithin the time period is included. [facility] High Sensitivity Troponin I 13 <=79 ng/L LAB CHEMISTRY METHOD 05/02/2025 10:38 AM EDT [facility] Blood Venous blood specimen / Unknown Venipuncture / Unknown 05/02/2025 9:33 AM EDT 05/02/2025 9:39 AM EDT Narrative [facility] - 05/02/2025 10:38 AM EDT High levels of biotin in samples may falsely decrease hsTroponin values. Use caution when interpreting hsTroponin results in patients taking biotin who exhibit renal impairment (eGFR <60) or in patients taking more than 20 mg/day of biotin. Dano Gaspar MD LAB BLOOD ORDERABLES Final R esult [facility] [address] [place] [address], * (ABNORMAL) Venous blood gas (05/02/2025 9:33 AM EDT) Only the most recent of3 resultswithin the time period is included. [facility] pH, [place] 7.40 7.32 - 7.42 pH 05/02/2025 9:42 AM EDT [facility] pCO2, [place] 59(H) 41 - 51 mmHg 05/02/2025 9:42 AM EDT [facility] pO2, [place] 28 25 - 40 mmHg 05/02/2025 9:42 AM EDT [facility] HCO3, Venous 30.5(H) 22.0 - 26.0 mmol/L 05/02/2025 9:42 AM EDT [facility] O2 Sat, [place] 37.5 % 05/02/2025 9:42 AM EDT [facility] Base Excess, [place] 9.4(H) -2.0 - 2.0 mmol/L 05/02/2025 9:42 AM EDT [facility] Blood Venous blood specimen / Unknown Venipuncture / Unknown 05/02/2025 9:33 AM EDT 05/02/2025 9:38 AM EDT us Dano Gaspar MD LAB BLOOD ORDERABLES Final R esult [facility] [address] [place] [address], * (ABNORMAL) Manual differential (05/02/2025 7:55 AM EDT) Neutrophils % 85.0 % LAB HEMETOLOGY METHOD 5 8:39 AM EDT [facility] Lymphocytes % 9.0 % LAB HEMETOLOGY METHOD 5 8:39 AM [facility] Monocytes % 3.0 % LAB HEMETOLOGY METHOD 8:39 AM [facility] Eosinophils % 2.0 % [facility] Basophils % 0.0 % LAB HEMETOLOGY METHOD 5 8:39 AM EDT [facility] Metamyelocytes % 2.0(H) % LAB HEMETOLOGY METHOD 5 8:39 AM EDT [facility] Myelocytes % 1.0(H) % LAB HEMETOLOGY METHOD 5 8:39 AM [facility] Neutrophils Absolute Manual 13.94(H) 1.50 - 7.00 K/mcL LAB HEMETOLOGY METHOD 5 8:39 AM EDT [facility] Lymphocytes Absolute 1.48 1.00 - 5.00 K/mcL LAB HEMETOLOGY METHOD 8:39 AM EDT [facility] Monocytes Absolute Manual 0.49 0.20 - 1.00 K/mcL LAB HEMETOLOGY METHOD 8:39 AM EDT [facility] Eosinophils Absolute Manual 0.33 0.00 - 0.50 K/[facility] LAB HEMETOLOGY METHOD 8:39 AM EDT [facility] Basophils Absolute Manual 0.00 0.00 - 0.20 K/[facility] LAB HEMETOLOGY METHOD 8:39 AM EDT [facility] Metamyelocytes Absolute Manual 0.33(H) 0.00 - 0.00 K/mcL LAB HEMETOLOGY METHOD 8:39 AM EDT [facility] Myelocytes Absolute Manual 0.16(H) 0.00 - 0.00 K/mcL LAB HEMETOLOGY METHOD 8:39 AM EDT [facility] Rbc Morphology Consistent with indices Consistent with indices, Normal for LAB HEMETOLOGY METHOD 8:39 AM EDT [facility] Platelet Morphology - WAM See Note(A) Normal LAB HEMETOLOGY METHOD 8:39 AM EDT [facility] Comment:PLT: Normal Blood Venous blood specimen / Unknown Venipuncture / Unknown 05/02/2025 7:55 AM EDT 05/02/2025 8:03 AM EDT us Dano Gaspar MD LAB BLOOD ORDERABLES Final R esult [facility] [address] [place] [address], [place] [phone] * B-type natriuretic peptide (05/02/2025 7:55 AM EDT) Only the most recent of3 resultswithin the time period is included. [facility] BNP 73 <=100 pcg/mL LAB CHEMISTRY METHOD 05/02/2025 8:48 AM EDT [facility] Blood Venous blood specimen / Unknown Venipuncture / Unknown 05/02/2025 7:55 AM EDT 05/02/2025 8:03 AM EDT us Dano Gaspar MD LAB BLOOD ORDERABLES Final R esult Performing Organization Address City/[facility]/ZIP Co de Phone Number [facility] [address] [place] [address], * Lipase (05/02/2025 7:55 AM EDT) [facility] Lipase 23 13 - 75 unit/L LAB CHEMISTRY METHOD 05/02/2025 8:40 AM EDT [facility] Blood Venous blood specimen / Unknown Venipuncture / Unknown 05/02/2025 7:55 AM EDT 05/02/2025 8:03 AM EDT us Dano Gaspar MD LAB BLOOD ORDERABLES Final R esult [facility] [address] [place] [address], [place] [phone] * (ABNORMAL) Comprehensive metabolic panel (05/02/2025 7:55 AM EDT) Only the most recent of3 resultswithin the time period is included. [facility] Sodium 142 133 - 145 mmol/L LAB CHEMISTRY METHOD 05/02/2025 9:18 AM EDT [facility] Potassium 3.2(L) 3.5 - 5.5 mmol/L LAB CHEMISTRY METHOD 05/02/2025 9:18 AM [facility] Chloride 104 96 - 110 mmol/L LAB CHEMISTRY METHOD 05/02/2025 9:18 AM [facility] CO2 31 21 - 32 mmol/L LAB CHEMISTRY METHOD 05/02/2025 9:18 AM [facility] Anion Gap 7 3 - 11 LAB CHEMISTRY METHOD 05/02/2025 9:18 AM [facility] Glucose 94 70 - 100 mg/dL LAB CHEMISTRY METHOD 05/02/2025 9:18 AM [facility] BUN 17 5 - 25 mg/dL LAB CHEMISTRY METHOD 05/02/2025 9:18 AM [facility] Creatinine 0.99 0.70 - 1.30 mg/dL LAB CHEMISTRY METHOD 05/02/2025 9:18 AM [facility] eGFR 80 >=60 mL/min/1. 73m2 LAB CHEMISTRY METHOD 05/02/2025 9:18 AM [facility] Comment:Calculation based on the Chronic Kidney Disease Epidemiology Collaboration (CKD-EPI) equation refit without adjustment for race. BUN/Creatinine Ratio 17.2 LAB CHEMISTRY METHOD 05/02/2025 9:18 AM [facility] Calcium 9.0 8.5 - 10.5 mg/dL LAB CHEMISTRY METHOD 05/02/2025 9:18 AM [facility] AST (SGOT) 19 10 - 42 unit/L LAB CHEMISTRY METHOD 05/02/2025 9:18 AM [facility] ALT (SGPT) 54 10 - 60 unit/L LAB CHEMISTRY METHOD 05/02/2025 9:18 AM [facility] Alkaline Phosphatase 86 42 - 121 unit/L LAB CHEMISTRY METHOD 05/02/2025 9:18 AM [facility] Total Protein 5.8(L) 6.0 - 8.0 g/dL LAB CHEMISTRY METHOD 05/02/2025 9:18 AM EDT [facility] Albumin 2.8(L) 3.2 - 5.0 g/dL LAB CHEMISTRY METHOD 05/02/2025 9:18 AM EDT [facility] Total Bilirubin 1.0 0.0 - 1.4 mg/dL LAB CHEMISTRY METHOD 05/02/2025 9:18 AM EDT [facility] Comment:Results verified by repeat testing Blood Venous blood specimen / Unknown Venipuncture / Unknown 05/02/2025 7:55 AM EDT 05/02/2025 8:03 AM EDT Dano Gaspar MD LAB BLOOD ORDERABLES Final R esult [facility] [address] [place] [address], [place] [phone] * ECG 12 lead (05/02/2025 7:46 AM EDT) Only the most recent of5 resultswithin the time period is included. Ventricular Rate ECG 80 BPM GEMUSE Atrial Rate 80 BPM GEMUSE P-R Interval 276 ms GEMUSE QRS Duration 146 ms GEMUSE Q-T Interval 382 ms GEMUSE QTc 440 ms GEMUSE R [place] 57 degrees GEMUSE T [place] -37 degrees GEMUSE ECG Interpretation Atrial fibrillation Right bundle branch block T wave abnormality, consider inferior ischemia Abnormal ECG When compared with ECG of 21-APR-2025 09:33, No significant change was found Confirmed by MD Pasha, [place] ([id number]) on 05/03/2025 8:41:48 AM GEMUSE 05/02/2025 7:46 AM EDT 05/03/2025 8:41 AM EDT Dano Gaspar MD ECG ORDERABLES Final Result GEMUSE * ECG-Outside (04/26/2025) Only the most recent of2 resultswithin the time period is included. us Provider Onbase ECG ORDERABLES Final Result * (ABNORMAL) Hepatic function panel (04/23/2025 5:53 AM EDT) Total Protein 5.6(L) 6.0 - 8.0 g/dL LAB CHEMISTRY METHOD 04/23/2025 7:17 AM EDT [facility] Albumin 2.7(L) 3.2 - 5.0 g/dL LAB CHEMISTRY METHOD 04/23/2025 7:17 AM EDT [facility] Total Bilirubin 0.4 0.0 - 1.4 mg/dL LAB CHEMISTRY METHOD 04/23/2025 7:17 AM [facility] Bilirubin, Direct <0.1 0.0 - 0.3 mg/dL LAB CHEMISTRY METHOD 04/23/2025 7:17 AM [facility] Bilirubin, Indirect LAB CHEMISTRY METHOD 04/23/2025 7:17 AM [facility] Comment:Unable to calculate Indirect Bilirubin. ALT (SGPT) 36 10 - 60 unit/L LAB CHEMISTRY METHOD 04/23/2025 7:17 AM [facility] AST (SGOT) 14 10 - 42 unit/L LAB CHEMISTRY METHOD 04/23/2025 7:17 AM [facility] Alkaline Phosphatase 65 42 - 121 unit/L LAB CHEMISTRY METHOD 04/23/2025 7:17 AM [facility] Blood Venous blood specimen / Unknown Venipuncture / Unknown 04/23/2025 5:53 AM EDT 04/23/2025 6:30 AM EDT Coy Kimball MD LAB BLOOD ORDERABLES Final R esult [facility] [address] [place] [address], [place] [phone] * (ABNORMAL) Urinalysis with reflex microscopic (04/21/2025 3:30 PM EDT) Specific [place] Urine >1.045(H) 1.003 - 1.030 LAB URINALYSIS - AUTOMATED METHOD 04/21/2025 4:23 PM [facility] pH, Urine 5.5 5.0 - 8.0 pH LAB URINALYSIS - AUTOMATED METHOD 04/21/2025 4:23 PM [facility] Leukocytes, Urine Negative Negative LAB URINALYSIS - AUTOMATED METHOD 04/21/2025 4:23 PM [facility] Nitrite, Urine Negative Negative LAB URINALYSIS - AUTOMATED METHOD 04/21/2025 4:23 PM [facility] Protein, Urine Trace <=Trace mg/dL LAB URINALYSIS - AUTOMATED METHOD 04/21/2025 4:23 PM [facility] Glucose, Urine Negative Negative mg/dL LAB URINALYSIS - AUTOMATED METHOD 04/21/2025 4:23 PM [facility] Ketones, Urine Negative Negative mg/dL LAB URINALYSIS - AUTOMATED METHOD 04/21/2025 4:23 PM [facility] Urobilinogen , Urine 0.2 0.2 - 1.0 mg/dL LAB URINALYSIS - AUTOMATED METHOD 04/21/2025 4:23 PM [facility] Bilirubin, Urine Negative Negative LAB URINALYSIS - AUTOMATED METHOD 04/21/2025 4:23 PM [facility] Blood, Urine Negative Negative LAB URINALYSIS - AUTOMATED METHOD 04/21/2025 4:23 PM [facility] Urine Urine specimen obtained by clean catch procedure / Unknown Non-blood Collection / Unknown 04/21/2025 3:30 PM EDT 04/21/2025 4:16 PM EDT Malathi Swain MD LAB URINE ORDERABLES Final Res ult [facility] [address] [place] [address], * CT Angio Chest wo and/or w Contrast (04/21/2025 10:01 AM EDT) Anatomical Region Laterality Modality Body Computed Tomogra phy 04/21/2025 10:1 1 AM EDT Impressions 04/21/2025 10:22 AM EDT No pulmonary embolus demonstrated. No evidence of aortic dissection. There is coronary calcification. Severe underlying lung disease with evidence of prior surgery. Pleural calcifications. -------- FINAL REPORT -------- Dictated By: José Miguel Waters Dictated Date: 04/21/2025 10:11 ET Assigned Physician: José Miguel Waters Reviewed and Electronically Signed By: José Miguel Waters Signed Date: 04/21/2025 10:22 ET Workstation ID: [id number] Transcribed By: Self Edit Transcribed Date: 04/21/2025 10:11 ET Narrative 04/21/2025 10:22 AM EDT EXAMINATION: CTA CHEST WITH CONTRAST CLINICAL INFORMATION: [...] pneumothorax. There is pleural or extrapleural thickening and there is right-sided pleural calcification. AXILLA/CHEST WALL: There are no enlarged axillary lymph nodes. No chest wall mass demonstrated MUSCULOSKELETAL: No focal bony lesion. Atrophy of the left infraspinatus. VISUALIZED UPPER ABDOMEN: No suspicious abnormality on limited assessment of the visualized upper abdomen There is no reflux of contrast into the IVC or hepatic veins. Procedure Note José Miguel Waters MD - 04/21/2025 EXAMINATION: CTA CHEST WITH CONTRAST CLINICAL INFORMATION: Chest pain. Shortness of breath COMPARISON: Portions of CT performed without contrast 11/23/24 TECHNIQUE: CT angiography using pulmonary embolus timing Multidetector CT. Examination of the chest. Examination of the chest following the IV administration of nonioniccontrast. Reformatting in the coronal and sagittal planes. DLP: 682 mGy-cm Dose optimization was performed including the use of low-dose iterativereconstruction technique with automatic exposure control based on patientsize. Type of contrast: ISOVUE 370 Volume of IV contrast: 90 mL Volume of contrast discarded: 0 mL FINDINGS: QUALITY: Good PULMONARY ARTERIES: No pulmonary embolus demonstrated LUNG: The trachea and mainstem bronchi are patent. 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 Severe underlying emphysema. There are reticular opacities in thedependent lower lung zones with stacked lucencies possibly early honeycombformation. There is linear calcified abnormality in the periphery of the right lowerchest and there is pleural calcification posteromedially in the right. No acute focal pneumonia. When compared to 11/23/24 small peripheral nodules laterally in the leftlower lung are unchanged (3/178) MEDIASTINUM: No change in the lymph nodes around the right hilum andright upper lobe airways. No change in lymph nodes in the rightparatracheal region. CARDIAC: The heart is not enlarged. No pericardial fluid or thickening There is no CT evidence of elevated right heart pressures. CORONARY CALCIFICATION: Moderate coronary calcification VASCULAR: There is no thoracic aortic aneurysm. The main pulmonary arteryis normal caliber PLEURAL: There is no pleural fluid or pneumothorax. There is pleural orextrapleural thickening and there is right-sided pleural calcification. AXILLA/CHEST WALL: There are no enlarged axillary lymph nodes. No chestwall mass demonstrated MUSCULOSKELETAL: No focal bony lesion. Atrophy of the left infraspinatus. VISUALIZED UPPER ABDOMEN: No suspicious abnormality on limited assessmentof the visualized upper abdomen There is no reflux of contrast into theIVC or hepatic veins. IMPRESSION: No pulmonary embolus demonstrated. No evidence of aortic dissection. There is coronary calcification. Severe underlying lung disease with evidence of prior surgery. Pleural calcifications. -------- FINAL REPORT -------- Dictated By: José Miguel Waters Dictated Date: 04/21/2025 10:11 ET Assigned Physician: José Miguel Waters Reviewed and Electronically Signed By: José Miguel Waters Signed Date: 04/21/2025 10:22 ET Workstation ID: [id number] Transcribed By: Self Edit Transcribed Date: 04/21/2025 10:11 ET Malathi Swain MD IM CT PROCEDURES Final Result * CT Head wo Contrast (04/21/2025 10:01 AM EDT) Anatomical Region Laterality Modality Head and Neck Computed Tomogra phy 04/21/2025 10:2 2 AM EDT Impressions 04/21/2025 10:27 AM EDT No intracranial hemorrhage. No mass. No suspicious focal area of abnormal brain attenuation. Nonspecific opacification of some of the mastoid air cells. -------- FINAL REPORT -------- Dictated By: José Miguel Waters Dictated Date: 04/21/2025 10:22 ET Assigned Physician: José Miguel Waters Reviewed and Electronically Signed By: José Miguel Waters Signed Date: 04/21/2025 10:27 ET Workstation ID: [id number] Transcribed By: Self Edit Transcribed Date: 04/21/2025 10:22 ET Narrative 04/21/2025 10:27 AM EDT EXAMINATION: CT HEAD WITHOUT CONTRAST CLINICAL INFORMATION: [...] focal bony lesion. Prior right lens extraction. Procedure Note José Miguel Waters MD - 04/21/2025 EXAMINATION: CT HEAD WITHOUT CONTRAST CLINICAL INFORMATION: Weakness. Shortness of breath. Moderate distress. COMPARISON: Portions of previous CT 11/26/14. TECHNIQUE: Multidetector CT. Examination of the head. Examination of the head without IV contrast. Reformatting in the coronal and sagittal planes. DLP: 1070 mGy-cm Dose optimization was performed including the use of low-dose iterativereconstruction technique with automatic exposure control based on patientsize. Type of contrast: None Volume of IV contrast: None Volume of contrast discarded: 0 mL FINDINGS: Intracranial hemorrhage: No evidence of recent intracranial hemorrhage. Ventricles, cisterns and sulci: There is no midline shift. The ventriclecisterns and sulci appear within normal limits. Extra-axial mass or collections: No extra-axial mass or collection Intra-axial mass: No mass demonstrated Acute infarct: No acute territorial infarct demonstrated. White matter disease: No significant white matter disease demonstrated. San-white interface: No disruption of the san-white interface. Paranasal sinuses: The visualized paranasal sinuses are well pneumatizedand aerated. There is opacification of some of the mastoid air cells oneach side. This was not present on 11/26/14. Osseous/Scalp: No focal bony lesion. Prior right lens extraction. IMPRESSION: No intracranial hemorrhage. No mass. No suspicious focal area of abnormal brain attenuation. Nonspecific opacification of some of the mastoid air cells. -------- FINAL REPORT -------- Dictated By: José Miguel Waters Dictated Date: 04/21/2025 10:22 ET Assigned Physician: José Miguel Waters Reviewed and Electronically Signed By: José Miguel Waters Signed Date: 04/21/2025 10:27 ET Workstation ID: [id number] Transcribed By: Self Edit Transcribed Date: 04/21/2025 10:22 ET Malathi Swain MD IMG CT PROCEDURES Final Result * XR Chest 1 View (04/21/2025 8:31 AM EDT) Anatomical Region Laterality Modality Body Radiographic Luciana ging 04/21/2025 8:50 AM EDT Impressions 04/21/2025 8:52 AM EDT Severe lung disease. Extensive prior surgery. Linear possibly calcified density in the periphery of the right lower chest. Correlate with any history of pleurodesis or asbestos exposure. No definite pneumothorax or acute focal pneumonia. -------- FINAL REPORT -------- Dictated By: José Miguel Waters Dictated Date: 04/21/2025 08:50 ET Assigned Physician: José Miguel Waters Reviewed and Electronically Signed By: José Miguel Waters Signed Date: 04/21/2025 08:52 ET Workstation ID: [id number] Transcribed By: Self Edit Transcribed Date: 04/21/2025 08:50 ET Narrative 04/21/2025 8:52 AM EDT EXAMINATION: CHEST CLINICAL INFORMATION: COPD. Shortness of [...] thickening. No convincing pneumothorax. Limited bone detail Procedure Note José Miguel Waters MD - 04/21/2025 EXAMINATION: CHEST CLINICAL INFORMATION: COPD. Shortness of breath COMPARISON: Frontal view 04/05/25 TECHNIQUE: Portable frontal sitting view of the chest FINDINGS: There is moderate rotation to the right. The mediastinal margins and andrew are partially obscured. No suspiciousinterval changes. Extensive metallic sutures in the upper chest bilaterally. There is high density with a linear configuration in the periphery of theright lower chest. This could be related to calcification. There is diffuse reticular opacities throughout the remainder of bothlungs with relative sparing of the right upper lung. There is biapical thickening. No convincing pneumothorax. Limited bone detail IMPRESSION: Severe lung disease. Extensive prior surgery. Linear possibly calcifieddensity in the periphery of the right lower chest. Correlate with anyhistory of pleurodesis or asbestos exposure. No definite pneumothorax or acute focal pneumonia. -------- FINAL REPORT -------- Dictated By: José Miguel Waters Dictated Date: 04/21/2025 08:50 ET Assigned Physician: José Miguel Waters Reviewed and Electronically Signed By: José Miguel Waters Signed Date: 04/21/2025 08:52 ET Workstation ID: [id number] Transcribed By: Self Edit Transcribed Date: 04/21/2025 08:50 ET us Malathi Swain MD IMG XR PROCEDURES Final Result * [place] CRITICAL CARE 30-74 MINUTES (04/21/2025 8:00 AM EDT) Malathi Brown MD - 04/21/2025 8:00 AM EDT Malathi Swain MD 04/21/2025 11:38 AM Critical Care Performed by: Malathi Swain MD Authorized by: Malathi Swain MD Critical care provider statement: Critical care time (minutes): 36 Total face to face critical care time (minutes): 36 Critical care time was exclusive of: Separately billable procedures and treating other patients Critical care was time spent personally by me on the following activities: Development of treatment plan with patient or surrogate, discussions with consultants, evaluation of patient's response to treatment, ordering and review of laboratory studies, ordering and review of radiographic studies, re-evaluation of patient's condition, review of old charts, ordering and performing treatments and interventions and examination of patient Face to face critical care was time spent personally by me on the following activities: Evaluation of patient's response to treatment, examination of patient, pulse oximetry, re-evaluation of patient's condition and ventilator management I assumed direction of critical care for this patient from another provider in my specialty: no Care discussed with: admitting provider us Malathi Swain MD IN CLINIC/BEDSIDE ORDERABLES E dited Result - Final * Procalcitonin (04/05/2025 1:34 AM EDT) Procalcitonin 0.12 <=0.16 ng/mL LAB CHEMISTRY METHOD 04/05/2025 10:03 AM EDT [facility] Blood Venous blood specimen / Unknown Venipuncture / Unknown 04/05/2025 1:34 AM EDT 04/05/2025 1:51 AM EDT Narrative [facility] - 04/05/2025 10:03 AM EDT Procalcitonin > 2.00 ng/ml: Procalcitonin Levels above 2.00 ng/ml, on the first day of ICU admission represent a high risk for progression to severe sepsis and/or septic shock. Procalcitonin < 0.50 ng/ml: Procalcitonin levels below 0.50 ng/ml on the first day of ICU admission represent a low risk for progression to severe sepsis and/or septic shock. Concentrations <0.5 ng/mL do not exclude an infection, on account of local ized infections (without systemic signs) which can be associated with such low concentrations, or a systemic infection in its initial stages (<6 hours). Furthermore, increased procalcitonin can occur without infection. PCT concentrations between 0.5 and 2.0 ng/mL should be interpreted taking into account the patient's history. It is recommended to retest PCT within 6-24 hours if any concentrations <2.0 ng/mL are obtained. us Kendall Solares MD LAB BLOOD ORDERABLES Final Result Performing Organization Address [facility] Co de Phone Number [facility] [address] [place] [address], [place] [phone] * C-reactive protein (04/05/2025 1:34 AM EDT) [facility] C-Reactive Protein <0.29 <=0.50 mg/dL LAB CHEMISTRY METHOD 04/05/2025 5:42 AM EDT [facility] Blood Venous blood specimen / Unknown Venipuncture / Unknown 04/05/2025 1:34 AM EDT 04/05/2025 1:51 AM EDT us Kendall Solares MD LAB BLOOD ORDERABLES Final Result Performing Organization Address [facility] de Phone Number [facility] [address] [place] [address], [place] [phone] * Lipid panel with reflex to direct LDL (10/14/2024 9:41 AM EDT) Cholesterol 135 0 - 200 mg/dL LAB CHEMISTRY METHOD 10/14/2024 1:55 PM EDT [facility] Triglycerides 91 0 - 150 mg/dL LAB CHEMISTRY METHOD 10/14/2024 1:55 PM EDT [facility] HDL 63 >=40 mg/dL LAB CHEMISTRY METHOD 10/14/2024 1:55 PM EDT [facility] LDL Calculated 54 0 - 100 mg/dL LAB CHEMISTRY METHOD 10/14/2024 1:55 PM EDT [facility] VLDL Cholesterol Toi 18.2 mg/dL LAB CHEMISTRY METHOD 10/14/2024 1:55 PM EDT [facility] Non HDL Chol. (LDL+VLDL) 72 <145 mg/dL LAB CHEMISTRY METHOD 10/14/2024 1:55 PM EDT [facility] Chol/HDL Ratio 2.1 0.0 - 4.4 LAB CHEMISTRY METHOD 10/14/2024 1:55 PM EDT [facility] Blood Venous blood specimen / Unknown Venipuncture / Unknown 10/14/2024 9:41 AM EDT 10/14/2024 9:41 AM EDT Karen Parsons NP LAB BLOOD ORDERABLES Final Resu lt [facility] [address] [place] [address], [place] [phone] * (ABNORMAL) Hemoglobin A1c (10/14/2024 9:41 AM EDT) Hemoglobin A1C 6.5(H) <6.5 % LAB CHEMISTRY METHOD 10/14/2024 1:29 PM EDT [facility] Mean Bld Glu Estim. 140 mg/dL LAB CHEMISTRY METHOD 10/14/2024 1:29 PM EDT [facility] Blood Venous blood specimen / Unknown Venipuncture / Unknown 10/14/2024 9:41 AM EDT 10/14/2024 9:41 AM EDT Karen Parsons NP LAB BLOOD ORDERABLES Final Resu lt [facility] [address] [place] [address], [place] [phone] * Falls Risk Assessment (02/29/2024) Falls Risk Assessment abstracted Historical Provider HEALTH MAINTENANCE Final Result * Depression Screening (02/29/2024) Pathologist [facility] Depression Screening abstracted Historical Provider HEALTH MAINTENANCE Final Result * Urine Albumin Creatinine Ratio (10/12/2023) Pathologist [facility] Urine Albumin Creatinine Ratio abstracted [facility] Provider HEALTH MAINTENANCE Final Result * Diabetes Eye Exam (08/20/2023) [facility] Diabetes: Annual Retina Eye Exam abstracted Historical Provider HEALTH MAINTENANCE Final Result * Hepatitis C Screening (02/16/2023) Pathologist [facility] Hepatitis C Screening abstracted [facility] Provider HEALTH MAINTENANCE Final Result from Last 3 Months or Most Recently Relevant to Health Maintenance Additional Health Concerns Infection Onset Date Last Indicated COVID-19 05/02/2025 05/02/2025 Insurance MEDICARE [facility] Advance Directives Documents on File Type Date Recorded Patient Director Of Special Services Expl anation Advance Directives and Living Will 05/04/2025 5:28 PM [facility] Advance Directives and Living Will 05/04/2025 2:47 PM Brittany Kenney [facility] Care Pr oxy * Full Code - Confirmed (Latest Code Status on File) Date Activated Date Inactivated Comments 05/02/2025 11:56 AM 05/04/2025 6:38 PM This code status was ascertained in the following way: Code status discussion: discussion with patient and daughter at bedside To update the patient's code status, place a code status order. Do not modify or discontinue any currently active code status orders. * Full Code - Default Date Activated Date Inactivated Comments 05/02/2025 11:05 AM 05/02/2025 11:56 AM This is order is used when code status has not been discussed with the patient, or code status is otherwise unknown/unconfirmed To update the patient's code status, place a code status order. Do not modify or discontinue any currently active code status orders. * Full Code - Default Date Activated Date Inactivated Comments 04/21/2025 12:01 PM 04/25/2025 2:12 PM This is ord er is used when code status has not been discussed with the patient, or code status is otherwise unknown/unconfirmed To update the patient's code status, place a code status order. Do not modify or discontinue any currently active code status orders. * Full Code - Confirmed Date Activated Date Inactivated Comments 04/05/2025 6:41 AM 04/06/2025 2:[address] atus was ascertained in the following way: Code status discussion: discussion with patient To update the patient's code status, place a code status order. Do not modify or discontinue any currently active code status orders. * Full Code - Default Date Activated Date Inactivated Comments 04/05/2025 6:08 AM 04/05/2025 6:41 AM This is orde r is used when code status has not been discussed with the patient, or code status is otherwise unknown/unconfirmed To update the patient's code status, place a code status order. Do not modify or discontinue any currently active code status orders. Healthcare Agents on File Name Relationship Healthcare Agent Relationshi p Communication Brittany Christian Daughter Health Care Agent Vidal Christian Grandchild First Alternate Health Care Agent Care Teams Cut Press Operator Relationship Specialty Start Date End Date Karen Parsons NP [address] [place] [address] [place] [id number] PCP - General 04/10/23
[2025-05-08 06:58] LABS: Hematocrit 40.0 % (42.0-52.0); Hemoglobin 13.0 g/dl (14.0-18.0); Mean Corpuscular HGB Conc 32.5 g/dl (31.0-36.0); Mean Corpuscular Hemoglobin 29.7 pg (27.0-33.0); Mean Corpuscular Volume 91.3 fL (80.0-98.0); NRBC Abs Auto 0.000 X10*3/uL (0.0-0.012); NRBC Pct Auto 0.0 /100WBC (0.0-0.2); Platelet Count 178 X10*3/uL (160-400); Red Blood Count 4.38 X10*6/uL (4.60-5.80); White Blood Count 11.1 X10*3/uL (4.8-10.8)
[2025-05-08 07:13] LABS: Anion Gap 12 (12-20); Blood Urea Nitrogen 13 mg/dL (9-16); Calcium 8.5 mg/dL (8.4-10.2); Carbon Dioxide 25 mmol/L (22-29); Chloride 107 mmol/L (96-108); Estimated Glomerular Filt Rate > 60; Potassium 3.4 mmol/L (3.3-5.1); Sodium 141 mmol/L (135-145)
[2025-05-08 09:02] LABS: Band Neutrophils Percent 4 % (3-5); Eosinophils Absolute Manual 0.2 X10*3/uL (0.0-0.4); Eosinophils Percent Manual 2 % (0-4); Lymphocytes Absolute Manual 1.2 X10*3/uL (1.2-4.9); Lymphocytes Percent Manual 11 % (20-40); Metamyelocytes Absolute 0.2 X10*3/uL; Metamyelocytes Percent 2 %; Monocytes Absolute Manual 0.3 X10*3/uL (0.1-1.2); Monocytes Percent Manual 3 % (2-11); Myelocytes Absolute 0.3 X10*/uL; Myelocytes Percent 3 %; Neutrophils Absolute Manual 8.8 X10*3/uL (2.0-8.3); Neutrophils Percent Manual 75 % (45-73); RBC Morphology NORMAL
== END 2025-05-08 05:46 | disposition home or self-care (01) ==
LOC: HO.MMNH1L 05:45
PROVIDERS: Visit Provider Physician Assistant Medical
DX: B37.81 Candidal esophagitis (principal)
CPT/HCPCS: 36415; 80048; 85007; 85025; 85027